=== PATIENT | male | born 1955 | race Caucasian/White ===

== ENCOUNTER 2016-09-08 08:10 | Day surgery (SDC) | payer OTHER ==
[2016-09-04 14:58] VITALS: BMI 25.8
[~2016-09-08 08:10] MED LIST: HYDROmorphone 1 MG/ML 1 ML SYRINGE IVP PRN; ONDANSETRON 4 MG/2 ML VIAL IVP ONE
[2016-09-08] MEDS: SODIUM CHLORIDE 0.9% 1,000 ML IV SCH ×2 (08:40→15:33)
[2016-09-08 08:46] LABS: Glucose,Whole Blood 101 mg/dL (75-99)
[2016-09-08 08:52] LABS: Basophils # (A) 0.1 k/uL (0-0.2); Basophils % (A) 1 %; CH 32.2; CHCM 34.5; Eosinophils # (A) 0.4 k/uL (0-0.7); Eosinophils % (A) 4 %; HCT 43.5 % (39.0-53.0); HDW 2.61; HGB 14.3 gm/dL (13.0-17.5); Luc # (Auto) 0.22; Luc % (Auto) 2; Lymphocytes # (A) 2.1 k/uL (1.0-4.8); Lymphocytes % (A) 22 %; MCH 30.9 pg (25.0-35.0); MCV 93.6 fL (80.0-100.0); Mean Platelet Volume 6.2; Monocytes # (A) 0.5 k/uL (0-1.0); Monocytes % (A) 6 %; Neutrophils # (A) 6.2 k/uL (1.3-7.7); Neutrophils % (A) 65 %; RBC 4.65 m/uL (4.30-5.90); RDW 13.2 % (11.5-15.5); WBC 9.5 k/uL (3.8-10.6); WBC (Perox) 9.57
[2016-09-08 09:03] LABS: Anion Gap 11 mmol/L; Blood Urea Nitrogen 23 mg/dL (9-20); Calcium 10.1 mg/dL (8.4-10.2); Carbon Dioxide 25 mmol/L (22-30); Chloride 105 mmol/L (98-107); Cholesterol 239 mg/dL (<200); Glucose 104 mg/dL (74-99); HDL Cholesterol 48 mg/dL (40-60); Non-African American GFR(MDRD) >60 (>60 ml/min/1.73 sqM); Potassium 4.3 mmol/L (3.5-5.1); Sodium 141 mmol/L (137-145); Triglycerides 164 mg/dL (<150)
[2016-09-08] MEDS ORDERED: PROPOFOL 10 MG/ML 20 ML VIAL IV ONE (12:05)
[2016-09-08] MEDS ORDERED: MIDAZOLAM 2 MG/2 ML VIAL ONE (12:05)
[2016-09-08] MEDS ORDERED: HYDROmorphone (PF) 1 MG/ML ONE (12:05)
[2016-09-08] MEDS ORDERED: ISOPROTERENOL 250 MCG/1.25 ML SYR IV ONE (12:05)
[2016-09-08] MEDS ORDERED: fentaNYL (PF) 50 MCG/ML 2 ML AMP ONE (12:05)
[2016-09-08] MEDS ORDERED: LIDOCAINE 2% INJ 20 MG/ML SQ ONE (12:45)
[2016-09-08] MEDS ORDERED: ACETAMINOPHEN TAB 325 MG TAB PO PRN (14:47)
[2016-09-08] MEDS ORDERED: ACETAMINOPHEN IV (For NPO) 1,000 MG in EMPTY BAG 1 BAG IVPB ONE (14:47)
[2016-09-08] MEDS ORDERED: HYDROcodone/APAP 5-325MG 1 EACH TAB PO PRN (14:47)
[2016-09-08] MEDS ORDERED: ALBUTEROL NEBULIZED 2.5 MG/3 ML INHALATION PRN (14:49)
--- NOTE | 2016-09-08 14:54 | P.PN ---
Progress Note - Text Patient was admitted for management of SVT. EP study revealed AV mai reentry. Successful ablation was performed of the tachycardia was rendered noninducible He has a history of diabetes, hypertension, current smoker TSH is normal at 1.25 Lipid panel is as follows Triglycerides 164 total cholesterol 239, LDL 158, HDL 48 Plan Discontinue atenolol Increase lisinopril to 10 mg by mouth daily Start atorvastatin 20 mg by mouth daily LDL goal of less than 70 mg/dL since he is a diabetic Diabetes management per Dr. Vasquez
[2016-09-08 15:17] VITALS: RESP 16
--- NOTE | 2016-09-08 15:31 | CE ---
DATE OF SERVICE: This is a 60-year-old male patient of Dr. Charlette Harmon and Dr. Tom Vasquez who had recurrent palpitations and documented supraventricular tachycardia of 186 beats a minute. He was brought in for an EP study and possible ablation. Patient brought to the EP Lab in a fasting state. Written informed consent was obtained prior to the procedure. The left pectoral area was prepped and draped as per protocol; 1% lidocaine was used for local anesthesia. A 6 Austrian sheath was placed in the left axillary vein and via this, a decapolar catheter was positioned in the coronary sinus for coronary sinus pacing and recording. The right groin was prepped and draped as per protocol and 3 venous sheaths were placed in the right femoral vein. Via these, diagnostic catheters were positioned in the right side (renal catheter, HIS bundle catheter and RV catheter). Pacing was performed from the high right atrium, coronary sinus and right ventricle. The sinus node recovery times were 914, 659 and 600 ms. AV node Wenckebach block 370 ms, VA Wenckebach block 370 ms, AV node Wenckebach block from the coronary sinus 350 ms. No delta waves are noted. Slow pathway noted at a pacing cycle length of 319 ms, atrial extrastimulation was performed and an A-jump was noted at 600/260 ms with single, double and triple echo beats and nonsustained AV node re-entrant tachycardia. Echo beats and SVT was repeatedly induced. Isuprel was used. HIS bundle pacing was performed, mai response was noted. A long sheath was used and a 4 mm ablation catheter was used. The slow pathway was mapped; 3-D mapping was performed. The HIS cloud was tagged. The coronary sinus also was tagged. Tricuspid valve was tagged. Mapping of the slow pathway was performed. RF ablation was performed just outside the coronary sinus at the floor and also within the coronary sinus and in the coronary sinus ostial roof. While good contact and good power and temperature were noted, only one junctional beat was noted. However, following that, there is no slow pathway conduction with straight pacing. Off Isuprel, the AV node Wenckebach block was 390 ms without any slow pathway condition, whereas with Isuprel the anterior conduction improved to 290 ms and no evidence of slow pathway conduction. Atrial extrastimulation was performed up to triple extrastimuli from the high right atrium and from the coronary sinus, only single echo beats were noted and no SVT was noted. VA Wenckebach block 240 ms, no SVT was noted. Isuprel was then turned off and then atrial ventricular extrastimulation was performed. Only occasional echo beats are noted early on but off Isuprel, no echo beats are noted. AV node Wenckebach block was 360 ms. All catheters were then removed and patient was transferred back to telemetry. RESULT: Diagnostic EP study revealing AV node re-entry as the mechanism of the tachycardia and SVT was induction was eliminated with RF ablation. No junctional beats are noted during RF ablation, but there was no evidence for slow pathway conduction with straight pacing after ablation and only occasional echo beats were noted. PLAN: Discontinue atenolol, maximize KIERA inhibitors and start statins.
[2016-09-08] MEDS: LACTATED RINGERS 1,000 ML IV SCH (15:33)
[2016-09-08 17:23] LABS: Glucose,Whole Blood 177 mg/dL (75-99)
[2016-09-08] MEDS: metFORMIN 500 MG TAB PO SCH (19:18)
[2016-09-08 20:54] LABS: Glucose,Whole Blood 107 mg/dL (75-99)
[2016-09-08] MEDS ORDERED: traZODone HCL 100 MG TAB PO SCH (21:00)
[2016-09-08] MEDS ORDERED: CLOMIPRAMINE HCL PO SCH (21:00)
[2016-09-08] MEDS ORDERED: QUEtiapine 400 MG TAB PO SCH (21:00)
[2016-09-08] MEDS ORDERED: lamoTRIgine 100 MG TAB PO SCH (21:00)
[2016-09-08] MEDS ORDERED: ATORVASTATIN 20 MG TAB PO SCH (21:00)
[2016-09-09 06:43] LABS: Glucose,Whole Blood 114 mg/dL (75-99)
[2016-09-09 07:56] VITALS: BP 118/68; PULSE 88; TEMP 98.7
[2016-09-09] MEDS: LACTATED RINGERS 1,000 ML IV SCH (08:17)
[2016-09-09] MEDS: metFORMIN 500 MG TAB PO SCH (08:22)
[2016-09-09] MEDS ORDERED: LISINOPRIL 10 MG TAB PO SCH (09:00)
== END 2016-09-09 10:53 | disposition home or self-care (01) ==
LOC: CATHEP 08:10 → 3OBS 14:29 → CATHEP 09-09 10:53
PROVIDERS: ATTEND Internal Medicine Clinical Cardiac Electrophysiology
DX: I47.1 Supraventricular tachycardia (principal); E78.5 Hyperlipidemia, unspecified; E11.9 Type 2 diabetes mellitus without complications; Z79.84 Long term (current) use of oral hypoglycemic drugs; F17.210 Nicotine dependence, cigarettes, uncomplicated; Z79.82 Long term (current) use of aspirin; Z79.899 Other long term (current) drug therapy
CPT/HCPCS: 93623; 93613; 93653; 80061; 80048; 84443; 85025; C1894; C1769; C1730 ×3; C1893; C1732; J2001; J2250; J3010; J1170; J2704

== ENCOUNTER → 2017-02-03 | Outpatient (CLI) | payer OTHER ==
--- NOTE | 2017-02-03 10:16 | US ---
EXAMINATION TYPE: US abdomen complete DATE OF EXAM: 02/03/2017 COMPARISON: NONE CLINICAL HISTORY: R10.9 Unspecified abdominal pain. EXAM MEASUREMENTS: Liver Length: 14.4 cm Gallbladder Wall: 0.1 cm CBD: 0.3 cm Spleen: 9.9 cm Right Kidney: 9.7 x 5.0 x 5.0 cm Left Kidney: 9.9 x 5.9 x 5.9 cm Pancreas: visualized portions wnl Liver: difficult to penetrate, some sparing noted around The spleen is normal in size. gallbladder Gallbladder: No stones seen Evidence for sonographic Wagner's sign: No CBD: wnl Spleen: wnl Right Kidney: No hydronephrosis or masses seen Left Kidney: No hydronephrosis or masses seen Upper IVC: wnl Abd Aorta: wnl Limited views of the pancreas are unremarkable. The liver is normal in size without biliary dilatation. It is echogenic and may be fatty infiltrated. The gallbladder is unremarkable without cholelithiasis. The gallbladder wall measures 1.4 mm. The dis bailee common hepatic duct measures 3 mm. The spleen is normal in size. Both kidneys are unremarkable. Limited views of the aorta and IVC are normal. IMPRESSION: PROBABLE FATTY INFILTRATION OF THE LIVER.
== END ==
LOC: RADUSWWP 09:21
PROVIDERS: ATTEND Family Medicine
DX: R10.9 Unspecified abdominal pain (principal)
CPT/HCPCS: 76700

== ENCOUNTER → 2017-08-21 | Outpatient (CLI) | payer BC ==
--- NOTE | 2017-08-21 14:50 | XR ---
EXAMINATION TYPE: XR cervical spine comp DATE OF EXAM: 08/21/2017 CLINICAL HISTORY: pain COMPARISON: NONE TECHNIQUE: Frontal, lateral, oblique, swimmers, and open mouth view of the cervical spine are obtaine d. FINDINGS: The cervical spine is visualized in its entirety from C1 thru the top of T1 level. It is s atisfactory in alignment without evidence of acute fracture or dislocation. The pre-vertebral soft t issue appears within normal limits. Severe degenerative disc space narrowing and large anterior osteo phytes at C4-5 C5-6 and C6-7. Bilateral C5-6 and C6-7 foraminal encroachment. The C1-C2 articulation is unremarkable on the open mouth view. The oblique images are within normal limits. IMPRESSION: No acute fracture or dislocation is seen in the cervical spine.ICD 10 NO FRACTURE, INITI AL EVALUATION
== END | disposition home or self-care (01) ==
LOC: RADXRMAIN 14:06
PROVIDERS: ATTEND Family Medicine
DX: M54.2 Cervicalgia (principal)
CPT/HCPCS: 72050

== ENCOUNTER → 2017-12-17 | Outpatient (CLI) | payer BC ==
--- NOTE | 2017-12-17 16:29 | MR ---
EXAMINATION TYPE: MR cervical spine wo con DATE OF EXAM: 12/17/2017 COMPARISON: 08/21/2017 radiographs of the cervical spine HISTORY: Neck pain x 8 mos, no trauma/surgery TECHNIQUE: Multiplanar, multisequence images of the cervical spine were acquired. FINDINGS: The cervical spine vertebral bodies maintain normal vertebral body heights and alignment. M ultilevel disc desiccation is seen. No suspicious subdural or epidural fluid collection is seen. Dege nerative pannus is seen around the C1-C2 articulation with mild narrowing at the foramen magnum witho ut significant stenosis. Multilevel disc desiccation is seen. Bone marrow signal is overall within no rmal limits. Visualized portions of the posterior fossa are grossly unremarkable on this unenhanced e xamination. C2-C3: There is mild right uncovertebral hypertrophy resulting in minimal right neural foraminal narr owing. No spinal canal stenosis or left-sided neural foraminal narrowing. C3-C4: There is a small right paracentral disc herniation, uncovertebral hypertrophy and facet arthro bethany creating mild right neural foraminal narrowing and moderate left neural foraminal narrowing as well as mild spinal canal stenosis. C4-C5: There is a central disc herniation impressing upon the ventral subarachnoid space and ventral cervical cord. Mild uncovertebral hypertrophy and facet arthropathy creates mild bilateral neural for aminal narrowing. Spinal stenosis is also mild. C5-C6: There is a broad-based disc bulge with facet arthropathy and uncovertebral hypertrophy severel y narrowing the left neural foramen and mildly narrowing the right neural foramen as well as mildly n arrowing the spinal canal. C6-C7: There is a small central disc herniation superimposed upon a broad-based disc bulge with facet arthropathy and uncovertebral hypertrophy severely narrowing the left neural foramen and moderately narrowing the right neural foramen. This results in mild spinal canal stenosis. Extension caudally is right paracentral of the disc herniation with 3 mm associated disc extrusion in a subligamentous loc ation. C7-T1: Right eccentric broad-based disc bulge is seen in combination with facet arthropathy and uncov ertebral hypertrophy moderately narrowing the right neuroforamen. Left neuroforamen is patent. No sig nificant spinal canal stenosis. IMPRESSION: 1. Small right paracentral disc herniation at C3-C4 in combination with degenerative changes creating mild right neural foraminal narrowing, moderate left neural foraminal narrowing and mild spinal tona l stenosis. 2. Central disc herniation at C4-C5 creating mild spinal canal stenosis. 3. Degenerative disc disease at C5-C6 creating severe left neural foraminal narrowing. 4. Small central disc herniation at C6-C7 with caudal disc extrusion 3 mm resulting in mild spinal ca nal stenosis and in correlation with degenerative changes severely narrowing the left neural foramen and moderately narrowing the right neural foramen. 5. No evidence of vertebral body height loss or malalignment.
== END | disposition home or self-care (01) ==
LOC: RADMRIMAIN 14:02
PROVIDERS: ATTEND Family Medicine
DX: M50.21 Other cervical disc displacement, high cervical region (principal); M99.71 Connective tissue and disc stenosis of intervertebral foramina of cervical region; M50.322 Other cervical disc degeneration at C5-C6 level; M48.02 Spinal stenosis, cervical region
CPT/HCPCS: 72141

== ENCOUNTER → 2018-01-13 | Outpatient (CLI) | payer BC ==
[2018-01-12 11:18] VITALS: BMI 26.6
[2018-01-13 12:50] VITALS: BP 149/81; PULSE 86; RESP 18; TEMP 98.3
--- NOTE | 2018-01-13 13:29 | P.PAINCN ---
History of Present Illness - Reason for Consult Consult date: 01/13/18 - History of Present Illness This 62 years old male with a chronic history of severe neck pain, with radiation to the shoulder blade area bilaterally, more intense towards the left side, pain started 6 months ago, he denies any initiating event, no history of trauma or heavy lifting or accident, the Pain is constant, increased with any neck movement, intensity of the pain is 6/10 increased to 10 over 10 and occasionally, he denies any motor or sensory deficits, he denies any changes in bowel movement or urination, no fever or night sweats, he tried physical therapy without any benefit Past Medical History Past Medical History: Diabetes Mellitus, Hypertension, Osteoarthritis (OA), Sleep Apnea/CPAP/BIPAP Additional Past Medical History / Comment(s): neck pain numbness left shoulder, rapid heart rate,see Dr Reis [facility] & [facility],no cpap History of Any Multi-Drug Resistant Organisms: None Reported Past Surgical History: Cardiac Ablation Additional Past Surgical History / Comment(s): colonoscopy Past Anesthesia/Blood Transfusion Reactions: No Reported Reaction Past Psychological History: Bipolar Smoking Status: Current every day smoker Past Alcohol Use History: Occasional Additional Past Alcohol Use History / Comment(s): 1ppd for 45 yrs. Past Drug Use History: None Reported - Past Family History Mother Family Medical History: No Reported History Medications and Allergies Home Medications Medication Instructions Recorded Confirmed Type traZODone HCL [Desyrel] 200 mg PO HS 14 Days tab 12/04/14 01/13/18 Rx Albuterol Inhaler [Ventolin Hfa 2 puff INHALATION RT-Q6H PRN 12/03/15 01/13/18 History Inhaler] QUEtiapine [SEROquel] 400 mg PO HS 12/03/15 01/13/18 History clomiPRAMINE HCL 225 mg PO HS 12/03/15 01/13/18 History lamoTRIgine [LaMICtal] 100 mg PO HS 09/08/16 01/13/18 History Ibuprofen [Motrin] 800 mg PO DIRECTED PRN 01/13/18 01/13/18 History Pantoprazole Sodium [Protonix] 40 mg pe PO DAILY 01/13/18 01/13/18 History Allergies Allergy/AdvReac Type Severity Reaction Status Date / Time No Known Allergies Allergy Verified 01/13/18 12:38 Physical Exam Vitals: Vital Signs Temp Pulse Resp BP 01/13/18 12:42 98.3 F 86 18 149/81 Social history : smoker , occasional ETOH , use marijuana. Review of Systems : 1- Constitutional : no chills , no fever , no night sweats , 2- Ears : no ear discharge , no change in hearing 3-Nose, Mouth ,Throat ; no bleeding gums, no sore throat , no epistaxis , 4-Cardiovascular : Denies chest pain, , no orthopnea , no palpitation 5-Respiratory : Denies cough , no dyspnea , no hemoptysis 6-Gastrointestinal :, no change in bowel habits , no coffee- ground emesis . 7-Genitourinary : No hematuria , no discharge , no incontinence, 8-Musculoskeletal : No gait dysfunction , report low back pain , 9- Neurological : no ataxia , no tremor , no sezure , 10-Psychatric , no suicidal ideation no hallucination 11- Endocrine : no cold intolerence , no polyuria , no polydypsia , 12-Hematologic : no easy bleeding , no easy brusing , 13-Allergic / immunology : no angioedema , no wheezing ,no allergic rhinitis 14-Integumentary : no brttle nails , no change hair / nails , no foot/leg ulcers . Physical Examinations : 1-Constitutional : Cooperative , not in acute distress . 2-HEENT : nech ; supple , no Lymphadenopathy , no Thyromegaly , :eyes , no icterus, no photophobia . ENT : , normal oropharynx , no Thrush 3- Respiratory : Chest clear to auscultations Bilaterally , no wheezing . 4- Cardiovascular : regular rate and rhythem , S1 , S2 , no S3 , no S4. 5- Gastrointestinal: abdomen soft no tenderness , no organomegally . 6- Genitourinary : Defferred . 7-Integumentary : No cellulitis , no ulcers , normal skin turgor , no cyanotic . 8- neurologic : Cranial nerve II to XII intact , no focal neurological deffecit 9-psychatric : alert , oriented X 3 , appropriate affect , intact judgment and insight . 10-Lymphatic : no Lymphadenopathy. 11- musculoskeltal: normal gait Cervical Spine motor stregnth in the deltoid and biceps, normal right side , normal Left side motor stregnth biceps and the wrist extensors normal right side ,normal left side . motor stregnth in the triceps muscle . normal Right side , normal Left side deep tendon reflexes normal at the biceps , normal at Brachioradialis , normal at triceps. positive cervical facet loading test . Lumber spine moter stegnth lower extremities ,thigh and legs 5/5 Right side , 5/5 Left side Results Comments: MRI of the cervical spine C3 4 disc herniation and C4 5 , C5 6 and C6 7 and C7- T1 facet joint hypertrophy , severe left C5 6 foraminal narrowing Assessment and Plan Plan: Assessment and plan= chronic severe neck pain secondary to combined component of cervical herniated disc disease and cervical facet arthropathy he is good candidate to have cervical epidural steroid injections under fluoroscopy guidance at C7-T1, and if he continued to have pain after 2 epidural steroid injection then we will schedule patient to have diagnostic medial branch block cervical area, and possible radiofrequency Time with Patient: Greater than 30 PQRS Measure Charge Sheet Measure #130: Documentation of Current Meds in Medical Chart: Patient's medications documented in chart Measure #226: Tobacco Use: Screen & Cessation Intervention: Pt screened for tobacco use AND intervention given Measure #111: Pneumonia Vaccination: Pneumococcal vaccine NOT administered or previously given Measure #47: Advance Care Plan: Advance care planning discussed & documented, pt chose/unable to give Measure #412: Opioid Treatment Agreement: No documentation of signed opioid treatment agreement Measure #408: Opioid Therapy Follow-up Evaluation: Patient had NO f/u eval minimum every 3 months during opioid therapy Measure #317: Preventitive Care & Scrn High Bld Press & F/U: Pre-hypertensive or hypertensive BP documented, pt will f/u with PCP Measure #128: Body Mass Index (BMI) Screening & Follow-up: BMI documented ABOVE normal parameters - f/u documented Measure #131: Pain Assessment & Follow-up: Pain positive & plan documented, Follow-up scheduled Measure #431: Unhealthy Alcohol Use Preventative Care & Scrn: Patient not identified as an unhealthy alcohol user PQRS Narrative: Smoking Status Current every day smoker Do You Want the Pneumonia Vaccine Up to Date Vaccine AT THIS TIME? Blood Pressure 149/81 Pain Intensity [Left Neck] 7 Hx Alcohol Use (MH) Yes: social Home Medications: Ambulatory Orders traZODone HCL [Desyrel] 200 mg PO HS 14 Days tab 12/04/14 Albuterol Inhaler [Ventolin Hfa Inhaler] 2 puff INHALATION RT-Q6H PRN 12/03/15 QUEtiapine [SEROquel] 400 mg PO HS 12/03/15 clomiPRAMINE HCL 225 mg PO HS 12/03/15 lamoTRIgine [LaMICtal] 100 mg PO HS 09/08/16 Ibuprofen [Motrin] 800 mg PO DIRECTED PRN 01/13/18 Pantoprazole Sodium [Protonix] 40 mg pe PO DAILY 01/13/18
== END | disposition home or self-care (01) ==
LOC: PNWHC3 12:04
PROVIDERS: ATTEND Specialist
DX: G89.29 Other chronic pain (principal); M50.21 Other cervical disc displacement, high cervical region; M46.92 Unspecified inflammatory spondylopathy, cervical region; F17.200 Nicotine dependence, unspecified, uncomplicated; Z79.899 Other long term (current) drug therapy; Z79.1 Long term (current) use of non-steroidal anti-inflammatories (NSAID)
CPT/HCPCS: 99211

== ENCOUNTER 2018-01-18 07:15 | Day surgery (SDC) | payer BC ==
[2018-01-14 11:22] VITALS: BMI 26.6
[2018-01-18] MEDS ORDERED: LACTATED RINGERS 1,000 ML IV SCH (07:45)
[2018-01-18 08:08] VITALS: TEMP 98.1
[2018-01-18] MEDS ORDERED: LIDOCAINE 1% 20 ML VIAL (10MG/ML) FOR IV START INTRADERMA ONE (08:13)
[2018-01-18] MEDS ORDERED: IV FLUID CONTINUATION 1,000 ML IV ONE ×2 (09:05)
--- NOTE | 2018-01-18 09:10 | P.PCN ---
Date of Procedure: 01/18/18 Description of Procedure: . PROCEDURE 1. Cervical epidural steroid injection under fluoroscopic guidance, C7-T1 2. Cervical epidurogram. PREOPERATIVE DIAGNOSIS: 1- Cervical Degenerative Disc Diseases 2- Cervical radiculopathy., 3-cervical spondylosis with cervical Facet arthropathy without myelopathy POSTOPERATIVE DIAGNOSIS: : 1- Cervical Degenerative Disc Diseases , 2- Cervical radiculopathy. 3-,cervical spondylosis with cervical Facet arthropathy without myelopathy ANESTHESIA: Local anesthesia with 1% lidocaine and IV conscious sedation with Versed 2 mg EBL 0 PROCEDURE INDICATION: The patient with neck pain and radiculitis unresponsive to conservative treatment consents for procedure. PROCEDURE DESCRIPTION / TECHNIQUE: The patient was seen and identified in the preoperative area. Risks, benefits, complications, including but not limited to infections ,bleeding , allergic reactions to the medications ,and not complete pain releife, and alternatives were discussed with the patient, the patient agreed to proceed with the procedure and signed the consent. Patient was taken to the OR and time out was completed. The patient was placed in the prone position on the procedure table. A pillow was placed under the patients chest to increase the cervical interlaminar space. The cervical area was prepped and draped in the usual sterile fashion. Vital signs were closely monitored during the procedure. Conscious sedation was used during the procedure to decrease patients anxiety. Using anterior-posterior fluoroscopy, the C7-T1 interlaminar space was identified and the skin over this site was marked and then infiltrated with 1% lidocaine subcutaneously. Subsequently, a 20-gauge 3-1/2-inch Tuohy epidural needle was inserted and advanced toward the epidural space by means of the `` [id number] technique and guided by AP and contralateral oblique fluoroscopy. The correct needle position in the epidural space was verified with the injection of 2 mL of the water soluble contrast dye [id number]-180 and observing an excellent epidurogram with the epidural spread of the dye, after negative aspiration for blood and CSF and in the absence of paresthesias. Again after negative aspiration, mixture containing 20 mg Dexamethasone and 2 ml of preservative-free normal saline injected and a washout of epidurogram was seen. Needle was withdrawn intact, skin was cleansed, and bandages were applied. Complications: none. Disposition: patient was placed in supine position and transferred to the recovery room area in stable condition and there was no evidence of upper or lower extremity motor or sensory deficit after the procedure patient was discharged from recovery room after discharge criteria met and home discharge instructions was given by the staff and patient will follow with the pain clinic in 2-4 weeks
--- NOTE | 2018-01-18 09:12 | FL ---
EXAMINATION TYPE: FL guided pain mgmt statistic DATE OF EXAM: 01/18/2018 COMPARISON: NONE HISTORY: Neck pain TECHNIQUE: Fluoroscopy. FINDINGS/IMPRESSION: Fluoroscopic guidance was provided during procedure performed by Dr. Ch. A total of 23 seconds of fluoroscopic time was utilized during the procedure and 2 spot images was acq uired demonstrating localization over the cervical thoracic spine.
[2018-01-18 09:30] VITALS: BP 131/77; PULSE 88; RESP 16
== END 2018-01-18 09:34 | disposition home or self-care (01) ==
LOC: ORPAIN 07:15
PROVIDERS: ATTEND Anesthesiology
DX: G89.29 Other chronic pain (principal); M50.10 Cervical disc disorder with radiculopathy, unspecified cervical region; M47.22 Other spondylosis with radiculopathy, cervical region; M48.02 Spinal stenosis, cervical region; M50.11 Cervical disc disorder with radiculopathy, high cervical region; I10 Essential (primary) hypertension; M19.90 Unspecified osteoarthritis, unspecified site; E11.9 Type 2 diabetes mellitus without complications; G47.30 Sleep apnea, unspecified; F17.210 Nicotine dependence, cigarettes, uncomplicated; Z79.899 Other long term (current) drug therapy
CPT/HCPCS: 62321; J2250; J1100; Q9966

== ENCOUNTER → 2018-03-02 | Day surgery (SDC) | payer BC ==
[2018-02-24 14:34] VITALS: BMI 25.4
[~2018-03-02] MED LIST changes: -HYDROmorphone 1 MG/ML 1 ML SYRINGE IVP PRN; +IV FLUID CONTINUATION 1,000 ML IV ONE; +LACTATED RINGERS 1,000 ML IV SCH; +LIDOCAINE 1% 20 ML VIAL (10MG/ML) FOR IV START INTRADERMA ONE; -ONDANSETRON 4 MG/2 ML VIAL IVP ONE
[2018-03-02 07:56] VITALS: TEMP 97.6
[2018-03-02 08:10] LABS: Glucose,Whole Blood 159 mg/dL (75-99)
--- NOTE | 2018-03-02 08:59 | P.PCN ---
Date of Procedure: 03/02/18 Procedure(s) Performed: . PROCEDURE 1. Cervical epidural steroid injection under fluoroscopic guidance, C7-T1 2. Cervical epidurogram. PREOPERATIVE DIAGNOSIS: 1- Cervical Degenerative Disc Diseases 2- Cervical radiculopathy., 3-cervical spondylosis with cervical Facet arthropathy without myelopathy POSTOPERATIVE DIAGNOSIS: : 1- Cervical Degenerative Disc Diseases , 2- Cervical radiculopathy. 3-,cervical spondylosis with cervical Facet arthropathy without myelopathy ANESTHESIA: Local anesthesia with 1% lidocaine and IV sedation with Versed 2 mg and Fentanyl 50 mcg. EBL 0 PROCEDURE INDICATION: The patient with neck pain and radiculitis unresponsive to conservative treatment consents for procedure. PROCEDURE DESCRIPTION / TECHNIQUE: The patient was seen and identified in the preoperative area. Risks, benefits, complications, including but not limited to infections ,bleeding , allergic reactions to the medications ,and not complete pain releife, and alternatives were discussed with the patient, the patient agreed to proceed with the procedure and signed the consent. Patient was taken to the OR and time out was completed. The patient was placed in the prone position on the procedure table. A pillow was placed under the patients chest to increase the cervical interlaminar space. The cervical area was prepped and draped in the usual sterile fashion. Vital signs were closely monitored during the procedure. Conscious sedation was used during the procedure to decrease patients anxiety. Using anterior-posterior fluoroscopy, the C7-T1 interlaminar space was identified and the skin over this site was marked and then infiltrated with 1% lidocaine subcutaneously. Subsequently, a 20-gauge 3-1/2-inch Tuohy epidural needle was inserted and advanced toward the epidural space by means of the `` hanging-drop technique and guided by AP and lateral fluoroscopy. The correct needle position in the epidural space was verified with the injection of 2 mL of the water soluble contrast dye Isovue-200 and observing an excellent epidurogram with the epidural spread of the dye, after negative aspiration for blood and CSF and in the absence of paresthesias. Again after negative aspiration, mixture containing 20 mg Dexamethasone and 2 ml of preservative- free normal saline injected and a washout of epidurogram was seen. Needle was withdrawn intact, skin was cleansed, and bandages were applied. Complications= none. Disposition= patient was placed in supine position and transferred to the recovery room area in stable condition and there was no evidence of upper or lower extremity motor or sensory deficit after the procedure patient was discharged from recovery room after discharge criteria met and home discharge instructions was given by the staff and patient will follow with the pain clinic in 2-4 weeks
[2018-03-02 09:04] VITALS: RESP 20
[2018-03-02 09:20] VITALS: BP 123/76; PULSE 85
--- NOTE | 2018-03-02 14:33 | FL ---
Fluoroscopy HISTORY: Pain 3 seconds fluoroscopy time supplied to the referring clinician. 1 intraoperative C-arm images docume nt the procedure. See dictated report from anesthesia.
== END | disposition home or self-care (01) ==
LOC: ORPAIN 07:17
PROVIDERS: ATTEND Specialist
DX: M50.10 Cervical disc disorder with radiculopathy, unspecified cervical region (principal); M47.22 Other spondylosis with radiculopathy, cervical region
CPT/HCPCS: 62321; J2250; J1100; J3010; Q9966

== ENCOUNTER → 2018-03-15 | Outpatient (CLI) | payer BC ==
[2018-03-15 12:00] VITALS: BP 119/76; PULSE 94; RESP 16
--- NOTE | 2018-03-15 12:04 | P.PN ---
Subjective Progress Note Date: 03/15/18 This is a 62-year-old gentleman with history of neck pain with radiation to the left shoulder. The patient had 2 cervical epidural steroid injection previously which gave him only 1 day of pain relief as she states. His pain gets worse by turning to the right. He denies any numbness or tingling in the arms or any weakness in the upper or lower extremities. Today, pt denies new-onset weakness, bowel/bladder incontinence, or any other signs or symptoms of cauda equina syndrome. There are no signs of acute intoxication, and no indications of medication diversion or overuse. In addition to above, 13-point review of systems is also negative for chest pain , shortness of breath, changes in vision, changes in hearing, new onset weakness , abdominal pain, diarrhea, extreme fatigue, malaise, fever, skin changes, homicidal or suicidal ideation, or bowel or bladder incontinence. Vital Signs: Reviewed in EMR Gen: AAOx3, NAD HEENT: PERRLA,hearing grossly normal Pulm: resp unlabored,CTA Heart:S1,S2, No Mur Neck: supple, trachea midline Neuro exam of the upper extremities within normal limits Neuro: CN II-XII grossly intact, Imaging: Reviewed in EMR/chart Assessment: Cervical spondylosis without myelopathy Plan: 1. Explanation: Opioid and psychological risk scores were reviewed. Diagnoses , prognoses, and multiple treatment options including but not limited to physical therapy, interventional therapies, adjuvant medical therapies, narcotic medication therapies, and surgery were discussed with the patient and all questions were answered to the patient's satisfaction. 2. Opioid agreement: We do not prescribe opioids 3. Counseling: The patient was counseled extensively on SMOKING CESSATION, BODY MASS INDEX, EXERCISE. Specifically, the patient was instructed regarding the importance of smoking cessation, obesity, and exercise in the context of both chronic pain and overall health. 4. Procedures: Schedule for a diagnostic cervical medial branch block on the left side for levels C3,4, 5, and 6. 5. Consultations: None 6. Investigations: None 7. Medications: None at this point 8. Disposition: Return to the above-mentioned procedure 9. Maps were reviewed and were appropriate. Objective - Vital Signs Vital signs: Vital Signs Temp Pulse 94 03/15/18 11:54 Resp 16 03/15/18 11:54 BP 119/76 10/08/18 11:54 Pulse Ox 98 03/15/18 11:54 Intake & Output 03/14/18 03/15/18 03/15/18 18:59 06:59 18:59 Weight 72.575 kg
== END | disposition home or self-care (01) ==
LOC: PNWHC3 11:44
PROVIDERS: ATTEND Anesthesiology
DX: M47.812 Spondylosis without myelopathy or radiculopathy, cervical region (principal)
CPT/HCPCS: 99211

== ENCOUNTER → 2018-05-04 | Day surgery (SDC) | payer BC ==
[2018-04-26 11:41] VITALS: BMI 27.4
[~2018-05-04] MED LIST changes: -IV FLUID CONTINUATION 1,000 ML IV ONE; -LACTATED RINGERS 1,000 ML IV SCH; -LIDOCAINE 1% 20 ML VIAL (10MG/ML) FOR IV START INTRADERMA ONE; +SODIUM CHLORIDE 0.9% 500 ML 500 ML IV ONE
[2018-05-04 09:02] VITALS: TEMP 98.1
--- NOTE | 2018-05-04 10:21 | P.PCN ---
Date of Procedure: 05/04/18 Procedure(s) Performed: PREOPERATIVE DIAGNOSIS: Cervical Spondylosis with Facet Arthropathy.without myelopathy POSTOPERATIVE DIAGNOSIS: Cervical Spondylosis Facet Arthropathy. Without myelopathy PROCEDURES: Diagnostic , left C3-4, C4-5 , C5-6, medial branch blocks, with fluoroscopic guidance ( 3 Leveles Left side ) ANESTHESIA: Local with 1% lidocaine; moderate sedation with Versed. 2 mg , and fentanyl 50 micrograms EBL: Minimal PROCEDURE INDICATION: The patient with neck pain secondary to cervical arthropathy unresponsive to more conservative treatments. PROCEDURE DESCRIPTION / TECHNIQUE: The patient was seen and identified in the preoperative area. Risks, benefits, complications, and alternatives were discussed with the patient, the patient agreed to proceed with the procedure and signed the consent. IV was started. Vital signs remained stable throughout the procedure. Patient was taken to the OR and time out was completed. The patient was placed in the prone position on the procedure table. A pillow was placed under the patients chest to increase the cervical interlaminar space. The cervical area was prepped and draped in the usual sterile fashion. Critical pause was taken. Vital signs were closely monitored during the procedure. Conscious sedation was used during the procedure to decrease patients anxiety. Using cross-table lateral fluoroscopy, the centroid of the trapezoid of left C3 , C4 , C5 was identified, marked, and localized with 1% lidocaine 1 ml at each level for skin and Sub Q infiltrations . Subsequently, a 25 G 3 spinal needle was advanced guided by fluoroscopy to the centroid of the trapezoid of Left C3, C4 , C5, Crivitz tip position was confirmed at the centroid of the trapezoids of left C3 , C4 , C5 with anteroposterior fluoroscopy. Subsequently, 1.5 ml of preservative-free Ropivacaine 0.5% mixed with Depo- Medrol 40 mg and half ml of the mixture was injected after negative aspiration for blood and CSF. Crivitz was then removed intact . COMPLICATIONS: No acute complications. DISPOSITION / PLANS: The patient was placed in a supine position and transferred to the recovery area in a stable condition for observation and was discharged from the recovery room after meeting discharge criteria. Home discharge instructions given to the patient by the staff. The patient was reexamined prior to discharge. The patient will schedule a follow up in the clinic in 2-4 weeks.
[2018-05-04 10:51] VITALS: BP 147/78; PULSE 90; RESP 18
--- NOTE | 2018-05-04 16:34 | FL ---
Fluoroscopy INDICATION: Pain FINDINGS: Fluoroscopy time: 21 seconds. Images obtained: 2. IMPRESSIONS: 1. Documentation of fluoroscopy.
== END | disposition home or self-care (01) ==
LOC: ORPAIN 08:47
PROVIDERS: ATTEND Specialist
DX: M47.812 Spondylosis without myelopathy or radiculopathy, cervical region (principal); M46.92 Unspecified inflammatory spondylopathy, cervical region
CPT/HCPCS: 64490; 64491; 64492; J2250; J1030; J3010; 99152

== ENCOUNTER → 2018-06-10 | Outpatient (CLI) | payer BC ==
[2018-06-10 12:05] VITALS: BP 118/68; PULSE 99; RESP 18
--- NOTE | 2018-06-10 12:18 | P.PAINPG ---
Subjective Progress Note Date: 06/10/18 This is follow-up visit for this patient with a history of severe and chronic neck pain secondary to cervical degenerative disc diseases , cervical spondylosis with facet arthropathy, We have done interventional pain procedures cervical epidural steroid injections 2, patient had no benefit from it, and recently we have done diagnostic medial branch block cervical area Left side C3/C4/C5 , patient had significant decrease in his pain level after each diagnostic medial branch block, his VAS before the first diagnostic block was 7/10 dropped to 0/10 after the block and the pain relief lasted for few day , and the same results happened after the second diagnostic medial branch block cervical area Patient denies any motor or sensory deficit , patient denies any fever or night sweats, denies any change in the bowel movements or urination Physical Examinations : 1-Constitutional : Cooperative , not in acute distress . 2-HEENT : nech ; supple , no Lymphadenopathy , no Thyromegaly , normal thyroid size . eyes : no ptosis , no icterus, no photophobia . ENT : normal of hearing , normal oropharynx , no Thrush . 3- Respiratory : Chest clear to auscultations Bilaterally , no wheezing , no Rhonchi . 4- Cardiovascular : regular rate and rhythem , S1 , S2 , no S3 , no S4. 5- Gastrointestinal : abdomen soft no tenderness , bowel sounds positive all four quadrents , no organomegally . 6- Genitourinary : Defferred . 7- neurologic: Cranial nerve II to XII intact , no focal neurological deffecit . 8- Psychatric: alert , oriented X 3 , appropriate affect , intact judgment and insight . 9- Lymphatic : no Lymphadenopathy . 10- Musculoskeltal : exams of the cervical spine = motor strength normal bilateral upper extremities facet loading test cervical area positive. exams of the Lumber spine =motor strength lower extremities ,thigh and legs .5/5 Assessment and plan = Chronic low back pain secondary to cervical degenerative disc disease , cervical spondylosis with facet arthropathy without myelopathy Patient had excellent pain relief after each diagnostic medial branch block, and he would be good candidate to have radiofrequency ablation of the medial branch cervical area He will be good candidate to have radiofrequency ablation of the left side C3/C4/C5 under fluoroscopy guidance. Procedure risk and benefits, and alternatives discussed with the patient , and he agreed with proceeding Objective - Vital Signs Vital signs: Vital Signs Temp Pulse 99 06/10/18 11:58 Resp 18 06/10/18 11:58 BP 118/68 06/10/18 11:58 Pulse Ox 95 06/10/18 11:58 Intake & Output 06/09/18 06/10/18 06/10/18 18:59 06:59 18:59 Weight 74.843 kg PQRS Measure Charge Sheet Measure #130: Documentation of Current Meds in Medical Chart: Patient's medications documented in chart Measure #226: Tobacco Use: Screen & Cessation Intervention: Pt screened for tobacco use AND intervention given Measure #111: Pneumonia Vaccination: Pneumococcal vaccine NOT administered or previously given Measure #47: Advance Care Plan: Advance care planning discussed & documented, pt chose/unable to give Measure #412: Opioid Treatment Agreement: No documentation of signed opioid treatment agreement Measure #408: Opioid Therapy Follow-up Evaluation: Patient had NO f/u eval minimum every 3 months during opioid therapy Measure #317: Preventitive Care & Scrn High Bld Press & F/U: Normal blood pressure, f/u not required Measure #128: Body Mass Index (BMI) Screening & Follow-up: BMI documented ABOVE normal parameters - f/u documented Measure #131: Pain Assessment & Follow-up: Pain positive & plan documented, Follow-up scheduled Measure #431: Unhealthy Alcohol Use Preventative Care & Scrn: Patient not identified as an unhealthy alcohol user PQRS Narrative: Smoking Status Current every day smoker Do You Want the Pneumonia No Vaccine AT THIS TIME? Blood Pressure 118/68 Pain Intensity [Left Neck] 7 Scale Used Numeric (1 - 10) Hx Alcohol Use (MH) Yes: social Home Medications: Ambulatory Orders traZODone HCL [Desyrel] 200 mg PO HS 14 Days tab 12/04/14 Albuterol Inhaler [Ventolin Hfa Inhaler] 2 puff INHALATION RT-Q6H PRN 12/03/15 QUEtiapine [SEROquel] 400 mg PO HS 12/03/15 clomiPRAMINE HCL 225 mg PO HS 12/03/15 lamoTRIgine [LaMICtal] 100 mg PO HS 09/08/16 Ibuprofen [Motrin] 800 mg PO Q8H PRN 01/13/18 Pantoprazole Sodium [Protonix] 40 mg PO DAILY 01/13/18 Controlled Substance Measures - Controlled Substance Measures Is patient prescribed a controlled substance at discharge?: No When asked, does pt state using other controlled substances?: No If prescribed controlled substance>3 days was MAPS reviewed?: No If Rx opioid, was Start Talking consent form obtained?: No If opioid is for acute pain is fill amount 7 days or less?: No Was information provided regarding opioid addiction?: No
== END ==
LOC: PNWHC3 11:34
PROVIDERS: ATTEND Specialist
DX: G89.29 Other chronic pain (principal); M50.30 Other cervical disc degeneration, unspecified cervical region; M47.812 Spondylosis without myelopathy or radiculopathy, cervical region; M46.92 Unspecified inflammatory spondylopathy, cervical region; Z79.899 Other long term (current) drug therapy; Z79.4 Long term (current) use of insulin
CPT/HCPCS: 99211

== ENCOUNTER 2018-06-24 06:33 | Day surgery (SDC) | payer BC ==
[2018-06-22 15:42] VITALS: BMI 26.6
[~2018-06-24 06:33] MED LIST changes: -SODIUM CHLORIDE 0.9% 500 ML 500 ML IV ONE; +SODIUM CHLORIDE 0.9% 500 ML 500 ML IV SCH
[2018-06-24 06:51] VITALS: TEMP 97.4
[2018-06-24 06:52] LABS: Glucose,Whole Blood 109 mg/dL (75-99)
[2018-06-24] MEDS ORDERED: LACTATED RINGERS 1,000 ML IV ONE (06:52)
--- NOTE | 2018-06-24 07:35 | P.PCN ---
Date of Procedure: 06/24/18 Procedure(s) Performed: PREOPERATIVE DIAGNOSIS: Cervical spondylosis with Facet Arthropathy without myelopathy. POSTOPERATIVE DIAGNOSIS: Cervical spondylosis with Facet Arthropathy without myelopathy. PROCEDURES: Radiofrequency thermocoagulation, Left C3, C4, C5, medial branch with Fluroscopy Guidence ( 3 leveles ) ANESTHESIA: Local with Ropivacaine 0.5 % , moderate sedation with fentanyl 100 micrograms and Versed. 2 mg EBL: Minimal PROCEDURE INDICATION: The patient with neck pain secondary to cervical arthropathy who had more than 50% relief of her pain with previous diagnostic cervical medial branch block. PROCEDURE DESCRIPTION / TECHNIQUE: The patient was seen and identified in the preoperative area. Risks, benefits, complications, and alternatives were discussed with the patient, the patient agreed to proceed with the procedure and signed the consent. IV was started. Vital signs remained stable throughout the procedure. Patient was taken to the OR and time out was completed. The patient was placed in the prone position on the procedure table. A pillow was placed under the patient s chest to increase the cervical interlaminar space. The cervical area was prepped and draped in the usual sterile fashion. Critical pause was taken. Vital signs were closely monitored during the procedure. Conscious sedation was used during the procedure to decrease patients anxiety. Using cross-table lateral fluoroscopy, the centroid of the trapezoid of left C3 , C4, C5, were identified, marked, and localized with 1% lidocaine. Subsequently, a 20 [id number] radiofrequency cannula with a 10-mm active tip was advanced guided by fluoroscopy to the centroid of the trapezoid of left C3 , C4, C5, . Needle tip position was confirmed at the centroid of the trapezoids of left C3, C4, C5, with anteroposterior fluoroscopy. Each site then underwent sensory testing at 50 Hz and 0 to 1 volt and motor testing at 2 Hz and 0 to 3 volt with local stimulation, but no radicular symptoms down the arm. Thereafter the left C3, C4,C5 sites underwent radiofrequency thermocoagulation at 80 degrees celsius for 90 seconds after injecting 0.5 ml of PF Ropivacaine 0.5 %. After thermocoagulation, 1 ml of the block solution containing Kenalog 40 mg and 5 mL of preservative-free normal saline was injected at the left C3, C4, C5 , levels after negative aspiration of CSF and blood and with no paresthesias. Cannulas were retracted while injecting lidocaine 1% until the needle is out. Skin was cleansed and bandages were applied. COMPLICATIONS: No acute complications. DISPOSITION / PLANS: The patient was placed in a supine position and transferred to the recovery area in a stable condition for observation and was discharged from the recovery room after meeting discharge criteria. Home discharge instructions given to the patient by the staff. The patient was reexamined prior to discharge. The patient will schedule a follow up in the clinic in 2-4 weeks.
[2018-06-24] MEDS ORDERED: IV FLUID CONTINUATION 1,000 ML IV ONE (07:43)
[2018-06-24 07:55] VITALS: BP 121/65; PULSE 82; RESP 18
--- NOTE | 2018-06-24 08:27 | FL ---
EXAMINATION TYPE: FL guided pain mgmt statistic DATE OF EXAM: 06/24/2018 CLINICAL HISTORY: Neck pain. TECHNIQUE: Fluoroscopy. COMPARISON: None. FINDINGS: Fluoroscopic guidance was provided during pain relief procedure performed by Dr. Hayes . A total of 23 seconds of fluoroscopic time was utilized during the procedure and two spot images a re acquired. Images acquired shows needle localization of the cervical spine at multiple levels. IMPRESSION: As Above.
== END 2018-06-24 08:18 | disposition home or self-care (01) ==
LOC: ORPAIN 06:33
PROVIDERS: ATTEND Specialist
DX: M47.812 Spondylosis without myelopathy or radiculopathy, cervical region (principal); G47.33 Obstructive sleep apnea (adult) (pediatric); E11.9 Type 2 diabetes mellitus without complications
CPT/HCPCS: 64633; 64634; J2250; J1030; J3010; 99152

== ENCOUNTER → 2018-07-15 | Outpatient (CLI) | payer BC ==
[2018-07-15 14:42] VITALS: BP 159/86; PULSE 75; RESP 16
--- NOTE | 2018-07-16 20:23 | P.PN ---
Subjective Progress Note Date: 07/15/18 This is follow-up visit for this patient with a history of severe and chronic neck pain secondary to cervical degenerative disc diseases , cervical spondylosis with facet arthropathy, We have done interventional pain procedures cervical epidural steroid injections 2, patient had no benefit from it, and recently we have done the frequency ablation of the left side medial branch block cervical area C3/C4/C5 , patient had significant decrease in his pain level , he reported that his pain for more than 80%, is very satisfied with the result of that treatment Patient denies any motor or sensory deficit , patient denies any fever or night sweats, denies any change in the bowel movements or urination Physical Examinations : 1-Constitutional : Cooperative , not in acute distress . 2-HEENT : nech ; supple , no Lymphadenopathy , no Thyromegaly , normal thyroid size . eyes : no ptosis , no icterus, no photophobia . 3- neurologic: Cranial nerve II to XII intact , no focal neurological deffecit . 4- Psychatric: alert , oriented X 3 , appropriate affect , intact judgment and insight . 5- Lymphatic : no Lymphadenopathy . 6- Musculoskeltal : exams of the cervical spine = motor strength normal bilateral upper extremities facet loading test cervical area positive. exams of the Lumber spine =motor strength lower extremities ,thigh and legs .5/5 Assessment and plan = Chronic low back pain secondary to cervical degenerative disc disease , cervical spondylosis with facet arthropathy without myelopathy Patient had excellent pain relief after the radiofrequency ablation of the left side C3/C4/C5 under fluoroscopy guidance. He will follow up with the pain clinic when necessary PQRS Measure Charge Sheet Measure #130: Documentation of Current Meds in Medical Chart: Patient's medications documented in chart Measure #226: Tobacco Use: Screen & Cessation Intervention: Pt screened for tobacco use AND intervention given Measure #111: Pneumonia Vaccination: Pneumococcal vaccine NOT administered or previously given Measure #47: Advance Care Plan: Advance care planning discussed & documented, pt chose/unable to give Measure #412: Opioid Treatment Agreement: No documentation of signed opioid treatment agreement Measure #408: Opioid Therapy Follow-up Evaluation: Patient had NO f/u eval minimum every 3 months during opioid therapy Measure #317: Preventitive Care & Scrn High Bld Press & F/U: Blood pressure elevated 159/86 and patient will follow up with her primary care Measure #128: Body Mass Index (BMI) Screening & Follow-up: BMI documented ABOVE normal parameters - f/u documented Measure #131: Pain Assessment & Follow-up: Pain positive & plan documented, Follow-up scheduled Measure #431: Unhealthy Alcohol Use Preventative Care & Scrn: Patient not identified as an unhealthy alcohol user PQRS Narrative: - Controlled Substance Measures Is patient prescribed a controlled substance at discharge?: No When asked, does pt state using other controlled substances?: No If prescribed controlled substance>3 days was MAPS reviewed?: No If Rx opioid, was Start Talking consent form obtained?: No If opioid is for acute pain is fill amount 7 days or less?: No Was information provided regarding opioid addiction?: No Objective - Vital Signs Vital signs: Vital Signs Temp Pulse 75 07/15/18 14:36 Resp 16 07/15/18 14:36 BP 159/86 07/15/18 14:36 Pulse Ox
== END ==
LOC: PNWHC3 14:02
PROVIDERS: ATTEND Specialist
DX: G89.29 Other chronic pain (principal); M50.30 Other cervical disc degeneration, unspecified cervical region; M47.812 Spondylosis without myelopathy or radiculopathy, cervical region; M46.96 Unspecified inflammatory spondylopathy, lumbar region; Z79.891 Long term (current) use of opiate analgesic
CPT/HCPCS: 99211

== ENCOUNTER → 2018-10-14 | Outpatient (CLI) | payer BC ==
--- NOTE | 2018-10-14 10:36 | XR ---
EXAMINATION TYPE: XR lumbar spine 2 or 3V DATE OF EXAM: 10/14/2018 CLINICAL HISTORY: Chronic low back pain. TECHNIQUE: Frontal and lateral images of the lumbar spine are obtained. COMPARISON: None FINDINGS: There are 5 lumbar type vertebral bodies identified. The lumbar spine shows satisfactory alignment without evidence of acute fracture or dislocation. Vertebral body heights are within normal limits. There is mild multilevel disc space narrowing with relative sparing of L4-L5 level. There is mild multilevel anterior and lateral spurring. Vascular calcification overlying abdominal aorta is n oted. IMPRESSION: As above.
== END | disposition home or self-care (01) ==
LOC: RADXRMAIN 09:52
PROVIDERS: ATTEND Physician Assistant
DX: M48.061 Spinal stenosis, lumbar region without neurogenic claudication (principal)
CPT/HCPCS: 72100

== ENCOUNTER → 2018-11-11 | Outpatient (CLI) | payer BC ==
--- NOTE | 2018-11-11 10:29 | XR ---
EXAMINATION TYPE: XR clavicle RT DATE OF EXAM: 11/11/2018 COMPARISON: None HISTORY: Pain right shoulder TECHNIQUE: 2 view right clavicle FINDINGS: Acromioclavicular joint hypertrophy is present with superior and inferior spurring. No acut e fractures are evident. IMPRESSION: 1. Intact left clavicle. 2. Degenerative acromioclavicular joint changes.
== END | disposition home or self-care (01) ==
LOC: RADXRMAIN 09:57
PROVIDERS: ATTEND Physician Assistant
DX: M19.011 Primary osteoarthritis, right shoulder (principal)

== ENCOUNTER → 2020-02-17 | Outpatient (CLI) | payer BC ==
--- NOTE | 2020-02-17 10:17 | XR ---
2 view abdomen HISTORY: Abnormal bowel sounds 2 views of the abdomen on 3 images There are probable vascular calcifications within the pelvis. No bowel obstruction or pneumoperitoneu m is evident. Lung bases are clear. Degenerative disc changes are present in the visualized spine. IMPRESSION: Nonobstructive bowel gas pattern.
== END | disposition home or self-care (01) ==
LOC: RADXRMAIN 09:28
PROVIDERS: ATTEND Family Medicine
DX: R19.15 Other abnormal bowel sounds (principal)
CPT/HCPCS: 74019

== ENCOUNTER → 2020-03-13 | Outpatient (CLI) | payer BC ==
[2020-03-13 21:17] LABS: African American GFR (CKD) 91.8 (60.0-200.0); Anion Gap 8.8 mmol/L (4.00-12.00); Calcium 9.6 mg/dL (8.7-10.3); Carbon Dioxide 24.2 mmol/L (21.6-31.8); Magnesium 1.9 mg/dL (1.5-2.4); Non-African American GFR(CKD) 79.2 (60.0-200.0)
== END | disposition home or self-care (01) ==
LOC: LABWHC1 10:27
PROVIDERS: ATTEND Nurse Practitioner
DX: I10 Essential (primary) hypertension (principal); R00.2 Palpitations
CPT/HCPCS: 36415; 80048; 83735; 84439; 84443

== ENCOUNTER 2021-08-19 07:40 | Inpatient (IN) | payer MEDICARE, BC ==
[2021-08-19] MEDS ORDERED: LORazepam 2 MG/ML INJ IM STA (08:00)
[2021-08-19] MEDS ORDERED: LORazepam 2 MG/ML INJ IV STA ×3 (08:04→11:52)
--- NOTE | 2021-08-19 08:13 | ED ---
General Adult HPI - General Chief complaint: Altered Mental Status Stated complaint: AMS Time Seen by Provider: 08/19/21 07:50 Source: patient, EMS Mode of arrival: EMS Limitations: altered mental status - History of Present Illness Initial comments: Dictation was produced using [employer] dictation software. please excuse any grammatical, word or spelling errors. Chief Complaint: 65-year-old male with alleged history of bipolar disease, diabetes and also arthritis presents to the ER for altered mental status. History of Present Illness: 65-year-old male is brought in by EMS. EMS was called by . Most of history of present illness was obtained from nurse was a report from EMS received report from . According to nurse patient was brought here to the emergency department for altered mental status. EMS notified at my nursing staff that patient has history of bipolar disease. Patient is agitated. He believes that he is here because we made him come here. Patient has any medical complaints. Cardiac EMS patient's been agitated en route to the emergency department. The ROS documented in this emergency department record has been reviewed and confirmed by me. Those systems with pertinent positive or negative responses have been documented in the HPI. All other systems are other negative and/or noncontributory. PHYSICAL EXAM: General Impression: Alert and oriented x3, agitated, moving all extremities, amb ulatory around the room, aggressive posturing HEENT: Normocephalic atraumatic, extra-ocular movements intact, pupils equal and reactive to light bilaterally, mucous membranes moist. Cardiovascular: Heart regular rate and rhythm Chest: Able to complete full sentences, no retractions, no tachypnea Abdomen: abdomen soft, non-tender, non-distended, no organomegaly Musculoskeletal: Pulses present and equal in all extremities, no peripheral edema Motor: no focal deficits noted Neurological: CN II-XII grossly intact, no focal motor or sensory deficits noted Skin: Intact with no visualized rashes Psych: Agitated ED course: 65-year-old male presents emergency department for altered mental status. We are told the patient has history of psychiatric disease. Patient has history of diabetes and osteoarthritis and sleep apnea according to electronic medical record. Chart review shows that patient has had multiple notes for pain issues. There is a discharge summary from 2014 showing the patient has history of bipolar depression. The time was escorted to the emergency room for suicidal ideation. He is brought here escorted by police. Laboratory evaluation obtained. Leukocytosis of 26.5. Coag panel is negative. Metabolic panel is within acceptable limits except for his magnesium is 1.1. Patient treated with parenteral magnesium. Troponin is 0.020. Computed tomography scan of brain is unremarkable. Patient had aggressive posturing. Is not having any focal neurologic deficits otherwise. He is ambulatory in threatening our staff and myself. Simply more of an acute psychotic reaction versus acute delirium as opposed to CVA. No exactly when his symptoms started. Patient given sedating medications. Admitted to Dr. Saucedo. Pending urine studies. Psychiatry and infectious disease consulted. Patient reevaluated at 1:15 PM resting comfortably. EKG interpretation: Ventricular rate 116, sinus tachycardia,. 149, care is 160, QTc 457. No AK prolongation, no QTC prolongation, no ST or T-wave changes noted. EKG compared to 09/09/2016 showing no changes. Overall, this EKG is unremarkable - Related Data Home Medications Medication Instructions Recorded Confirmed QUEtiapine [SEROquel] 400 mg PO HS 12/03/15 08/19/21 clomiPRAMINE HCL 225 mg PO DAILY 12/03/15 08/19/21 lamoTRIgine [LaMICtal] 100 mg PO DAILY 09/08/16 08/19/21 Ibuprofen [Motrin] 800 mg PO Q8H PRN 01/13/18 08/19/21 Budesonide/Formoterol Fumarate 2 puff INHALATION RT-BID 08/19/21 08/19/21 [Symbicort 160-4.5 Mcg Inhaler] Empagliflozin [Jardiance] 25 mg PO DAILY 08/19/21 08/19/21 Eszopiclone [Lunesta] 3 mg PO HS 08/19/21 08/19/21 metFORMIN HCL ER [Glucophage XR] 500 mg PO BID 08/19/21 08/19/21 Allergies Allergy/AdvReac Type Severity Reaction Status Date / Time No Known Allergies Allergy Verified 08/19/21 09:58 Review of Systems ROS Statement: Those systems with pertinent positive or pertinent negative responses have been documented in the HPI. ROS Other: All systems not noted in ROS Statement are negative. Past Medical History Past Medical History: Diabetes Mellitus, Osteoarthritis (OA), Sleep Apnea/CPAP/BIPAP Additional Past Medical History / Comment(s): neck pain numbness left shoulder, hx rapid heart rate,,no cpap,DIABETIC- DIET CONTROLLED History of Any Multi-Drug Resistant Organisms: None Reported Past Surgical History: Cardiac Ablation Additional Past Surgical History / Comment(s): colonoscopy, PAIN CLINIC INJECTION Past Anesthesia/Blood Transfusion Reactions: No Reported Reaction Past Psychological History: Bipolar Smoking Status: Current every day smoker Past Alcohol Use History: Occasional Past Drug Use History: Marijuana - Past Family History Mother Family Medical History: No Reported History General Exam Limitations: altered mental status Course Vital Signs 08/19/21 08/19/21 08/19/21 07:43 08:05 08:18 Temperature 97.9 F Pulse Rate 116 H 97 Respiratory 18 18 Rate Blood Pressure 142/111 143/79 149/95 O2 Sat by Pulse 99 96 Oximetry 08/19/21 08/19/21 08/19/21 08:48 10:16 11:01 Temperature Pulse Rate 106 H 103 H 0 L Respiratory 18 18 18 Rate Blood Pressure 158/102 183/90 163/64 O2 Sat by Pulse 98 96 98 Oximetry 08/19/21 08/19/21 11:19 12:06 Temperature Pulse Rate 75 118 H Respiratory 18 18 Rate Blood Pressure 96/47 139/85 O2 Sat by Pulse 97 98 Oximetry Medical Decision Making - Lab Data Result diagrams: 08/19/21 07:55 08/19/21 07:55 Lab Results 08/19/21 08/19/21 08/19/21 Range/Units 07:55 07:55 07:55 WBC 26.5 H (3.8-10.6) k/uL RBC 5.19 (4.30-5.90) m/uL Hgb 16.4 (13.0-17.5) gm/dL Hct 47.1 (39.0-53.0) % MCV 90.8 (80.0-100.0) fL MCH 31.6 (25.0-35.0) pg MCHC 34.8 (31.0-37.0) g/dL RDW 12.4 (11.5-15.5) % Plt Count 420 (150-450) k/uL MPV 7.1 Neutrophils % 86 % Lymphocytes % 7 % Monocytes % 5 % Eosinophils % 1 % Basophils % 1 % Neutrophils # 22.8 H (1.3-7.7) k/uL Lymphocytes # 1.8 (1.0-4.8) k/uL Monocytes # 1.4 H (0-1.0) k/uL Eosinophils # 0.2 (0-0.7) k/uL Basophils # 0.2 (0-0.2) k/uL PT 11.3 (9.0-12.0) sec INR 1.0 (<1.2) APTT 22.2 (22.0-30.0) sec Sodium 135 L (137-145) mmol/L Potassium 3.7 (3.5-5.1) mmol/L Chloride 92 L (98-107) mmol/L Carbon Dioxide 27 (22-30) mmol/L Anion Gap 16 mmol/L BUN 38 H (9-20) mg/dL Creatinine 1.08 (0.66-1.25) mg/dL Est GFR (CKD-EPI)AfAm 83 (>60 ml/min/1.73 sqM) Est GFR (CKD-EPI)NonAf 72 (>60 ml/min/1.73 sqM) Glucose 365 H (74-99) mg/dL Calcium 10.3 H (8.4-10.2) mg/dL Magnesium 1.1 L (1.6-2.3) mg/dL Total Bilirubin 0.9 (0.2-1.3) mg/dL AST 34 (17-59) U/L ALT 33 (4-49) U/L Alkaline Phosphatase 99 (38-126) U/L Ammonia (<30) umol/L Troponin I (0.000-0.034) ng/mL Total Protein 8.4 H (6.3-8.2) g/dL Albumin 4.9 (3.5-5.0) g/dL 08/19/21 08/19/21 Range/Units 07:55 07:55 WBC (3.8-10.6) k/uL RBC (4.30-5.90) m/uL Hgb (13.0-17.5) gm/dL Hct (39.0-53.0) % MCV (80.0-100.0) fL MCH (25.0-35.0) pg MCHC (31.0-37.0) g/dL RDW (11.5-15.5) % Plt Count (150-450) k/uL MPV Neutrophils % % Lymphocytes % % Monocytes % % Eosinophils % % Basophils % % Neutrophils # (1.3-7.7) k/uL Lymphocytes # (1.0-4.8) k/uL Monocytes # (0-1.0) k/uL Eosinophils # (0-0.7) k/uL Basophils # (0-0.2) k/uL PT (9.0-12.0) sec INR (<1.2) APTT (22.0-30.0) sec Sodium (137-145) mmol/L Potassium (3.5-5.1) mmol/L Chloride (98-107) mmol/L Carbon Dioxide (22-30) mmol/L Anion Gap mmol/L BUN (9-20) mg/dL Creatinine (0.66-1.25) mg/dL Est GFR (CKD-EPI)AfAm (>60 ml/min/1.73 sqM) Est GFR (CKD-EPI)NonAf (>60 ml/min/1.73 sqM) Glucose (74-99) mg/dL Calcium (8.4-10.2) mg/dL Magnesium (1.6-2.3) mg/dL Total Bilirubin (0.2-1.3) mg/dL AST (17-59) U/L ALT (4-49) U/L Alkaline Phosphatase (38-126) U/L Ammonia <9 (<30) umol/L Troponin I 0.020 (0.000-0.034) ng/mL Total Protein (6.3-8.2) g/dL Albumin (3.5-5.0) g/dL Disposition Clinical Impression: Acute delirium Disposition: ADMITTED IP TO THIS [facility] Condition: Serious Referrals: Tom Vasquez DO [Primary Care Provider] - 1-2 days
[2021-08-19 08:21] LABS: Basophils # (A) 0.2 k/uL (0-0.2); Basophils % (A) 1 %; Eosinophils # (A) 0.2 k/uL (0-0.7); Eosinophils % (A) 1 %; HCT 47.1 % (39.0-53.0); HGB 16.4 gm/dL (13.0-17.5); Lymphocytes # (A) 1.8 k/uL (1.0-4.8); Lymphocytes % (A) 7 %; MCH 31.6 pg (25.0-35.0); MCHC 34.8 g/dL (31.0-37.0); MCV 90.8 fL (80.0-100.0); Mean Platelet Volume 7.1; Monocytes # (A) 1.4 k/uL (0-1.0); Monocytes % (A) 5 %; Neutrophils # (A) 22.8 k/uL (1.3-7.7); Neutrophils % (A) 86 %; Platelet Count 420 k/uL (150-450); RBC 5.19 m/uL (4.30-5.90); RDW 12.4 % (11.5-15.5); WBC 26.5 k/uL (3.8-10.6)
[2021-08-19 08:36] LABS: Albumin 4.9 g/dL (3.5-5.0); Calcium 10.3 mg/dL (8.4-10.2); Magnesium 1.1 mg/dL (1.6-2.3); Potassium 3.7 mmol/L (3.5-5.1); Total Bilirubin 0.9 mg/dL (0.2-1.3); Total Protein 8.4 g/dL (6.3-8.2)
[2021-08-19] MEDS ORDERED: OLANZapine 10 MG VIAL IM STA (09:58)
[2021-08-19 10:29] LABS: Partial Thromboplastin Time 22.2 sec (22.0-30.0); Prothrombin Time 11.3 sec (9.0-12.0)
--- NOTE | 2021-08-19 12:58 | CT ---
EXAMINATION TYPE: CT brain wo con DATE OF EXAM: 08/19/2021 COMPARISON: None HISTORY: AMS since Thursday night CT DLP: 1129.[address] of the brain was performed. The ventricles, basal cisterns and sulci overlying the cerebral convexities demonstrate mild enlargem ent. Small area of remote insult posterior right parietal lobe. There is no evidence for intracranial hemorrhage or sulcal effacement. There is decreased attenuation about the periventricular white matter and deep white matter of both c erebral hemispheres, compatible with chronic small vessel ischemia. Differential diagnosis does inclu de demyelination. No mass effects are seen.No midline shift. Osseous calvarium is intact. If symptoms persist consider MRI. IMPRESSION: 1. Age related atrophic and chronic small vessel ischemic change without acute intracranial process s een at this time.
[2021-08-19] MEDS ORDERED: PIPERACILLIN-TAZOBACTAM 3.375 GM in SODIUM CHLORIDE 0.9% 100 ML IVPB STA (13:06)
[2021-08-19] MEDS ORDERED: VANCOMYCIN IV PER PHARMACY 1 EACH MISC MISCELLANE PRN (13:06)
[2021-08-19] MEDS ORDERED: ACETAMINOPHEN TAB 325 MG TAB PO PRN (13:08)
[2021-08-19] MEDS ORDERED: NALOXONE 0.4 MG/ML 1 ML VIAL IV PRN (13:08)
[2021-08-19] MEDS ORDERED: VANCOMYCIN 1,250 MG in SODIUM CHLORIDE 0.9% 250 ML IVPB STA (13:10)
[2021-08-19] MEDS: SODIUM CHLORIDE 0.9% 1,000 ML IV SCH ×2 (14:11→22:14)
[2021-08-19] MEDS: MAGNESIUM SULFATE-D5W PMX 1 GM in DEXTROSE/WATER 1 100ML.BAG IVPB SCH ×4 (14:54→23:52)
--- NOTE | 2021-08-19 15:10 | XR ---
EXAMINATION TYPE: XR chest 1V portable DATE OF EXAM: 08/19/2021 HISTORY: Shortness of breath. COMPARISON: 12/03/2015 TECHNIQUE: Single view of the chest is submitted. FINDINGS: Demonstrated are scattered senescent parenchymal change. There is peribronchial cuffing which could be on the basis of a bronchitis. Correlate clinically. No evidence for focal pneumonia at this time. The heart is stable. Hilar and mediastinal structures are within normal limits. Degenerative changes are seen of the dorsal spine. IMPRESSION: 1. There is peribronchial cuffing which could be on the basis of a bronchitis. Correlate clinically. No evidence for focal pneumonia at this time.
[2021-08-19 17:43] LABS: Appearance,Urine Clear (Clear); Bilirubin,Urine Negative (Negative); Blood,Urine Trace (Negative); Color,Urine Yellow; Glucose,Urine (UA) 4+ (Negative); Hyaline Casts,Urine 1 /lpf (0-2); Ketones,Urine 1+ (Negative); Leukocyte Esterase,Urine Negative (Negative); Mucus,Urine Rare /hpf; Nitrite,Urine Negative (Negative); PH, Urine 5.5 (5.0-8.0); Protein,Urine 1+ (Negative); RBC,Urine 1 /hpf (0-5); Specific Gravity,Urine 1.033 (1.001-1.035); Urobilinogen,Urine <2.0 mg/dL (<2.0); WBC,Urine 1 /hpf (0-5)
[2021-08-19 17:53] LABS: Barbiturate Screen,Urine Not Detected (NotDetected); Cocaine Screen,Urine Not Detected (NotDetected); Methadone Screen, Urine Not Detected (NotDetected); Opiate Screen,Urine Not Detected (NotDetected); Oxycodone Screen, Urine Not Detected (NotDetected); Phencyclidine Screen,Urine Not Detected (NotDetected); Tricyclic Antidepressant,Urine Not Detected (NotDetected); Urn Cannabinoid Scrn Detected (NotDetected)
[2021-08-19 17:54] LABS: Amphetamine Screen,Urine Not Detected (NotDetected); Benzodiazepines Screen,Urine Detected (NotDetected)
[2021-08-19 20:32] LABS: Glucose,Whole Blood 324 mg/dL (75-99)
[2021-08-19] MEDS ORDERED: QUEtiapine 400 MG TAB PO SCH (21:00)
[2021-08-19] MEDS ORDERED: TEMAZEPAM 30 MG CAP PO SCH (21:00)
--- NOTE | 2021-08-19 21:54 | P.HPIM ---
History of Present Illness H&P Date: 08/19/21 Chief Complaint: Altered mental status Patient is a 64-year-old male with a known history of diabetes type 2 [id number]-[id number], osteoarthritis, obstructive sleep apnea not on CPAP at home, COPD, chronic neck pain and shoulder pain, bipolar disorder and currently everyday smoker and occasional marijuana use was brought to the hospital by EMS due to altered mental status. Patient's called EMS. Apparently patient has not been confused and not talking since Thursday. He also did have episodes of nausea and vomiting. Patient usually awake alert oriented x3. He does have a history of bipolar disorder. Patient has not been tracking and mood since admission. Otherwise patient is agitated and walks in the hallway. Patient has been afebrile. No cough or sputum production. Chest x-ray showed there is very bronchial cuffing which could be on the basis of the bronchitis. Correlate clinically. No evidence for focal pneumonia at this time. Patient was given a dose of vancomycin and Zosyn in the ER. On admission blood pressure was 142/111, heart rate 116 and pulse ox 91% on room air. Laboratory showed WBC 26.5 hemoglobin 16.4 platelets 429 neutrophils 22.8 Sodium 135 potassium 3.7 chloride 92 bicarb is 27 BUN 38 and creatinine 1.08 and blood sugar was 365 calcium 10 point Urinalysis is negative for infection UDS is positive for benzodiazepines and marijuana CT head showed age-related atrophic and chronic small vessel ischemic change without acute intracranial process seen at this time. EKG showed sinus tachycardia. Review of Systems Review of systems could not be obtained from the patient. Past Medical History Past Medical History: Diabetes Mellitus, Osteoarthritis (OA), Sleep Apnea/CPAP/BIPAP Additional Past Medical History / Comment(s): neck pain numbness left shoulder, hx rapid heart rate,,no cpap,DIABETIC- DIET CONTROLLED History of Any Multi-Drug Resistant Organisms: None Reported Past Surgical History: Cardiac Ablation Additional Past Surgical History / Comment(s): colonoscopy, PAIN CLINIC INJECTION Past Anesthesia/Blood Transfusion Reactions: No Reported Reaction Past Psychological History: Bipolar Smoking Status: Current every day smoker Past Alcohol Use History: Occasional Past Drug Use History: Marijuana - Past Family History Mother Family Medical History: No Reported History Medications and Allergies Home Medications Medication Instructions Recorded Confirmed Type QUEtiapine [SEROquel] 400 mg PO HS 12/03/15 08/19/21 History clomiPRAMINE HCL 225 mg PO DAILY 12/03/15 08/19/21 History lamoTRIgine [LaMICtal] 100 mg PO DAILY 09/08/16 08/19/21 History Ibuprofen [Motrin] 800 mg PO Q8H PRN 01/13/18 08/19/21 History Budesonide/Formoterol Fumarate 2 puff INHALATION RT-BID 08/19/21 08/19/21 History [Symbicort 160-4.5 Mcg Inhaler] Empagliflozin [Jardiance] 25 mg PO DAILY 08/19/21 08/19/21 History Eszopiclone [Lunesta] 3 mg PO HS 08/19/21 08/19/21 History metFORMIN HCL ER [Glucophage XR] 500 mg PO BID 08/19/21 08/19/21 History Allergies Allergy/AdvReac Type Severity Reaction Status Date / Time No Known Allergies Allergy Verified 08/19/21 09:58 Physical Exam Vitals: Vital Signs Temp Pulse Pulse Resp BP BP Pulse Ox 08/19/21 19:42 97.4 F L 111 H 12 157/94 97 08/19/21 19:28 117 H 18 126/87 96 08/19/21 17:37 97.4 F L 113 H 18 174/98 99 08/19/21 16:15 71 18 141/91 98 08/19/21 13:57 123 H 18 140/100 97 08/19/21 12:06 118 H 18 139/85 98 08/19/21 11:19 75 18 96/47 97 08/19/21 11:01 0 L 18 163/64 98 08/19/21 10:16 103 H 18 183/90 96 08/19/21 08:48 106 H 18 158/102 98 08/19/21 08:18 97 18 149/95 96 08/19/21 08:05 143/79 08/19/21 07:43 97.9 F 116 H 18 142/111 99 Intake and Output 08/19/21 08/19/21 08/19/21 06:59 14:59 22:59 Other: Weight 72.575 kg PHYSICAL EXAMINATION: Patient is agitated and aggressive unable to follow verbal commands. HEENT: Normocephalic. Neck is supple. Pupils reactive. Nostrils clear. Oral cavity is moist. Neck no JVD, carotid bruits, or thyromegaly. CHEST EXAMINATION: Trachea is central. Symmetrical expansion. Lung ohara clear to auscultation and percussion. CARDIAC: Normal S1, S2 with no gallops. No murmurs ABDOMEN: Soft. Bowel sounds normal. No organomegaly. No abdominal bruits. Extremities: reveal no edema. No clubbing or cyanosis Neurologically awake, alert but unable to communicate. With well-coordinated movements. No gross focal deficits noted Skin: No rash or skin lesions. Psychiatric: Noncooperative. Could not be assessed at this time. Musculoskeletal: No joint swelling or deformity. Normal range of motion. Results CBC & Chem 7: 08/19/21 07:55 08/19/21 07:55 Labs: Abnormal Lab Results - Last 24 Hours (Table) 08/19/21 08/19/21 08/19/21 Range/Units 07:55 07:55 16:37 WBC 26.5 H (3.8-10.6) k/uL Neutrophils # 22.8 H (1.3-7.7) k/uL Monocytes # 1.4 H (0-1.0) k/uL Sodium 135 L (137-145) mmol/L Chloride 92 L (98-107) mmol/L BUN 38 H (9-20) mg/dL Glucose 365 H (74-99) mg/dL POC Glucose (mg/dL) (75-99) mg/dL Calcium 10.3 H (8.4-10.2) mg/dL Magnesium 1.1 L (1.6-2.3) mg/dL Total Protein 8.4 H (6.3-8.2) g/dL Urine Protein 1+ H (Negative) Urine Glucose (UA) 4+ H (Negative) Urine Ketones 1+ H (Negative) Urine Blood Trace H (Negative) Urine Mucus Rare H (None) /hpf U Benzodiazepines Scrn Detected H (NotDetected) U Marijuana (THC) Screen Detected H (NotDetected) 08/19/21 Range/Units 20:30 WBC (3.8-10.6) k/uL Neutrophils # (1.3-7.7) k/uL Monocytes # (0-1.0) k/uL Sodium (137-145) mmol/L Chloride (98-107) mmol/L BUN (9-20) mg/dL Glucose (74-99) mg/dL POC Glucose (mg/dL) 324 H (75-99) mg/dL Calcium (8.4-10.2) mg/dL Magnesium (1.6-2.3) mg/dL Total Protein (6.3-8.2) g/dL Urine Protein (Negative) Urine Glucose (UA) (Negative) Urine Ketones (Negative) Urine Blood (Negative) Urine Mucus (None) /hpf U Benzodiazepines Scrn (NotDetected) U Marijuana (THC) Screen (NotDetected) Thrombosis Risk Factor Assmnt - DVT/VTE Prophylaxis DVT/VTE Prophylaxis: Pharmacologic Prophylaxis ordered Assessment and Plan Assessment: Altered mental status rule out metabolic, toxic, infectious etiology. SIRS with significant leukocytosis and tachycardia. Chest x-ray showed peribronchial cuffing no evidence of pneumonia. UA negative for infection. Possible metabolic and toxic encephalopathy Hypovolemic hyponatremia Hyperglycemia with uncontrolled diabetes type 2 [id number] Severe hypomagnesemia Obstructive sleep apnea not on CPAP at home Bipolar disorder Currently everyday smoker COPD not in exacerbation UDS positive for benzodiazepines and marijuana DVT prophylaxis with heparin subcu Plan: Patient will be continued on IV hydration with normal saline and was given a dose of antibiotics in the form of vancomycin and Zosyn. Follow-up blood culture report and CBC. Patient does not have any neck stiffness or meningeal signs at this time. ID and psychiatry was consulted. Patient was given Ativan IV push due to agitation in the ER. Patient will be started insulin sliding scale for better blood sugar control. Continue with home medications per bipolar disorder. Continue to follow closely. Prognosis is guarded at this time. Time with Patient: Greater than 30
[2021-08-19] MEDS: lamoTRIgine 100 MG TAB PO SCH (22:13)
[2021-08-19] MEDS: metFORMIN 500 MG TAB PO SCH (22:13)
[2021-08-19] MEDS: INSULIN ASPART (NovoLOG) 100 UNIT/ML VIAL SQ SCH ×2 (22:13→22:18)
[2021-08-19] MEDS ORDERED: HALOPERIDOL LACTATE 5 MG/ML 1 ML VIAL IM PRN (23:21)
[2021-08-19] MEDS ORDERED: LORazepam 2 MG/ML INJ IV PRN (23:21)
[2021-08-20] MEDS: HEPARIN SODIUM,PORCINE/PF 5,000 UNIT/0.5 ML SYRINGE SQ SCH ×3 (01:15→15:49)
[2021-08-20] MEDS: MAGNESIUM SULFATE-D5W PMX 1 GM in DEXTROSE/WATER 1 100ML.BAG IVPB SCH ×2 (01:16→02:37)
[2021-08-20] MEDS: SODIUM CHLORIDE 0.9% 1,000 ML IV SCH ×3 (06:50→23:39)
[2021-08-20 07:08] LABS: Glucose,Whole Blood 244 mg/dL (75-99)
[2021-08-20] MEDS: INSULIN ASPART (NovoLOG) 100 UNIT/ML VIAL SQ SCH ×5 (07:14→21:55)
[2021-08-20] MEDS: VANCOMYCIN 1,250 MG in SODIUM CHLORIDE 0.9% 250 ML IVPB SCH (07:15)
[2021-08-20] MEDS: lamoTRIgine 100 MG TAB PO SCH (07:40)
[2021-08-20] MEDS: FAMOTIDINE 20 MG/2 ML VIAL IV SCH ×2 (07:40→21:55)
[2021-08-20] MEDS: metFORMIN 500 MG TAB PO SCH (07:40)
[2021-08-20] MEDS: NON FORMULARY DRUG (Empagliflozin [Jardiance] 25 MG Tablet) PO SCH (07:41)
[2021-08-20 09:00] LABS: HCT 46.1 % (39.6-50.0); HGB 15.4 g/dL (13.0-17.0); MCH 30.2 pg (27.0-32.0); MCHC 33.4 g/dL (32.0-37.0); MCV 90.4 fL (80.0-97.0); Mean Platelet Volume 9.3 fL (9.5-12.2); NRBC Per 100 WBC 0 /100 WBCS (0.0-0.0); Platelet Count 381 X 10*3/uL (140-440); RDW 12.8 % (11.5-14.5); WBC 22.75 X 10*3/uL (4.50-10.00)
[2021-08-20 09:11] LABS: African American GFR (CKD) 81.2 (60.0-200.0); Anion Gap 17.2 mmol/L (10.00-18.00); BUN/Creat Ratio 31.64 Ratio (12.00-20.00); Blood Urea Nitrogen 34.8 mg/dL (9.0-27.0); Calcium 9.6 mg/dL (8.7-10.3); Carbon Dioxide 22.8 mmol/L (20.0-27.5); Magnesium 3.6 mg/dL (1.5-2.4); Non-African American GFR(CKD) 70.1 (60.0-200.0); Potassium 3.7 mmol/L (3.5-5.5)
[2021-08-20] MEDS: SYMBICORT 160-4.5 MCG INHALER INHALATION SCH ×2 (09:25→20:26)
[2021-08-20 09:55] LABS: Basophils # (A) 0.06 X 10*3/uL (0.00-0.10); Basophils % (A) 0.3 %; Eosinophils # (A) 0.02 X 10*3/uL (0.04-0.35); Eosinophils % (A) 0.1 %; Immature Grans, Automated 0.4 %; Lymphocytes # (A) 3.76 X 10*3/uL (0.90-5.00); Lymphocytes % (A) 16.5 %; Monocytes # (A) 1.91 X 10*3/uL (0.20-1.00); Monocytes % (A) 8.4 %; Neutrophils % (A) 74.3 %
[2021-08-20] MEDS: TAMSULOSIN 0.4 MG CAP.ER.24H PO SCH (10:35)
[2021-08-20 11:25] LABS: Glucose,Whole Blood 236 mg/dL (75-99)
[2021-08-20] MEDS: IOPAMIDOL CONTRAST (ORAL USE) VIAL PO PRN ×2 (13:30→14:27)
--- NOTE | 2021-08-20 15:32 | CT ---
EXAMINATION TYPE: CT abdomen pelvis w con DATE OF EXAM: 08/20/2021 COMPARISON: None. HISTORY: Leukocytosis, vomiting. CT DLP: 1030.4 mGycm, Automated Exposure Control for Dose Reduction was Utilized. CONTRAST: CT scan of the abdomen and pelvis is performed with oral and with IV Contrast, patient injected with 100 mL of Isovue 370. FINDINGS: LUNG BASES: Tiny bilateral pleural effusions. Associated compressive atelectasis. LIVER/GB: Liver is diffusely low dense consistent with fatty infiltration. PANCREAS: Moderate generalized fat replaced atrophy. SPLEEN: No significant abnormality is seen. ADRENALS: No significant abnormality is seen. KIDNEYS: No significant abnormality is seen. BOWEL: Oral contrast reaches level of the proximal transverse colon. No suspicious small or large bow el dilatation. Normal contrast-filled appendix. Mildly dilated contrast filled distal esophagus raise s concern for dysmotility and/or reflux. Correlate clinically. PROSTATE/SEMINAL VESICLES: Normal-sized prostate. Occasional scattered left-sided pelvic phlebolith LYMPH NODES: Prominent 15 x 9 mm borderline enlarged peripancreatic lymph node axial image 23. No gre ater than 1cm abdominal or pelvic lymph nodes are appreciated. OSSEOUS STRUCTURES: Mild to moderate multilevel anterior and lateral spurring. Xzkt-tv-bojyumau joint space loss and spurring of both hips. Mild to moderate narrowing of both sacroiliac joints. OTHER: Moderate peripheral calcified plaque extends into branch vessels. Small fat-containing left in guinal hernia. IMPRESSION: No significant acute finding is seen to account for patient's clinical symptoms of leuko cytosis and vomiting. No bowel obstruction is present.
--- NOTE | 2021-08-20 16:29 | P.CN ---
Psychiatric Consult - . Consult date: 08/20/21 Consult:: 08/20/21 16:10 He was referred to psychiatric CL for his bipolar disorder. He was admitted to medical unit with multiple medical complaints diabetes type 2 [id number]-ifxksfvmu, 2osteoarthritis, 3obstructive sleep apnea not on CPAP at home, 4 COPD, 5. chronic neck pain and shoulder pain, 6. bipolar disorder and 7. nicotine dependence currently everyday smoker 8 cannabis use d occasional marijuana use I did not the opporunity of talking to his to corroborate his history. He was investigated for his complaint of nausa and volmiting. His altered mental status according to note consisted of "not confused" " not talking". He was not catatonic upon arrival but elective mutism may be prodromal phase of relapse o fhis bipolar disroder. I reviewed the updated medical notes. he was investigated for leuckocytosis and tachycardia. He was seen in person resting quietly in bed. I have an update from unit RN who noted that he had diffculty in onset of his sleep. He was uanble to articulate his distress . He greeted me appropriately and was fully alert and oriented. He helped himself from the inclined position to have me interviewed him briefly. He appeared to be lethargic but fully cohreent and lucid. He talked about misiing his psychotropic Rx for a few days : in face of hockey games with his friends. He was not able to name his Rx : medication profile as follows 1. clomipramine at high dosage of 225 mg (nausa is common side effect , tachycardia side effect can be common) 2. seroquel 400 mg qhs . (tachycardia can also occur when combined with clomiprimine) 3. lamotrigine 100 mg po bid He appeared to have longstanding history of bipolar disorder. I questioned whether clomipramine in the absence of ocd , would be contributing towards his altered mental status in terms of drug related delirium at the combination. Full mental status exam. not conducted. in terms of the patient's recent medical condition and on monitoring device. His affect was somewhat blunted, but cooperative and engaging with the interview. constricted range of affect. No psychotic symptoms of delusions no hallucinations . No flight of ideas or pressures of speech. He did not have any suicidal or homicidal ideation. Cog; oriented. aware of the surrondings, insight judgement deferred to be assessed. diagnosis: I agree that full medical investigation would be warrated but no brain imaging was found. No evidence of CVA. High dosage of clomipramine, seroquel may have created the clinical picture of depressive episode. I prefer to decrease the dosage of clomiprimine to 200 mg and seroquel to 300 mg po qhs while maintaining the dosage of lamogine. I will follow the patient with medical team. 08/20/21 16:22
[2021-08-20 16:48] LABS: Glucose,Whole Blood 183 mg/dL (75-99)
[2021-08-20 20:49] LABS: Glucose,Whole Blood 189 mg/dL (75-99)
[2021-08-20] MEDS: TEMAZEPAM 15 MG CAP PO SCH (21:54)
--- NOTE | 2021-08-21 00:05 | P.PN ---
Subjective Progress Note Date: 08/20/21 Patient is a 64-year-old male with a known history of diabetes type 2 [id number], osteoarthritis, obstructive sleep apnea not on CPAP at home, COPD, chronic neck pain and shoulder pain, bipolar disorder and currently everyday smoker and occasional marijuana use was brought to the hospital by EMS due to altered mental status. Patient's called EMS. Apparently patient has not been confused and not talking since Thursday. He also did have episodes of nausea and vomiting. Patient usually awake alert oriented x3. He does have a history of bipolar disorder. Patient has not been tracking and mood since admission. Otherwise patient is agitated and walks in the hallway. Patient has been afebrile. No cough or sputum production. Chest x-ray showed there is very bronchial cuffing which could be on the basis of the bronchitis. Correlate clinically. No evidence for focal pneumonia at this time. Patient was given a dose of vancomycin and Zosyn in the ER. On admission blood pressure was 142/111, heart rate 116 and pulse ox 91% on room air. Laboratory showed WBC 26.5 hemoglobin 16.4 platelets 429 neutrophils 22.8 Sodium 135 potassium 3.7 chloride 92 bicarb is 27 BUN 38 and creatinine 1.08 and blood sugar was 365 calcium 10 point Urinalysis is negative for infection UDS is positive for benzodiazepines and marijuana CT head showed age-related atrophic and chronic small vessel ischemic change without acute intracranial process seen at this time. EKG showed sinus tachycardia. 08/20/2021 Patient is seen in follow up today and lethargic but arousable. Per nursing staff, patient has not urinated since last night and retaining. Patient refusing lockwood catheter at this time. Ordered intermittent straight catheter as needed. Patient refusing. bar staff later reported to patient voiding and flomax was started. Patient continues with an elevated WBC and ID following. Patient is continued on IV antibiotics. Psychiatry consulted and pending. Patient denies chest pain or shortness of breath. Patient denies nausea or vomiting and states he is tolerating diet. CT abdomen pelvis ordered and pending. Review of systems: Patient is lethargic. All medications have been reviewed Active Medications Acetaminophen (Acetaminophen Tab 325 Mg Tab) 650 mg PO Q6HR PRN PRN Reason: Mild Pain or Fever > 100.5 Budesonide/Formoterol Fumarate (Symbicort 160-4.5 Mcg Inhaler) 2 puff INHALATION RT-BID [facility] Last Admin: 08/20/21 09:25 Dose: Not Given Documented by: Clomipramine HCl (Clomipramine 50 Mg Cap) 200 mg PO DAILY [facility] Last Admin: 08/20/21 07:40 Dose: 200 mg Documented by: Famotidine (Famotidine 20 Mg/2 Ml Vial) 20 mg IV Q12HR [facility] Last Admin: 08/20/21 07:40 Dose: 20 mg Documented by: Haloperidol Lactate (Haloperidol Lactate 5 Mg/Ml 1 Ml Vial) 5 mg IM Q6HR PRN PRN Reason: Agitation or Acute Psychosis Heparin Sodium (Porcine) (Heparin Sodium,Porcine/Pf 5,000 Unit/0.5 Ml Syringe) 5,000 unit SQ Q8HR [facility] Last Admin: 08/20/21 15:49 Dose: 5,000 unit Documented by: Sodium Chloride (Saline 0.9%) 1,000 mls @ 100 mls/hr IV .Q10H [facility] Last Admin: 08/20/21 07:45 Dose: 100 mls/hr Documented by: Vancomycin HCl 1,250 mg/ (Sodium Chloride) 250 mls @ 125 mls/hr IVPB Q16H [facility] Last Admin: 08/20/21 07:15 Dose: 125 mls/hr Documented by: Ibuprofen (Ibuprofen 800 Mg Tab) 800 mg PO Q8H PRN PRN Reason: Pain Insulin Aspart (Insulin Aspart (Novolog) 100 Unit/Ml Vial) 0 unit SQ ACHS [facility]; Protocol Last Admin: 08/20/21 11:42 Dose: Not Given Documented by: Lamotrigine (Lamotrigine 100 Mg Tab) 100 mg PO DAILY [facility] Last Admin: 08/20/21 07:40 Dose: 100 mg Documented by: Lorazepam (Lorazepam 2 Mg/Ml Inj) 1 mg IV Q2HR PRN PRN Reason: Anxiety Last Admin: 08/19/21 23:43 Dose: 1 mg Documented by: Naloxone HCl (Naloxone 0.4 Mg/Ml 1 Ml Vial) 0.2 mg IV Q2M PRN PRN Reason: Opioid Reversal Non-Formulary Medication (Empagliflozin [Jardiance]) 25 mg PO DAILY [facility] Last Admin: 08/20/21 07:41 Dose: Not Given Documented by: Quetiapine Fumarate (Quetiapine 400 Mg Tab) 400 mg PO HS [facility] Last Admin: 08/19/21 22:12 Dose: 400 mg Documented by: Tamsulosin HCl (Tamsulosin 0.4 Mg Cap.Er.24h) 0.4 mg PO PC-BRKFST [facility] Last Admin: 08/20/21 10:35 Dose: 0.4 mg Documented by: Temazepam (Temazepam 15 Mg Cap) 30 mg PO [facility] Physical exam: Patient is asleep but arousable. confused. follows commands, more cooperative. HEENT: Normocephalic. Neck is supple. Pupils reactive. Nostrils clear. Oral cavity is moist. Neck: no JVD, carotid bruits, or thyromegaly. CHEST EXAMINATION: Trachea is central. Symmetrical expansion. Lung ohara clear to auscultation and percussion. CARDIAC: Normal S1, S2 with no gallops. No murmurs ABDOMEN: Soft. Bowel sounds normal. No organomegaly. No abdominal bruits. Extremities: reveal no edema. No clubbing or cyanosis Neurologically awake, alert but confused at times. With well-coordinated movements. No gross focal deficits noted Skin: No rash or skin lesions. Psychiatric: cooperative. Could not be fully assessed at this time. Musculoskeletal: No joint swelling or deformity. Normal range of motion. Assessment: Altered mental status rule out metabolic, toxic, infectious etiology. SIRS with significant leukocytosis and tachycardia. Chest x-ray showed peribronchial cuffing no evidence of pneumonia. UA negative for infection. Possible metabolic and toxic encephalopathy Hypovolemic hyponatremia Hyperglycemia with uncontrolled diabetes type 2 [id number] Severe hypomagnesemia, now hypermagnesemia Obstructive sleep apnea not on CPAP at home Bipolar disorder Currently everyday smoker COPD not in exacerbation UDS positive for benzodiazepines and marijuana DVT prophylaxis with heparin subcu Plan: Patient will be continued on IV hydration with normal saline and maintained on IV antibiotics in the form of vancomycin and Zosyn. Cultures thus far are pending. ID following and ordered CT abdomen and pelvis. WBC continues to be elevated and will repeat am labs. . psychiatry was consulted. Continue Haldol as needed and appreciate psychiatry input and recommendations Continue sliding scale and accuchecks achs for better blood sugar control. Continue with home medications per bipolar disorder. Continue to follow closely. Prognosis is guarded at this time. The impression and plan of care has been dictated by nurse angela Avalos as directed. MD Makenna I have performed a history and examination and MDM of this patient, discussed the same with the dictator, and agree with the dictator's assessment and plan as written ,documented as a scribe. Based on total visit time, I have performed more than 50% of the visit. Objective - Vital Signs Vital signs: Vital Signs Temp 98.3 F 08/20/21 07:55 Pulse 119 H 08/20/21 07:55 Resp 12 08/19/21 19:42 BP 111/72 08/20/21 07:55 Pulse Ox 95 08/20/21 07:55 Intake & Output 08/19/21 08/20/21 08/20/21 18:59 06:59 18:59 Weight 72.575 kg 72.575 kg Other: Voiding Method Toilet - Labs CBC & Chem 7: 08/20/21 03:06 08/20/21 03:06 Labs: Abnormal Lab Results - Last 24 Hours (Table) 08/19/21 08/19/21 08/20/21 Range/Units 16:37 20:30 03:06 WBC (4.50-10.00) X 10*3/uL MPV (9.5-12.2) fL Chloride (96-109) mmol/L BUN (9.0-27.0) mg/dL BUN/Creatinine Ratio (12.00-20.00) Ratio Glucose (70-110) mg/dL POC Glucose (mg/dL) 324 H (75-99) mg/dL Hemoglobin A1c 7.6 H (0.0-6.0) % Magnesium (1.5-2.4) mg/dL Urine Protein 1+ H (Negative) Urine Glucose (UA) 4+ H (Negative) Urine Ketones 1+ H (Negative) Urine Blood Trace H (Negative) Urine Mucus Rare H (None) /hpf U Benzodiazepines Scrn Detected H (NotDetected) U Marijuana (THC) Screen Detected H (NotDetected) 08/20/21 08/20/21 08/20/21 Range/Units 03:06 03:06 07:06 WBC 22.75 H (4.50-10.00) X 10*3/uL MPV 9.3 L (9.5-12.2) fL Chloride 95 L (96-109) mmol/L BUN 34.8 H (9.0-27.0) mg/dL BUN/Creatinine Ratio 31.64 H (12.00-20.00) Ratio Glucose 289 H (70-110) mg/dL POC Glucose (mg/dL) 244 H (75-99) mg/dL Hemoglobin A1c (0.0-6.0) % Magnesium 3.6 H (1.5-2.4) mg/dL Urine Protein (Negative) Urine Glucose (UA) (Negative) Urine Ketones (Negative) Urine Blood (Negative) Urine Mucus (None) /hpf U Benzodiazepines Scrn (NotDetected) U Marijuana (THC) Screen (NotDetected)
--- NOTE | 2021-08-21 00:24 | P.CONS ---
History of Present Illness - Reason for Consult Consult date: 08/20/21 sirs Requesting physician: Arnulfo Mccartney - Chief Complaint mental status changes x 1 day - History of Present Illness History of present illness : Patient is 65-year-old male presenting to the ER yesterday morning for evaluation of mental status changes in this patient who did have a history of bipolar disorder apparently the patient was agitated and rude to the emergency department on arrival to the ER the patient was afebrile and no fever had gone subsequently patient was noticed to have elevated white count of 26.5 patient has received vancomycin and Zosyn subsequently vancomycin was continued and infectious disease was consulted for further management of antibiotic therapy patient remains to be afebrile patient is a breathing comfortably on room air,Patient denies having any chest pain or shortness of breath or cough did mention an episode of vomiting but no abdominal pain no diarrhea or constipation patient did have a CT of the brain which did not show any bleed chest x-ray bronchial cuffing which would be an result of bronchitis, and the patient did have a negative UA, patient currently denies any headache and he was admitted to [facility] Review of system: CONSTITUTIONAL: Positive for weakness denies fever. EYES: No complaint. ENT: No complaint. RESPIRATORY: Mild cough. CARDIOVASCULAR: No complaint. GENITOURINARY: No complaint. GASTROINTESTINAL: As per history of present illness. MUSCULOSKELETAL: No complaint. INTEGUMENTARY: No complaint. PSYCHOLOGIC: No complaint. ENDOCRINE: No complaint. NEUROLOGIC: As per history of present illness. Past medical history : Reviewed, documented below Past surgical history : Reviewed, documented below Social history: Reviewed, documented below Medications: Reviewed, as documented below EXAMINATION: Vital sigans= Reviewed and documented below GENERAL DESCRIPTION: Elderly male lying in bed, no distress. No tachypnea or accessory muscle of respiration use. HEENT: Shows Pallor , no scleral icterus. Oral mucous membrane is dry. NECK: Trachea central, no thyromegaly. LUNGS: Unlabored breathing. Decreased breath sound at bases. No wheeze or crackle. HEART: S1, S2, regular rate and rhythm. ABDOMEN: Soft, no tenderness , guarding or rigidity EXTREMITIES: No edema of feet. SKIN: No rash, no masses palpable. NEUROLOGICAL: The patient is awake, alert, oriented x3, mood and affect normal. 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, we will obtain a CT of abdomen pelvis to make sure no evidence of any intra-abdominal pathology Plan: 1-check a CT abdominal pelvis 2-discontinue vancomycin 3-start the patient on Unasyn 3 g every 6 hours while waiting for the work-up to be completed We will follow on clinical condition and cultures to further adjust medication if needed Thank you for this consultation we will follow the patient along with you Past Medical History Past Medical History: Diabetes Mellitus, Osteoarthritis (OA), Sleep Apnea/CPAP /BIPAP Additional Past Medical History / Comment(s): neck pain numbness left shoulder, hx rapid heart rate,,no cpap,DIABETIC- DIET CONTROLLED with metformin History of Any Multi-Drug Resistant Organisms: None Reported Past Surgical History: Cardiac Ablation Additional Past Surgical History / Comment(s): colonoscopy, PAIN CLINIC INJECTION Past Anesthesia/Blood Transfusion Reactions: No Reported Reaction Past Psychological History: Bipolar Smoking Status: Current every day smoker Past Alcohol Use History: Occasional Additional Past Alcohol Use History / Comment(s): .STARTED SMOKING AT AGE 14 SMOKES, 1PPD Past Drug Use History: Marijuana Additional Drug Use History / Comment(s): OCCASIONAL USE - Past Family History Mother Family Medical History: No Reported History Medications and Allergies Home Medications Medication Instructions Recorded Confirmed Type QUEtiapine [SEROquel] 400 mg PO HS 12/03/15 08/19/21 History clomiPRAMINE HCL 225 mg PO DAILY 12/03/15 08/19/21 History lamoTRIgine [LaMICtal] 100 mg PO DAILY 09/08/16 08/19/21 History Ibuprofen [Motrin] 800 mg PO Q8H PRN 01/13/18 08/19/21 History Budesonide/Formoterol Fumarate 2 puff INHALATION RT-BID 08/19/21 08/19/21 History [Symbicort 160-4.5 Mcg Inhaler] Empagliflozin [Jardiance] 25 mg PO DAILY 08/19/21 08/19/21 History Eszopiclone [Lunesta] 3 mg PO HS 08/19/21 08/19/21 History metFORMIN HCL ER [Glucophage XR] 500 mg PO BID 08/19/21 08/19/21 History Allergies Allergy/AdvReac Type Severity Reaction Status Date / Time No Known Allergies Allergy Verified 08/19/21 09:58 Physical Exam Vitals: Vital Signs Temp Pulse Pulse Resp BP BP Pulse Ox 08/20/21 07:55 98.3 F 119 H 111/72 95 08/20/21 07:51 119 H 08/19/21 19:42 97.4 F L 111 H 12 157/94 97 08/19/21 19:28 117 H 18 126/87 96 08/19/21 17:37 97.4 F L 113 H 18 174/98 99 08/19/21 16:15 71 18 141/91 98 08/19/21 13:57 123 H 18 140/100 97 08/19/21 12:06 118 H 18 139/85 98 Intake and Output 08/19/21 08/20/21 08/20/21 22:59 06:59 14:59 Output Total 400 Balance -400 Output: Urine 400 Other: Voiding Method Toilet Weight 72.575 kg Results CBC & Chem 7: 08/20/21 03:06 08/20/21 03:06 Labs: Abnormal Lab Results - Last 24 Hours (Table) 08/19/21 08/19/21 08/20/21 Range/Units 16:37 20:30 03:06 WBC (4.50-10.00) X 10*3/uL MPV (9.5-12.2) fL Immature Gran # (0.00-0.04) X 10*3/uL Neutrophils # (1.80-7.70) X 10*3/uL Monocytes # (0.20-1.00) X 10*3/uL Eosinophils # (0.04-0.35) X 10*3/uL Chloride (96-109) mmol/L BUN (9.0-27.0) mg/dL BUN/Creatinine Ratio (12.00-20.00) Ratio Glucose (70-110) mg/dL POC Glucose (mg/dL) 324 H (75-99) mg/dL Hemoglobin A1c 7.6 H (0.0-6.0) % Magnesium (1.5-2.4) mg/dL Urine Protein 1+ H (Negative) Urine Glucose (UA) 4+ H (Negative) Urine Ketones 1+ H (Negative) Urine Blood Trace H (Negative) Urine Mucus Rare H (None) /hpf U Benzodiazepines Scrn Detected H (NotDetected) U Marijuana (THC) Screen Detected H (NotDetected) 08/20/21 08/20/21 08/20/21 Range/Units 03:06 03:06 07:06 WBC 22.75 H (4.50-10.00) X 10*3/uL MPV 9.3 L (9.5-12.2) fL Immature Gran # 0.10 H (0.00-0.04) X 10*3/uL Neutrophils # 16.90 H (1.80-7.70) X 10*3/uL Monocytes # 1.91 H (0.20-1.00) X 10*3/uL Eosinophils # 0.02 L (0.04-0.35) X 10*3/uL Chloride 95 L (96-109) mmol/L BUN 34.8 H (9.0-27.0) mg/dL BUN/Creatinine Ratio 31.64 H (12.00-20.00) Ratio Glucose 289 H (70-110) mg/dL POC Glucose (mg/dL) 244 H (75-99) mg/dL Hemoglobin A1c (0.0-6.0) % Magnesium 3.6 H (1.5-2.4) mg/dL Urine Protein (Negative) Urine Glucose (UA) (Negative) Urine Ketones (Negative) Urine Blood (Negative) Urine Mucus (None) /hpf U Benzodiazepines Scrn (NotDetected) U Marijuana (THC) Screen (NotDetected) 08/20/21 Range/Units 11:24 WBC (4.50-10.00) X 10*3/uL MPV (9.5-12.2) fL Immature Gran # (0.00-0.04) X 10*3/uL Neutrophils # (1.80-7.70) X 10*3/uL Monocytes # (0.20-1.00) X 10*3/uL Eosinophils # (0.04-0.35) X 10*3/uL Chloride (96-109) mmol/L BUN (9.0-27.0) mg/dL BUN/Creatinine Ratio (12.00-20.00) Ratio Glucose (70-110) mg/dL POC Glucose (mg/dL) 236 H (75-99) mg/dL Hemoglobin A1c (0.0-6.0) % Magnesium (1.5-2.4) mg/dL Urine Protein (Negative) Urine Glucose (UA) (Negative) Urine Ketones (Negative) Urine Blood (Negative) Urine Mucus (None) /hpf U Benzodiazepines Scrn (NotDetected) U Marijuana (THC) Screen (NotDetected)
[2021-08-21] MEDS: HEPARIN SODIUM,PORCINE/PF 5,000 UNIT/0.5 ML SYRINGE SQ SCH ×3 (01:13→17:45)
[2021-08-21] MEDS: AMPICILLIN-SULBACTAM 3 GM in SODIUM CHLORIDE 0.9% 100 ML IVPB SCH ×4 (01:13→21:05)
[2021-08-21] MEDS: VANCOMYCIN 1,250 MG in SODIUM CHLORIDE 0.9% 250 ML IVPB SCH (01:50)
[2021-08-21 06:52] LABS: Glucose,Whole Blood 271 mg/dL (75-99)
[2021-08-21 06:55] LABS: African American GFR (CKD) >90 (>60 ml/min/1.73 sqM); Anion Gap 10 mmol/L; Blood Urea Nitrogen 16 mg/dL (9-20); Calcium 8.9 mg/dL (8.4-10.2); Carbon Dioxide 24 mmol/L (22-30); Chloride 100 mmol/L (98-107); Glucose 224 mg/dL (74-99); Non-African American GFR(CKD) >90 (>60 ml/min/1.73 sqM); Potassium 3.6 mmol/L (3.5-5.1); Sodium 134 mmol/L (137-145)
[2021-08-21] MEDS: IBUPROFEN 800 MG TAB PO PRN ×2 (07:17→21:18)
[2021-08-21 07:47] LABS: ALT 27 U/L (4-49); AST 30 U/L (17-59); Albumin 4.2 g/dL (3.5-5.0); Albumin/Globulin Ratio 1.4; Alkaline Phosphatase 108 U/L (38-126); Globulin 3.1 g/dL; Total Bilirubin 0.8 mg/dL (0.2-1.3); Total Protein 7.3 g/dL (6.3-8.2)
[2021-08-21 08:03] LABS: T4, Free (Free Thyroxine) 2.06 ng/dL (0.78-2.19)
[2021-08-21] MEDS: lamoTRIgine 100 MG TAB PO SCH (08:55)
[2021-08-21] MEDS: TAMSULOSIN 0.4 MG CAP.ER.24H PO SCH (08:55)
[2021-08-21] MEDS: INSULIN ASPART (NovoLOG) 100 UNIT/ML VIAL SQ SCH ×4 (08:57→21:21)
[2021-08-21] MEDS: FAMOTIDINE 20 MG/2 ML VIAL IV SCH (09:00)
[2021-08-21] MEDS: SYMBICORT 160-4.5 MCG INHALER INHALATION SCH ×2 (09:15→21:14)
[2021-08-21 09:40] LABS: C Reactive Protein 6.8 mg/dL (<1.0)
[2021-08-21] MEDS: NON FORMULARY DRUG (Empagliflozin [Jardiance] 25 MG Tablet) PO SCH (09:55)
[2021-08-21 10:32] LABS: Basophils # (A) 0.05 X 10*3/uL (0.00-0.10); Basophils % (A) 0.3 %; Eosinophils # (A) 0.02 X 10*3/uL (0.04-0.35); Eosinophils % (A) 0.1 %; HCT 44.8 % (39.6-50.0); HGB 15.3 g/dL (13.0-17.0); Immature Grans, Automated 0.4 %; Lymphocytes # (A) 2.08 X 10*3/uL (0.90-5.00); Lymphocytes % (A) 12.8 %; MCH 30.1 pg (27.0-32.0); MCHC 34.2 g/dL (32.0-37.0); Mean Platelet Volume 9.2 fL (9.5-12.2); Monocytes # (A) 1.32 X 10*3/uL (0.20-1.00); Monocytes % (A) 8.1 %; NRBC Per 100 WBC 0 /100 WBCS (0.0-0.0); Neutrophils # (A) 12.69 X 10*3/uL (1.80-7.70); Neutrophils % (A) 78.3 %; Platelet Count 338 X 10*3/uL (140-440); RBC 5.09 X 10*6/uL (4.40-5.60); RDW 11.9 % (11.5-14.5); WBC 16.23 X 10*3/uL (4.50-10.00)
[2021-08-21 11:33] LABS: Glucose,Whole Blood 200 mg/dL (75-99)
[2021-08-21 16:33] LABS: Glucose,Whole Blood 176 mg/dL (75-99)
[2021-08-21 20:27] LABS: Glucose,Whole Blood 239 mg/dL (75-99)
[2021-08-21] MEDS: TEMAZEPAM 15 MG CAP PO SCH (21:21)
[2021-08-21] MEDS: QUEtiapine 400 MG TAB PO SCH (21:21)
[2021-08-21] MEDS: FAMOTIDINE 20 MG TAB PO SCH (21:21)
--- NOTE | 2021-08-21 22:59 | P.PN ---
Subjective Progress Note Date: 08/21/21 Principal diagnosis: leukocytosis Patient is a 65-year-old male presented to the hospital with mental status changes some weakness and an episode of vomiting in this patient had noticed to have elevated white count On today's evaluation that is 08/21/2021, the patient had denies having any fever or any chills, the patient is breathing comfortably no chest pain shortness of breath or cough no abdominal pain no diarrhea Objective - Vital Signs Vital signs: Vital Signs Temp 98.5 F 08/21/21 07:27 Pulse 95 08/21/21 07:27 Resp 18 08/21/21 07:27 BP 187/91 08/21/21 07:27 Pulse Ox 96 08/21/21 02:00 Intake & Output 08/20/21 08/21/21 08/21/21 18:59 06:59 18:59 Output Total 400 Balance -400 Output: Urine 400 Other: Voiding Method Urinal Urinal Urinal # Voids 1 3 - Exam GENERAL DESCRIPTION: Elderly male lying in bed in no distress RESPIRATORY SYSTEM: Unlabored breathing , decreased breath sounds at bases HEART: S1 S2 regular rate and rhythm ,no loud murmurs ABDOMEN: Soft , no tenderness EXTREMITIES: No edema feet - Labs CBC & Chem 7: 08/21/21 06:26 08/21/21 06:26 Labs: Abnormal Lab Results - Last 24 Hours (Table) 08/20/21 08/20/21 08/21/21 Range/Units 16:47 20:49 06:26 WBC (4.50-10.00) X 10*3/uL MPV (9.5-12.2) fL Immature Gran # (0.00-0.04) X 10*3/uL Neutrophils # (1.80-7.70) X 10*3/uL Monocytes # (0.20-1.00) X 10*3/uL Eosinophils # (0.04-0.35) X 10*3/uL Sodium 134 L (137-145) mmol/L Glucose 224 H (74-99) mg/dL POC Glucose (mg/dL) 183 H 189 H (75-99) mg/dL C-Reactive Protein 6.8 H (<1.0) mg/dL TSH 0.107 L (0.465-4.680) mIU/L 08/21/21 08/21/21 08/21/21 Range/Units 06:26 06:50 11:31 WBC 16.23 H (4.50-10.00) X 10*3/uL MPV 9.2 L (9.5-12.2) fL Immature Gran # 0.07 H (0.00-0.04) X 10*3/uL Neutrophils # 12.69 H (1.80-7.70) X 10*3/uL Monocytes # 1.32 H (0.20-1.00) X 10*3/uL Eosinophils # 0.02 L (0.04-0.35) X 10*3/uL Sodium (137-145) mmol/L Glucose (74-99) mg/dL POC Glucose (mg/dL) 271 H 200 H (75-99) mg/dL C-Reactive Protein (<1.0) mg/dL TSH (0.465-4.680) mIU/L Microbiology - Last 24 Hours (Table) 08/19/21 13:50 Blood Culture - Preliminary Blood No Growth after 24 hours 08/19/21 13:35 Blood Culture - Preliminary Blood No Growth after 24 hours Assessment and Plan (1) SIRS (systemic inflammatory response syndrome) Current Visit: Yes Status: Acute Code(s): R65.10 - SIRS OF NON-INFECTIOUS ORIGIN W/O ACUTE ORGAN DYSFUNCTION SNOMED Code(s): 539156463 (2) Leukocytosis Current Visit: No Status: Acute Code(s): D72.829 - ELEVATED WHITE BLOOD CELL COUNT, UNSPECIFIED SNOMED Code(s): 841408439 Plan: 1patient presented to hospital with some mental status changes did have an episode of vomiting with elevated white count concern for possible abdominal source CT abdominal pelvis did not show any acute abnormality, patient to continue with the Unasyn while waiting for the culture to finalize white count i s trending down Time with Patient: Less than 30
[2021-08-21] MEDS: SODIUM CHLORIDE 0.9% 1,000 ML IV SCH (23:33)
--- NOTE | 2021-08-22 00:10 | P.PN ---
Subjective Progress Note Date: 08/22/21 Patient is a 64-year-old male with a known history of diabetes type 2 [id number]-vqzsguyix, osteoarthritis, obstructive sleep apnea not on CPAP at home, COPD, chronic neck pain and shoulder pain, bipolar disorder and currently everyday smoker and occasional marijuana use was brought to the hospital by EMS due to altered mental status. Patient's called EMS. Apparently patient has not been confused and not talking since Thursday. He also did have episodes of nausea and vomiting. Patient usually awake alert oriented x3. He does have a history of bipolar disorder. Patient has not been tracking and mood since admission. Otherwise patient is agitated and walks in the hallway. Patient has been afebrile. No cough or sputum production. Chest x-ray showed there is very bronchial cuffing which could be on the basis of the bronchitis. Correlate clinically. No evidence for focal pneumonia at this time. Patient was given a dose of vancomycin and Zosyn in the ER. On admission blood pressure was 142/111, heart rate 116 and pulse ox 91% on room air. Laboratory showed WBC 26.5 hemoglobin 16.4 platelets 429 neutrophils 22.8 Sodium 135 potassium 3.7 chloride 92 bicarb is 27 BUN 38 and creatinine 1.08 and blood sugar was 365 calcium 10 point Urinalysis is negative for infection UDS is positive for benzodiazepines and marijuana CT head showed age-related atrophic and chronic small vessel ischemic change without acute intracranial process seen at this time. EKG showed sinus tachycardia. 08/20/2021 Patient is seen in follow up today and lethargic but arousable. Per nursing staff, patient has not urinated since last night and retaining. Patient refusing lockwood catheter at this time. Ordered intermittent straight catheter as needed. Patient refusing. staff certified nurse midwife later reported to patient voiding and flomax was started. Patient continues with an elevated WBC and ID following. Patient is continued on IV antibiotics. Psychiatry consulted and pending. Patient denies chest pain or shortness of breath. Patient denies nausea or vomiting and states he is tolerating diet. CT abdomen pelvis ordered and pending. 08/21/2021 Patient is seen this morning with at the bedside. Patient mentation is much improved. Patient is now eating and tolerating diet with no further reports of nausea or vomiting. Patient does report to acid reflux issues that persists and states has been ongoing for quite some time. Will refer to GI outpatient. Patient was evaluated by psychiatry and home medications resumed. WBC trending down and continued on IV abx with ID following. CT abdomen was negative. Patient denies chest pain or shortness of breath. Patient is afebrile. Patient is voiding with no difficulties. All medications have been reviewed Active Medications Acetaminophen (Acetaminophen Tab 325 Mg Tab) 650 mg PO Q6HR PRN PRN Reason: Mild Pain or Fever > 100.5 Budesonide/Formoterol Fumarate (Symbicort 160-4.5 Mcg Inhaler) 2 puff INHALATION RT-BID [facility] Last Admin: 08/21/21 21:14 Dose: Not Given Documented by: Clomipramine HCl (Clomipramine 50 Mg Cap) 200 mg PO DAILY [facility] Last Admin: 08/21/21 09:01 Dose: 200 mg Documented by: Famotidine (Famotidine 20 Mg Tab) 20 mg PO Q12HR [facility] Last Admin: 08/21/21 21:21 Dose: 20 mg Documented by: Haloperidol Lactate (Haloperidol Lactate 5 Mg/Ml 1 Ml Vial) 5 mg IM Q6HR PRN PRN Reason: Agitation or Acute Psychosis Heparin Sodium (Porcine) (Heparin Sodium,Porcine/Pf 5,000 Unit/0.5 Ml Syringe) 5,000 unit SQ Q8HR [facility] Last Admin: 08/21/21 17:45 Dose: 5,000 unit Documented by: Sodium Chloride (Saline 0.9%) 1,000 mls @ 100 mls/hr IV .Q10H [facility] Last Admin: 08/21/21 23:33 Dose: Not Given Documented by: Ampicillin Sodium/Sulbactam (Sodium 3 gm/ Sodium Chloride) 100 mls @ 200 mls/hr IVPB Q6H [facility]; Protocol Last Admin: 08/21/21 21:05 Dose: 200 mls/hr Documented by: Ibuprofen (Ibuprofen 800 Mg Tab) 800 mg PO Q8H PRN PRN Reason: Pain Last Admin: 08/21/21 21:18 Dose: 800 mg Documented by: Insulin Aspart (Insulin Aspart (Novolog) 100 Unit/Ml Vial) 0 unit SQ ACHS [facility]; Protocol Last Admin: 08/21/21 21:21 Dose: 4 unit Documented by: Lamotrigine (Lamotrigine 100 Mg Tab) 100 mg PO DAILY [facility] Last Admin: 03/16/22 08:55 Dose: 100 mg Documented by: Lorazepam (Lorazepam 2 Mg/Ml Inj) 1 mg IV Q2HR PRN PRN Reason: Anxiety Last Admin: 08/19/21 23:43 Dose: 1 mg Documented by: Naloxone HCl (Naloxone 0.4 Mg/Ml 1 Ml Vial) 0.2 mg IV Q2M PRN PRN Reason: Opioid Reversal Non-Formulary Medication (Empagliflozin [Jardiance]) 25 mg PO DAILY [facility] Last Admin: 08/21/21 09:55 Dose: Not Given Documented by: Quetiapine Fumarate (Quetiapine 400 Mg Tab) 400 mg PO [facility] Last Admin: 08/21/21 21:21 Dose: 400 mg Documented by: Tamsulosin HCl (Tamsulosin 0.4 Mg Cap.Er.24h) 0.4 mg PO PC-BRKFST [facility] Last Admin: 08/21/21 08:55 Dose: 0.4 mg Documented by: Temazepam (Temazepam 15 Mg Cap) 30 mg PO [facility] Last Admin: 08/21/21 21:21 Dose: 30 mg Documented by: Physical exam: Patient is awake, alert and oriented x 3. thin built, appears older than stated age. HEENT: Normocephalic. Neck is supple. Pupils reactive. Nostrils clear. Oral cavity is moist. Neck: no JVD, carotid bruits, or thyromegaly. CHEST EXAMINATION: Trachea is central. Symmetrical expansion. Lung ohara clear to auscultation and percussion. CARDIAC: Normal S1, S2 with no gallops. No murmurs ABDOMEN: Soft. Bowel sounds normal. No organomegaly. No abdominal bruits. Extremities: reveal no edema. No clubbing or cyanosis Neurologically awake, alert x3. With well-coordinated movements. No gross focal deficits noted Skin: No rash or skin lesions. Psychiatric: cooperative. Musculoskeletal: No joint swelling or deformity. Normal range of motion. Assessment: Altered mental status rule out metabolic, toxic, infectious etiology. SIRS with significant leukocytosis and tachycardia. Chest x-ray showed peribronchial cuffing no evidence of pneumonia. UA negative for infection. Possible metabolic and toxic encephalopathy Hypovolemic hyponatremia secondary to vomiting Hyperglycemia with uncontrolled diabetes type 2 fci-sljpbxo-ggyxedked Severe hypomagnesemia, now hypermagnesemia Obstructive sleep apnea not on CPAP at home Bipolar disorder Currently everyday smoker COPD not in exacerbation UDS positive for benzodiazepines and marijuana DVT prophylaxis with heparin subcu Full code Plan: Patient will be continued on IV hydration with normal saline and maintained on IV antibiotics with ID following. cultures are negative. WBC trending down, repeat labs ordered. psychiatry following and resumed home medications. Mentation much improved Continue sliding scale and accuchecks achs for better blood sugar control. Continue to follow closely. Prognosis is guarded at this time. Possible discharge in 24 hours. The impression and plan of care has been dictated by Shonda Sumner, nurse practitioner as directed. MD Makenna I have performed a history and examination and MDM of this patient, discussed the same with the dictator, and agree with the dictator's assessment and plan as written ,documented as a scribe. Based on total visit time, I have performed more than 50% of the visit. Objective - Vital Signs Vital signs: Vital Signs Temp 98.5 F 08/21/21 07:27 Pulse 95 08/21/21 07:27 Resp 18 08/21/21 07:27 BP 187/91 08/21/21 07:27 Pulse Ox 96 08/21/21 02:00 Intake & Output 08/20/21 08/21/21 08/21/21 18:59 06:59 18:59 Output Total 400 Balance -400 Output: Urine 400 Other: Voiding Method Urinal Urinal # Voids 1 3 - Labs CBC & Chem 7: 08/21/21 06:26 08/21/21 06:26 Labs: Abnormal Lab Results - Last 24 Hours (Table) 08/20/21 08/20/21 08/20/21 Range/Units 03:06 11:24 16:47 Immature Gran # 0.10 H (0.00-0.04) X 10*3/uL Neutrophils # 16.90 H (1.80-7.70) X 10*3/uL Monocytes # 1.91 H (0.20-1.00) X 10*3/uL Eosinophils # 0.02 L (0.04-0.35) X 10*3/uL Sodium (137-145) mmol/L Glucose (74-99) mg/dL POC Glucose (mg/dL) 236 H 183 H (75-99) mg/dL TSH (0.465-4.680) mIU/L 08/20/21 08/21/21 08/21/21 Range/Units 20:49 06:26 06:50 Immature Gran # (0.00-0.04) X 10*3/uL Neutrophils # (1.80-7.70) X 10*3/uL Monocytes # (0.20-1.00) X 10*3/uL Eosinophils # (0.04-0.35) X 10*3/uL Sodium 134 L (137-145) mmol/L Glucose 224 H (74-99) mg/dL POC Glucose (mg/dL) 189 H 271 H (75-99) mg/dL TSH 0.107 L (0.465-4.680) mIU/L Microbiology - Last 24 Hours (Table) 08/19/21 13:50 Blood Culture - Preliminary Blood No Growth after 24 hours 08/19/21 13:35 Blood Culture - Preliminary Blood No Growth after 24 hours
[2021-08-22] MEDS: HEPARIN SODIUM,PORCINE/PF 5,000 UNIT/0.5 ML SYRINGE SQ SCH ×4 (01:20→20:40)
[2021-08-22] MEDS: AMPICILLIN-SULBACTAM 3 GM in SODIUM CHLORIDE 0.9% 100 ML IVPB SCH ×4 (01:20→18:08)
[2021-08-22 06:32] LABS: Basophils % (A) 0 %; Eosinophils # (A) 0.2 k/uL (0-0.7); Eosinophils % (A) 2 %; HCT 42.6 % (39.0-53.0); HGB 14.3 gm/dL (13.0-17.5); Lymphocytes # (A) 2.5 k/uL (1.0-4.8); Lymphocytes % (A) 24 %; MCH 30.6 pg (25.0-35.0); MCHC 33.6 g/dL (31.0-37.0); MCV 91.1 fL (80.0-100.0); Mean Platelet Volume 7.1; Monocytes # (A) 0.7 k/uL (0-1.0); Monocytes % (A) 7 %; Neutrophils # (A) 6.8 k/uL (1.3-7.7); Neutrophils % (A) 65 %; Platelet Count 327 k/uL (150-450); RBC 4.68 m/uL (4.30-5.90); RDW 11.9 % (11.5-15.5); WBC 10.4 k/uL (3.8-10.6)
[2021-08-22] MEDS: lamoTRIgine 100 MG TAB PO SCH (06:46)
[2021-08-22] MEDS: TAMSULOSIN 0.4 MG CAP.ER.24H PO SCH (06:46)
[2021-08-22] MEDS: FAMOTIDINE 20 MG TAB PO SCH ×2 (06:46→20:40)
[2021-08-22] MEDS: SODIUM CHLORIDE 0.9% 1,000 ML IV SCH ×2 (06:49→14:15)
[2021-08-22 06:50] LABS: African American GFR (CKD) >90 (>60 ml/min/1.73 sqM); Anion Gap 6 mmol/L; Blood Urea Nitrogen 13 mg/dL (9-20); Calcium 8.5 mg/dL (8.4-10.2); Carbon Dioxide 24 mmol/L (22-30); Chloride 105 mmol/L (98-107); Glucose 159 mg/dL (74-99); Non-African American GFR(CKD) >90 (>60 ml/min/1.73 sqM); Potassium 3.4 mmol/L (3.5-5.1); Sodium 135 mmol/L (137-145)
[2021-08-22] MEDS: NON FORMULARY DRUG (Empagliflozin [Jardiance] 25 MG Tablet) PO SCH (06:50)
[2021-08-22 06:58] LABS: Glucose,Whole Blood 157 mg/dL (75-99)
[2021-08-22] MEDS: INSULIN ASPART (NovoLOG) 100 UNIT/ML VIAL SQ SCH ×4 (06:58→20:41)
[2021-08-22] MEDS: SYMBICORT 160-4.5 MCG INHALER INHALATION SCH ×2 (08:46→19:03)
[2021-08-22] MEDS ORDERED: POTASSIUM CHLORIDE ER 20 MEQ TAB.ER PO STA (09:04)
--- NOTE | 2021-08-22 11:27 | CDI ---
Documentation Clarification Form Date: 08/22/2021 11:10:49 AM From: Park GarcíaVenturaLOVE torres, CCDS Admit Date: 08/19/2021 01:08:00 PM Patient Name: Rene Gonzalez Visit Number: [id number] Discharge Date: ATTENTION: The Clinical Documentation Specialists (CDI) and [facility] Coding Staff appreciate your assistance in clarifying documentation. Please respond to the clarification below the line at the bottom and electronically sign. The CDI & [facility] Coding staff will review the response and follow-up if needed. Please note: Queries are made part of the Legal Health Record. If you have any questions, please contact the author of this message via ITS. Dr. Therese Saucedo: The patient presented with the following clinical indicators: Altered mental status, Nausea & vomiting, agitation and leukocytosis. Per the 08/19 History & Physical, the 08/20 Infectious Disease Consult and subsequent Progress Notes: SIRS with significant leukocytosis & tachycardia is documented. Additional clarification regarding the etiology/cause of the clinical indicators is requested. History/Risk Factors per the 08/19 H/P: NIDDM II, Osteoarthritis, Obstructive Sleep Apnea, COPD, Chronic Neck pain & numbness, Chronic Shoulder pain, Rapid heart rate with previous cardiac ablation, Bipolar, Current Smoker. Clinical Indicators: Presented to the ED on 08/19 via EMS with altered mental status & agitation. No medical complaints. escorted to the ED for Suicidal ideation by the police, Leukocytosis 26.5. Admit with Acute delirium. 08/19 VS: T 97.9, P 116, R 18, BP 142/111, 183/90; PO 99 RA, BMI: 25.1 08/19 LAB: WBC 26.5, Neut 22.8, [place] 1.4; Na 135, Cl 92, BUN 38, Glucose 365, Calcium 10.3, Magnesium 1.1, total Protein 8.4 No Lactic Acid 08/19 UA: 1+ Protein, 4+ glucose, 1+ Ketones, Trace Blood. 08/19 Toxicology: Benzodiazepines, Marijuana 08/19 CT Brain: Age related atrophic & chronic small vessel ischemic change without intracranial process. 08/19 CXR: Peribronchial cuffing could be on the basis of a bronchitis. No evidence for focal pneumonia. 08/20 CT Abdomen/Pelvis: No acute finding to account for patient's clinical symptoms of leukocytosis & vomiting, no bowel obstruction. Treatment 08/19: Blood glucose monitoring, Insulin sliding scale, Menard Catheter, Blood culture, IV Ativan 2mg x2, IV Ativan 4 mg x1, IM Zyprexa, IV Zosyn/Tazobactam 200 mls/hr x1, IV Vancomycin 125 mls/hr x1, IV MagSulfate/Dextrose 100 mls/hr q1H, IV Na Cl 100 mls/hr q10H In your professional opinion, please clarify if these findings signify one of the following conditions: [ ] Sepsis POA [ ] Sepsis, Not POA [ ] SIRS, without underlying infectious process [ ] Other, please specify [ ] Unable to determine (Template Last Reviewed: July 2020) SIRS, without underlying infectious process MTDD
--- NOTE | 2021-08-22 11:33 | CDI ---
Documentation Clarification Form Date: 08/22/2021 11:29:00 AM From: Park VenturaLOVE torres, CCDS Admit Date: 08/19/2021 01:08:00 PM Patient Name: Rene Gonzalez Visit Number: [id number] Discharge Date: ATTENTION: The Clinical Documentation Specialists (CDI) and [facility] Coding Staff appreciate your assistance in clarifying documentation. Please respond to the clarification below the line at the bottom and electronically sign. The CDI & [facility] Coding staff will review the response and follow-up if needed. Please note: Queries are made part of the Legal Health Record. If you have any questions, please contact the author of this message via ITS. Dr. Therese Saucedo: Bronchitis is documented in the 08/19 History & Physical per the 08/19 CXR: Bronchial cuffing which could be on the basis of bronchitis. Bronchitis is also documented in subsequent Progress Notes and in the 08/20 Infectious Disease Consult per the CXR results. Additional clarification is requested. History/Risk Factors per the 08/19 H/P: NIDDM II, Osteoarthritis, Obstructive Sleep Apnea, COPD, Chronic Neck pain & numbness, Chronic Shoulder pain, Rapid heart rate with previous cardiac ablation, Bipolar, Current Smoker. Clinical Indicators: Presented to the ED on 08/19 via EMS with altered mental status & agitation. No medical complaints. escorted to the ED for Suicidal ideation by the police, Leukocytosis 26.5. Admit with Acute delirium. 08/19 VS: T 97.9, P 116, R 18, BP 142/111, 183/90; PO 99 RA, BMI: 25.1 08/19 LAB: WBC 26.5, Neut 22.8, [place] 1.4; Na 135, Cl 92, BUN 38, Glucose 365, Calcium 10.3, Magnesium 1.1, total Protein 8.4 No Lactic Acid 08/19 UA: 1+ Protein, 4+ glucose, 1+ Ketones, Trace Blood. 08/19 Toxicology: Benzodiazepines, Marijuana 08/19 CT Brain: Age related atrophic & chronic small vessel ischemic change without intracranial process. 08/19 CXR: Peribronchial cuffing could be on the basis of a bronchitis. No evidence for focal pneumonia. 08/20 CT Abdomen/Pelvis: No acute finding to account for patient's clinical symptoms of leukocytosis & vomiting, no bowel obstruction. Treatment 08/19: Blood glucose monitoring, Insulin sliding scale, Menard Catheter, Blood culture, IV Ativan 2mg x2, IV Ativan 4 mg x1, IM Zyprexa, IV Zosyn/Tazobactam 200 mls/hr x1, IV Vancomycin 125 mls/hr x1, IV MagSulfate/Dextrose 100 mls/hr q1H, IV Na Cl 100 mls/hr q10H Can you please clarify the following: [ ] Bronchitis, Present on Admission [ ] Bronchitis is Ruled Out [ ] Other, please specify: [ ] Unable to determine (Template Last Revised: August 2020) Bronchitis, Present on Admission MTDD
[2021-08-22 11:45] LABS: Glucose,Whole Blood 210 mg/dL (75-99)
--- NOTE | 2021-08-22 14:35 | P.GSCN ---
History of Present Illness Consult date: 08/22/21 History of present illness: CHIEF COMPLAINT: Epigastric pain and difficulty swallowing HISTORY OF PRESENT ILLNESS: This is a 65-year-old male who presented to Hospital with mental status changes after having severe vomiting for 1 day. Computed tomography scan of abdomen Showed no significant findings to account for patient's leukocytosis and vomiting. No bowel obstruction present. Patient reports that he started to feel better during his admission and was started on a diet. However when he eats he feels that the food sits in the epigastric area and causes pain. He even has difficulty with the liquids. He does report at times having heartburn and indigestion he has known history of acid reflux. He takes an antiacid at home. Patient reports that he ate mashed potatoes and Jell-O for lunch this afternoon and can feel them sitting in the epigastric area . He denies any coughing or choking while eating. Denies any sticking sensation of the food. He's had no further vomiting. Denies any history of EGD denies any history of peptic ulcer disease. He does take Motrin 800 mg about 4 times a week on a regular basis for his back pain and is a smoker. Patient is bipolar. PAST MEDICAL HISTORY: Diabetes Mellitus, Osteoarthritis (OA), Sleep Apnea/CPAP/BIPAP, bipolar PAST SURGICAL HISTORY: Cardiac ablation MEDICATIONS: See list. ALLERGIES: See list. SOCIAL HISTORY: No illicit drug use. Nicotine dependence and marijuana REVIEW OF SYSTEMS: CONSTITUTIONAL: Denies fever or chills. HEENT: Denies blurred vision, vision changes, or eye pain. Denies hemoptysis CARDIOVASCULAR: Denies chest pain or pressure. RESPIRATORY: No shortness of breath. GASTROINTESTINAL: See HPI for pertinent findings HEMATOLOGIC: Denies bleeding disorders. GENITOURINARY: Denies any blood in urine or increased urinary frequency. SKIN: Denies pruitis. Denies rash. PHYSICAL EXAM: VITAL SIGNS: Reviewed GENERAL: Well-developed in no acute distress. HEENT: No sclera icterus. Extraocular movements grossly intact. Moist buccal mucosa. Head is atraumatic, normocephalic. No nasal drainage. ABDOMEN: Soft. Nondistended. Nontender. No epigastric tenderness with palpation NEUROLOGIC: Alert and oriented. Cranial nerves II through XII grossly intact. LABORATORY DATA: WBC on admission 26.5 trending down to 10.4. Hemoglobin 14.3 platelets 327 Sodium 135 potassium 3.4 creatinine 0.69 LFTs normal IMAGING: Computed tomography scan as stated above. ASSESSMENT: 1. Epigastric pain after eating 2. GERD 3. Nicotine dependence 4. Bipolar PLAN: -Esophagram ordered for further evaluations of patient's swallowing and epigastric discomfort -Downgrade diet to clear liquids -Continue to monitor -Discussed smoking cessation -Potassium being replaced by medicine service -Continue Pepcid twice a day Thank you for this consultation Physician [employer] Worker note has been reviewed by physician. Signing provider agrees with the documented findings, assessment, and plan of care. Past Medical History Past Medical History: Diabetes Mellitus, Osteoarthritis (OA), Sleep Apnea/CPAP/BIPAP Additional Past Medical History / Comment(s): neck pain numbness left shoulder, hx rapid heart rate,,no cpap,DIABETIC- DIET CONTROLLED with metformin History of Any Multi-Drug Resistant Organisms: None Reported Past Surgical History: Cardiac Ablation Additional Past Surgical History / Comment(s): colonoscopy, PAIN CLINIC INJECTION Past Anesthesia/Blood Transfusion Reactions: No Reported Reaction Past Psychological History: Bipolar Smoking Status: Current every day smoker Past Alcohol Use History: Occasional Additional Past Alcohol Use History / Comment(s): .STARTED SMOKING AT AGE 14 SMOKES, 1PPD Past Drug Use History: Marijuana Additional Drug Use History / Comment(s): OCCASIONAL USE - Past Family History Mother Family Medical History: No Reported History Medications and Allergies Home Medications Medication Instructions Recorded Confirmed Type QUEtiapine [SEROquel] 400 mg PO HS 12/03/15 08/19/21 History clomiPRAMINE HCL 225 mg PO DAILY 12/03/15 08/19/21 History lamoTRIgine [LaMICtal] 100 mg PO DAILY 09/08/16 08/19/21 History Ibuprofen [Motrin] 800 mg PO Q8H PRN 01/13/18 08/19/21 History Budesonide/Formoterol Fumarate 2 puff INHALATION RT-BID 08/19/21 08/19/21 History [Symbicort 160-4.5 Mcg Inhaler] Empagliflozin [Jardiance] 25 mg PO DAILY 08/19/21 08/19/21 History Eszopiclone [Lunesta] 3 mg PO HS 08/19/21 08/19/21 History metFORMIN HCL ER [Glucophage XR] 500 mg PO BID 08/19/21 08/19/21 History Allergies Allergy/AdvReac Type Severity Reaction Status Date / Time No Known Allergies Allergy Verified 08/19/21 09:58 Surgical - Exam Vital Signs Temp Pulse Resp BP Pulse Ox 97.9 F 116 H 18 142/111 99 08/19/21 07:43 08/19/21 07:43 08/19/21 07:43 08/19/21 07:43 08/19/21 07:43 Results - Labs 08/22/21 05:37 08/22/21 05:37 Abnormal Lab Results - Last 24 Hours (Table) 08/21/21 08/21/21 08/22/21 Range/Units 16:32 20:25 05:37 Sodium 135 L (137-145) mmol/L Potassium 3.4 L (3.5-5.1) mmol/L Glucose 159 H (74-99) mg/dL POC Glucose (mg/dL) 176 H 239 H (75-99) mg/dL 08/22/21 08/22/21 Range/Units 06:56 11:44 Sodium (137-145) mmol/L Potassium (3.5-5.1) mmol/L Glucose (74-99) mg/dL POC Glucose (mg/dL) 157 H 210 H (75-99) mg/dL Microbiology - Last 24 Hours (Table) 08/19/21 13:35 Blood Culture - Preliminary Blood No Growth after 48 hours 08/19/21 13:50 Blood Culture - Preliminary Blood No Growth after 48 hours Diabetes panel 08/22/21 Range/Units 05:37 Sodium 135 L (137-145) mmol/L Potassium 3.4 L (3.5-5.1) mmol/L Chloride 105 (98-107) mmol/L Carbon Dioxide 24 (22-30) mmol/L BUN 13 (9-20) mg/dL Creatinine 0.69 (0.66-1.25) mg/dL Glucose 159 H (74-99) mg/dL Calcium 8.5 (8.4-10.2) mg/dL Calcium panel 08/22/21 Range/Units 05:37 Calcium 8.5 (8.4-10.2) mg/dL Pituitary panel 08/22/21 Range/Units 05:37 Sodium 135 L (137-145) mmol/L Potassium 3.4 L (3.5-5.1) mmol/L Chloride 105 (98-107) mmol/L Carbon Dioxide 24 (22-30) mmol/L BUN 13 (9-20) mg/dL Creatinine 0.69 (0.66-1.25) mg/dL Glucose 159 H (74-99) mg/dL Calcium 8.5 (8.4-10.2) mg/dL Adrenal panel 08/22/21 Range/Units 05:37 Sodium 135 L (137-145) mmol/L Potassium 3.4 L (3.5-5.1) mmol/L Chloride 105 (98-107) mmol/L Carbon Dioxide 24 (22-30) mmol/L BUN 13 (9-20) mg/dL Creatinine 0.69 (0.66-1.25) mg/dL Glucose 159 H (74-99) mg/dL Calcium 8.5 (8.4-10.2) mg/dL
[2021-08-22 16:48] LABS: Glucose,Whole Blood 250 mg/dL (75-99)
--- NOTE | 2021-08-22 17:17 | P.PN ---
Subjective Progress Note Date: 08/22/21 Principal diagnosis: leukocytosis Patient is a 65-year-old male presented to the hospital with mental status changes some weakness and an episode of vomiting in this patient had noticed to have elevated white count On today's evaluation that is 08/22/2021, the patient remains to be afebrile, the patient is breathing comfortably on room air, the patient denies chest pain shortness of breath or cough , the patient is coming of some epigastric abdominal pain but no vomiting or diarrhea Objective - Vital Signs Vital signs: Vital Signs Temp 98.2 F 08/22/21 07:40 Pulse 104 H 08/22/21 08:09 Resp 17 08/22/21 08:09 BP 152/81 08/22/21 07:40 Pulse Ox 97 08/22/21 07:40 Intake & Output 08/21/21 08/22/21 08/22/21 18:59 06:59 18:59 Intake Total 1200 Balance 1200 Intake: Intake, IV Titration 1200 Amount Ampicillin-Sulbactam 3 gm 200 In Sodium Chloride 0.9% 100 ml @ 200 mls/hr IVPB Q6H [facility] Rx#:[id number] Sodium Chloride 0.9% 1, 1000 000 ml @ 100 mls/hr IV . Q10H [facility] Rx#:[id number] Other: Voiding Method Urinal Urinal Toilet # Voids 1 - Exam GENERAL DESCRIPTION: Elderly male lying in bed in no distress RESPIRATORY SYSTEM: Unlabored breathing , decreased breath sounds at bases HEART: S1 S2 regular rate and rhythm ,no loud murmurs ABDOMEN: Soft , no tenderness EXTREMITIES: No edema feet - Labs CBC & Chem 7: 08/22/21 05:37 08/22/21 05:37 Labs: Abnormal Lab Results - Last 24 Hours (Table) 08/21/21 08/21/21 08/22/21 Range/Units 16:32 20:25 05:37 Sodium 135 L (137-145) mmol/L Potassium 3.4 L (3.5-5.1) mmol/L Glucose 159 H (74-99) mg/dL POC Glucose (mg/dL) 176 H 239 H (75-99) mg/dL 08/22/21 08/22/21 Range/Units 06:56 11:44 Sodium (137-145) mmol/L Potassium (3.5-5.1) mmol/L Glucose (74-99) mg/dL POC Glucose (mg/dL) 157 H 210 H (75-99) mg/dL Microbiology - Last 24 Hours (Table) 08/19/21 13:35 Blood Culture - Preliminary Blood No Growth after 48 hours 08/19/21 13:50 Blood Culture - Preliminary Blood No Growth after 48 hours Assessment and Plan (1) SIRS (systemic inflammatory response syndrome) Current Visit: Yes Status: Acute Code(s): R65.10 - SIRS OF NON-INFECTIOUS ORIGIN W/O ACUTE ORGAN DYSFUNCTION SNOMED Code(s): 435995547 (2) Leukocytosis Current Visit: No Status: Acute Code(s): D72.829 - ELEVATED WHITE BLOOD CELL COUNT, UNSPECIFIED SNOMED Code(s): 193890457 Plan: 1patient presented to hospital with some mental status changes did have an epi sode of vomiting with elevated white count concern for possible abdominal source CT abdominal pelvis did not show any acute abnormality, patient white count has normalized culture has been negative he is currently on Unasyn to continue and will finish therapy short course of oral Augmentin Time with Patient: Less than 30
[2021-08-22 20:10] LABS: Glucose,Whole Blood 217 mg/dL (75-99)
[2021-08-22] MEDS: TEMAZEPAM 15 MG CAP PO SCH (20:40)
[2021-08-22] MEDS: QUEtiapine 400 MG TAB PO SCH (20:41)
[2021-08-23] MEDS: SODIUM CHLORIDE 0.9% 1,000 ML IV SCH ×3 (00:54→21:43)
[2021-08-23] MEDS: AMPICILLIN-SULBACTAM 3 GM in SODIUM CHLORIDE 0.9% 100 ML IVPB SCH ×4 (00:57→18:10)
--- NOTE | 2021-08-23 06:10 | P.PN ---
Subjective Progress Note Date: 08/22/21 Patient is a 64-year-old male with a known history of diabetes type 2 [id number], osteoarthritis, obstructive sleep apnea not on CPAP at home, COPD, chronic neck pain and shoulder pain, bipolar disorder and currently everyday smoker and occasional marijuana use was brought to the hospital by EMS due to altered mental status. Patient's called EMS. Apparently patient has not been confused and not talking since Thursday. He also did have episodes of nausea and vomiting. Patient usually awake alert oriented x3. He does have a history of bipolar disorder. Patient has not been tracking and mood since admission. Otherwise patient is agitated and walks in the hallway. Patient has been afebrile. No cough or sputum production. Chest x-ray showed there is very bronchial cuffing which could be on the basis of the bronchitis. Correlate clinically. No evidence for focal pneumonia at this time. Patient was given a dose of vancomycin and Zosyn in the ER. On admission blood pressure was 142/111, heart rate 116 and pulse ox 91% on room air. Laboratory showed WBC 26.5 hemoglobin 16.4 platelets 429 neutrophils 22.8 Sodium 135 potassium 3.7 chloride 92 bicarb is 27 BUN 38 and creatinine 1.08 and blood sugar was 365 calcium 10 point Urinalysis is negative for infection UDS is positive for benzodiazepines and marijuana CT head showed age-related atrophic and chronic small vessel ischemic change without acute intracranial process seen at this time. EKG showed sinus tachycardia. 08/20/2021 Patient is seen in follow up today and lethargic but arousable. Per nursing staff, patient has not urinated since last night and retaining. Patient refusing lockwood catheter at this time. Ordered intermittent straight catheter as needed. Patient refusing. temporary staff accountant later reported to patient voiding and flomax was started. Patient continues with an elevated WBC and ID following. Patient is continued on IV antibiotics. Psychiatry consulted and pending. Patient denies chest pain or shortness of breath. Patient denies nausea or vomiting and states he is tolerating diet. CT abdomen pelvis ordered and pending. 08/21/2021 Patient is seen this morning with at the bedside. Patient mentation is much improved. Patient is now eating and tolerating diet with no further reports of nausea or vomiting. Patient does report to acid reflux issues that persists and states has been ongoing for quite some time. Will refer to GI outpatient. Patient was evaluated by psychiatry and home medications resumed. WBC trending down and continued on IV abx with ID following. CT abdomen was negative. Patient denies chest pain or shortness of breath. Patient is afebrile. Patient is voiding with no difficulties. 08/22/2021 Patient is seen and evaluated today in follow up and wbc trending down and is 10 today. Patient is afebrile. Patient is alert and oriented x3. Discussing possible discharge today and patient reports to having difficulty with feeling food is trapped in his esophagus and not passing. Patient reports to having this sensation with liquids now as well. Patient reports to having history of acid reflux and has been taking antacids. General surgery consulted. ID following as well and will discuss further about requiring discharge antibiotics. Patient denies chest pain or shortness of breath. All medications have been reviewed Active Medications Acetaminophen (Acetaminophen Tab 325 Mg Tab) 650 mg PO Q6HR PRN PRN Reason: Mild Pain or Fever > 100.5 Budesonide/Formoterol Fumarate (Symbicort 160-4.5 Mcg Inhaler) 2 puff INHALATION RT-BID [facility] Last Admin: 08/22/21 19:03 Dose: Not Given Documented by: Clomipramine HCl (Clomipramine 50 Mg Cap) 200 mg PO DAILY [facility] Last Admin: 08/22/21 06:47 Dose: 200 mg Documented by: Famotidine (Famotidine 20 Mg Tab) 20 mg PO Q12HR [facility] Last Admin: 08/22/21 20:40 Dose: 20 mg Documented by: Haloperidol Lactate (Haloperidol Lactate 5 Mg/Ml 1 Ml Vial) 5 mg IM Q6HR PRN PRN Reason: Agitation or Acute Psychosis Heparin Sodium (Porcine) (Heparin Sodium,Porcine/Pf 5,000 Unit/0.5 Ml Syringe) 5,000 unit SQ Q8HR [facility] Last Admin: 08/22/21 20:40 Dose: 5,000 unit Documented by: Sodium Chloride (Saline 0.9%) 1,000 mls @ 100 mls/hr IV .Q10H [facility] Last Admin: 08/23/21 00:54 Dose: Not Given Documented by: Ampicillin Sodium/Sulbactam (Sodium 3 gm/ Sodium Chloride) 100 mls @ 200 mls/hr IVPB Q6H [facility]; Protocol Last Admin: 08/23/21 05:51 Dose: 200 mls/hr Documented by: Insulin Aspart (Insulin Aspart (Novolog) 100 Unit/Ml Vial) 0 unit SQ ACHS [facility]; Protocol Last Admin: 08/22/21 20:41 Dose: 3 unit Documented by: Lamotrigine (Lamotrigine 100 Mg Tab) 100 mg PO DAILY [facility] Last Admin: 08/22/21 06:46 Dose: 100 mg Documented by: Lorazepam (Lorazepam 2 Mg/Ml Inj) 1 mg IV Q2HR PRN PRN Reason: Anxiety Last Admin: 08/19/21 23:43 Dose: 1 mg Documented by: Naloxone HCl (Naloxone 0.4 Mg/Ml 1 Ml Vial) 0.2 mg IV Q2M PRN PRN Reason: Opioid Reversal Non-Formulary Medication (Empagliflozin [Jardiance]) 25 mg PO DAILY [facility] Last Admin: 08/22/21 06:50 Dose: Not Given Documented by: Quetiapine Fumarate (Quetiapine 400 Mg Tab) 400 mg PO [facility] Last Admin: 08/22/21 20:41 Dose: 400 mg Documented by: Tamsulosin HCl (Tamsulosin 0.4 Mg Cap.Er.24h) 0.4 mg PO PC-BRKFST [facility] Last Admin: 08/22/21 06:46 Dose: 0.4 mg Documented by: Temazepam (Temazepam 15 Mg Cap) 30 mg PO [facility] Last Admin: 08/22/21 20:40 Dose: 30 mg Documented by: Physical exam: Patient is awake, alert and oriented x 3. thin built, appears older than stated age. HEENT: Normocephalic. Neck is supple. Pupils reactive. Nostrils clear. Oral cavity is moist. Neck: no JVD, carotid bruits, or thyromegaly. CHEST EXAMINATION: Trachea is central. Symmetrical expansion. Lung ohara clear to auscultation and percussion. CARDIAC: Normal S1, S2 with no gallops. No murmurs ABDOMEN: Soft. Bowel sounds normal. No organomegaly. No abdominal bruits. Extremities: reveal no edema. No clubbing or cyanosis Neurologically awake, alert x3. With well-coordinated movements. No gross focal deficits noted Skin: No rash or skin lesions. Psychiatric: cooperative. Musculoskeletal: No joint swelling or deformity. Normal range of motion. Assessment: Altered mental status rule out metabolic, toxic, infectious etiology. SIRS with significant leukocytosis and tachycardia. Chest x-ray showed peribron chial cuffing no evidence of pneumonia. UA negative for infection. Dysphagia Possible metabolic and toxic encephalopathy, improved Hypovolemic hyponatremia secondary to vomiting Hyperglycemia with uncontrolled diabetes type 2 [id number] Severe hypomagnesemia, now hypermagnesemia Obstructive sleep apnea not on CPAP at home Bipolar disorder Currently everyday smoker COPD not in exacerbation UDS positive for benzodiazepines and marijuana DVT prophylaxis with heparin subcu Full code Plan: Patient will be continued on IV hydration with normal saline and maintained on IV antibiotics with ID following. cultures are negative. WBC trending down psychiatry following and resumed home medications. Patient having some difficulty with food passage in the esophagus and some mid- epigastric discomfort and intolerance to food and the same sensation with liquids. General surgery consulted for possible EGD. Appreciate input and recommendations. Decrease diet to clear liquids for now and esophagram ordered. Mentation much improved Continue sliding scale and accuchecks achs for better blood sugar control. Continue to follow closely. Prognosis is guarded at this time. Possible discharge in 24 hours. The impression and plan of care has been dictated by Shonda Sumner, nurse practitioner as directed. MD Makenna I have performed a history and examination and MDM of this patient, discussed the same with the dictator, and agree with the dictator's assessment and plan as written ,documented as a scribe. Based on total visit time, I have performed more than 50% of the visit. Objective - Vital Signs Vital signs: Vital Signs Temp 98.2 F 08/22/21 07:40 Pulse 104 H 08/22/21 08:09 Resp 17 08/22/21 08:09 BP 152/81 08/22/21 07:40 Pulse Ox 97 08/22/21 07:40 Intake & Output 08/21/21 08/22/21 08/22/21 18:59 06:59 18:59 Intake Total 1200 Balance 1200 Intake: Intake, IV Titration 1200 Amount Ampicillin-Sulbactam 3 gm 200 In Sodium Chloride 0.9% 100 ml @ 200 mls/hr IVPB Q6H [facility] Rx#:[id number] Sodium Chloride 0.9% 1, 1000 000 ml @ 100 mls/hr IV . Q10H [facility] Rx#:[id number] Other: Voiding Method Urinal Urinal Toilet # Voids 1 - Labs CBC & Chem 7: 08/22/21 05:37 08/22/21 05:37 Labs: Abnormal Lab Results - Last 24 Hours (Table) 08/21/21 08/21/21 08/21/21 Range/Units 11:31 16:32 20:25 Sodium (137-145) mmol/L Potassium (3.5-5.1) mmol/L Glucose (74-99) mg/dL POC Glucose (mg/dL) 200 H 176 H 239 H (75-99) mg/dL 08/22/21 08/22/21 Range/Units 05:37 06:56 Sodium 135 L (137-145) mmol/L Potassium 3.4 L (3.5-5.1) mmol/L Glucose 159 H (74-99) mg/dL POC Glucose (mg/dL) 157 H (75-99) mg/dL Microbiology - Last 24 Hours (Table) 08/19/21 13:35 Blood Culture - Preliminary Blood No Growth after 48 hours 08/19/21 13:50 Blood Culture - Preliminary Blood No Growth after 48 hours
[2021-08-23 06:53] LABS: Glucose,Whole Blood 159 mg/dL (75-99)
[2021-08-23] MEDS: NON FORMULARY DRUG (Empagliflozin [Jardiance] 25 MG Tablet) PO SCH (08:27)
[2021-08-23] MEDS: SYMBICORT 160-4.5 MCG INHALER INHALATION SCH ×2 (09:32→19:29)
[2021-08-23] MEDS: INSULIN ASPART (NovoLOG) 100 UNIT/ML VIAL SQ SCH ×4 (09:34→21:42)
[2021-08-23] MEDS: HEPARIN SODIUM,PORCINE/PF 5,000 UNIT/0.5 ML SYRINGE SQ SCH ×3 (09:46→21:42)
[2021-08-23] MEDS: FAMOTIDINE 20 MG TAB PO SCH (09:46)
[2021-08-23] MEDS: lamoTRIgine 100 MG TAB PO SCH (09:46)
[2021-08-23] MEDS: TAMSULOSIN 0.4 MG CAP.ER.24H PO SCH (09:46)
--- NOTE | 2021-08-23 10:18 | FL ---
EXAMINATION TYPE: FL UGI w esophagus DATE OF EXAM: 08/23/2021 COMPARISON: CT abdomen and pelvis 3 days ago. HISTORY: Repeated vomiting. Severe epigastric pain after eating and drinking. TECHNIQUE: A double contrast UGI study is performed. A total of 65 seconds of fluoroscopic time was utilized during procedure and 69 images obtained. FINDINGS: Medical Interpreter image of the abdomen deferred due to recent CT. The esophagus shows satisfactory motility and emptying into the stomach. No diverticulum or stricture . Small sliding-type hiatal hernia. The stomach shows normal distensibility and peristalsis. Mild diffuse gastric fold prominence. No fo javan ulcer disease. Moderate gastroesophageal reflux was seen during real time performance of this sachi dy. The duodenal bulb, sweep, and proximal small bowel loops are unremarkable. Some residual contrast fro m recent CT seen filling the colon. IMPRESSION: Small sliding-type hiatal hernia. Mild borderline moderate diffuse gastritis. Moderate di stal gastroesophageal reflux.
[2021-08-23 11:09] LABS: Glucose,Whole Blood 182 mg/dL (75-99)
[2021-08-23] MEDS: PANTOPRAZOLE 40 MG/10 ML VIAL IVP SCH (13:21)
--- NOTE | 2021-08-23 13:44 | P.PN ---
Subjective Progress Note Date: 08/23/21 CHIEF COMPLAINT: Epigastric pain and difficulty swallowing HISTORY OF PRESENT ILLNESS: Patient complains of epigastric discomfort after eating. He reports that some of the liquids did cause epigastric discomfort. He denies any difficulty actually swallowing. Denies any nausea or vomiting. Upper GI shows a small sliding hiatal hernia. Mild borderline moderate diffuse gastritis. Moderate distal GERD. Afebrile. PHYSICAL EXAM: VITAL SIGNS: Reviewed. GENERAL: Well-developed in no acute distress. HEENT: No sclera icterus. Extraocular movements grossly intact. Moist buccal mucosa. Head is atraumatic, normocephalic. ABDOMEN: Soft. Nondistended. Nontender. NEUROLOGIC: Alert and oriented. Cranial nerves II through XII grossly intact. ASSESSMENT: 1. Epigastric pain 2. Small sliding hiatal hernia, mild borderline moderate diffuse gastritis and moderate distal GERD noted on upper GI PLAN: -Patient scheduled for EGD on 08/25/2021 -Switch patient from oral Pepcid IV Protonix -Continue clear liquids for now Physician Exchange Floor Manager note has been reviewed by physician. Signing provider agrees with the documented findings, assessment, and plan of care. Objective - Vital Signs Vital signs: Vital Signs Temp 98.2 F 08/23/21 07:25 Pulse 85 08/23/21 07:25 Resp 18 08/23/21 07:25 BP 147/89 08/23/21 07:25 Pulse Ox 98 08/23/21 07:25 Intake & Output 08/22/21 08/23/21 08/23/21 18:59 06:59 18:59 Intake Total 600 Balance 600 Intake: Intake, IV Titration 600 Amount Ampicillin-Sulbactam 3 gm 100 In Sodium Chloride 0.9% 100 ml @ 200 mls/hr IVPB Q6H [facility] Rx#:[id number] Sodium Chloride 0.9% 1, 500 000 ml @ 100 mls/hr IV . Q10H [facility] Rx#:[id number] Other: Voiding Method Toilet Toilet # Voids 2 - Labs CBC & Chem 7: 08/22/21 05:37 08/22/21 05:37 Labs: Abnormal Lab Results - Last 24 Hours (Table) 08/22/21 08/22/21 08/23/21 Range/Units 16:47 20:09 06:52 POC Glucose (mg/dL) 250 H 217 H 159 H (75-99) mg/dL 08/23/21 Range/Units 11:08 POC Glucose (mg/dL) 182 H (75-99) mg/dL Microbiology - Last 24 Hours (Table) 08/19/21 13:50 Blood Culture - Preliminary Blood No Growth after 72 hours 08/19/21 13:35 Blood Culture - Preliminary Blood No Growth after 72 hours
--- NOTE | 2021-08-23 16:02 | P.PN ---
Subjective Progress Note Date: 08/23/21 Principal diagnosis: leukocytosis Patient is a 65-year-old male presented to the hospital with mental status changes some weakness and an episode of vomiting in this patient had noticed to have elevated white count On today's evaluation that is 08/23/2021, the patient denies any fever or chills, the patient is breathing comfortably on room air, the patient denies chest pain shortness of breath or cough , the patient is complaining of epigastric pain but no vomiting or diarrhea Objective - Vital Signs Vital signs: Vital Signs Temp 98.2 F 08/23/21 07:25 Pulse 85 08/23/21 07:25 Resp 18 08/23/21 07:25 BP 147/89 08/23/21 07:25 Pulse Ox 98 08/23/21 07:25 Intake & Output 08/22/21 08/23/21 08/23/21 18:59 06:59 18:59 Intake Total 600 Balance 600 Intake: Intake, IV Titration 600 Amount Ampicillin-Sulbactam 3 gm 100 In Sodium Chloride 0.9% 100 ml @ 200 mls/hr IVPB Q6H [facility] Rx#:[id number] Sodium Chloride 0.9% 1, 500 000 ml @ 100 mls/hr IV . Q10H [facility] Rx#:[id number] Other: Voiding Method Toilet Toilet # Voids 2 - Exam GENERAL DESCRIPTION: Elderly male lying in bed in no distress RESPIRATORY SYSTEM: Unlabored breathing , decreased breath sounds at bases HEART: S1 S2 regular rate and rhythm ,no loud murmurs ABDOMEN: Soft , no tenderness EXTREMITIES: No edema feet - Labs CBC & Chem 7: 08/22/21 05:37 08/22/21 05:37 Labs: Abnormal Lab Results - Last 24 Hours (Table) 08/22/21 08/22/21 08/23/21 Range/Units 16:47 20:09 06:52 POC Glucose (mg/dL) 250 H 217 H 159 H (75-99) mg/dL 08/23/21 Range/Units 11:08 POC Glucose (mg/dL) 182 H (75-99) mg/dL Microbiology - Last 24 Hours (Table) 08/19/21 13:50 Blood Culture - Preliminary Blood No Growth after 72 hours 08/19/21 13:35 Blood Culture - Preliminary Blood No Growth after 72 hours Assessment and Plan (1) SIRS (systemic inflammatory response syndrome) Current Visit: Yes Status: Acute Code(s): R65.10 - SIRS OF NON-INFECTIOUS OR IGIN W/O ACUTE ORGAN DYSFUNCTION SNOMED Code(s): 278917555 (2) Leukocytosis Current Visit: No Status: Acute Code(s): D72.829 - ELEVATED WHITE BLOOD CELL COUNT, UNSPECIFIED SNOMED Code(s): 157482045 Plan: 1patient presented to hospital with some mental status changes did have an episode of vomiting with elevated white count concern for possible abdominal source CT abdominal pelvis did not show any acute abnormality, patient white count has normalized culture has been negative the patient to continue with Unasyn while waiting for the GI workup to finalize, family at the bedside questions were answered Time with Patient: Less than 30
[2021-08-23 16:36] LABS: Glucose,Whole Blood 172 mg/dL (75-99)
[2021-08-23 20:49] LABS: Glucose,Whole Blood 146 mg/dL (75-99)
[2021-08-23] MEDS: TEMAZEPAM 15 MG CAP PO SCH (21:43)
[2021-08-23] MEDS: QUEtiapine 400 MG TAB PO SCH (21:43)
[2021-08-24] MEDS: AMPICILLIN-SULBACTAM 3 GM in SODIUM CHLORIDE 0.9% 100 ML IVPB SCH ×5 (00:44→23:12)
--- NOTE | 2021-08-24 01:42 | P.PN ---
Subjective Progress Note Date: 08/23/21 Patient is a 64-year-old male with a known history of diabetes type 2 [id number], osteoarthritis, obstructive sleep apnea not on CPAP at home, COPD, chronic neck pain and shoulder pain, bipolar disorder and currently everyday smoker and occasional marijuana use was brought to the hospital by EMS due to altered mental status. Patient's called EMS. Apparently patient has not been confused and not talking since Thursday. He also did have episodes of nausea and vomiting. Patient usually awake alert oriented x3. He does have a history of bipolar disorder. Patient has not been tracking and mood since admission. Otherwise patient is agitated and walks in the hallway. Patient has been afebrile. No cough or sputum production. Chest x-ray showed there is very bronchial cuffing which could be on the basis of the bronchitis. Correlate clinically. No evidence for focal pneumonia at this time. Patient was given a dose of vancomycin and Zosyn in the ER. On admission blood pressure was 142/111, heart rate 116 and pulse ox 91% on room air. Laboratory showed WBC 26.5 hemoglobin 16.4 platelets 429 neutrophils 22.8 Sodium 135 potassium 3.7 chloride 92 bicarb is 27 BUN 38 and creatinine 1.08 and blood sugar was 365 calcium 10 point Urinalysis is negative for infection UDS is positive for benzodiazepines and marijuana CT head showed age-related atrophic and chronic small vessel ischemic change without acute intracranial process seen at this time. EKG showed sinus tachycardia. 08/20/2021 Patient is seen in follow up today and lethargic but arousable. Per nursing staff, patient has not urinated since last night and retaining. Patient refusing lockwood catheter at this time. Ordered intermittent straight catheter as needed. Patient refusing. director of midwifery/staff midwife later reported to patient voiding and flomax was started. Patient continues with an elevated WBC and ID following. Patient is continued on IV antibiotics. Psychiatry consulted and pending. Patient denies chest pain or shortness of breath. Patient denies nausea or vomiting and states he is tolerating diet. CT abdomen pelvis ordered and pending. 08/21/2021 Patient is seen this morning with at the bedside. Patient mentation is much improved. Patient is now eating and tolerating diet with no further reports of nausea or vomiting. Patient does report to acid reflux issues that persists and states has been ongoing for quite some time. Will refer to GI outpatient. Patient was evaluated by psychiatry and home medications resumed. WBC trending down and continued on IV abx with ID following. CT abdomen was negative. Patient denies chest pain or shortness of breath. Patient is afebrile. Patient is voiding with no difficulties. 08/22/2021 Patient is seen and evaluated today in follow up and wbc trending down and is 10 today. Patient is afebrile. Patient is alert and oriented x3. Discussing possible discharge today and patient reports to having difficulty with feeling food is trapped in his esophagus and not passing. Patient reports to having this sensation with liquids now as well. Patient reports to having history of acid reflux and has been taking antacids. General surgery consulted. ID following as well and will discuss further about requiring discharge antibiotics. Patient denies chest pain or shortness of breath. 08/23/2021 Patient is seen in follow up status post esophagram this morning which showed small sliding hiatal hernia, mild borderline moderate diffuse gastritis and moderate distal GERD. Patient was maintained on pepcid and will transition to IV protonix. General surgery and ID following. Patient continues on Zosyn. Patient tolerating clear liquids although reports continued epigastric pain. Patient denies chest pain or shortness of breath. Patient is afebrile. No reports of nausea or vomiting noted. All medications have been reviewed Active Medications Acetaminophen (Acetaminophen Tab 325 Mg Tab) 650 mg PO Q6HR PRN PRN Reason: Mild Pain or Fever > 100.5 Budesonide/Formoterol Fumarate (Symbicort 160-4.5 Mcg Inhaler) 2 puff INHALATION RT-BID [facility] Last Admin: 08/23/21 19:29 Dose: Not Given Documented by: Clomipramine HCl (Clomipramine 50 Mg Cap) 200 mg PO DAILY [facility] Last Admin: 08/23/21 09:46 Dose: 200 mg Documented by: Haloperidol Lactate (Haloperidol Lactate 5 Mg/Ml 1 Ml Vial) 5 mg IM Q6HR PRN PRN Reason: Agitation or Acute Psychosis Heparin Sodium (Porcine) (Heparin Sodium,Porcine/Pf 5,000 Unit/0.5 Ml Syringe) 5,000 unit SQ Q8HR [facility] Last Admin: 08/23/21 21:42 Dose: 5,000 unit Documented by: Sodium Chloride (Saline 0.9%) 1,000 mls @ 100 mls/hr IV .Q10H [facility] Last Admin: 08/23/21 21:43 Dose: Not Given Documented by: Ampicillin Sodium/Sulbactam (Sodium 3 gm/ Sodium Chloride) 100 mls @ 200 mls/hr IVPB Q6H [facility]; Protocol Last Admin: 08/24/21 00:44 Dose: 200 mls/hr Documented by: Insulin Aspart (Insulin Aspart (Novolog) 100 Unit/Ml Vial) 0 unit SQ ACHS [facility]; Protocol Last Admin: 08/23/21 21:42 Dose: 1 unit Documented by: Lamotrigine (Lamotrigine 100 Mg Tab) 100 mg PO DAILY [facility] Last Admin: 08/23/21 09:46 Dose: 100 mg Documented by: Lorazepam (Lorazepam 2 Mg/Ml Inj) 1 mg IV Q2HR PRN PRN Reason: Anxiety Last Admin: 08/19/21 23:43 Dose: 1 mg Documented by: Naloxone HCl (Naloxone 0.4 Mg/Ml 1 Ml Vial) 0.2 mg IV Q2M PRN PRN Reason: Opioid Reversal Non-Formulary Medication (Empagliflozin [Jardiance]) 25 mg PO DAILY [facility] Last Admin: 08/23/21 08:27 Dose: Not Given Documented by: Pantoprazole Sodium (Pantoprazole 40 Mg/10 Ml Vial) 40 mg IVP DAILY [facility] Last Admin: 08/23/21 13:21 Dose: 40 mg Documented by: Quetiapine Fumarate (Quetiapine 400 Mg Tab) 400 mg PO [facility] Last Admin: 08/23/21 21:43 Dose: 400 mg Documented by: Tamsulosin HCl (Tamsulosin 0.4 Mg Cap.Er.24h) 0.4 mg [facility] Last Admin: 08/23/21 09:46 Dose: 0.4 mg Documented by: Temazepam (Temazepam 15 Mg Cap) 30 mg PO [facility] Last Admin: 08/23/21 21:43 Dose: 30 mg Documented by: Physical exam: Patient is awake, alert and oriented x 3. thin built, appears older than stated age. HEENT: Normocephalic. Neck is supple. Pupils reactive. Nostrils clear. Oral cavity is moist. Neck: no JVD, carotid bruits, or thyromegaly. CHEST EXAMINATION: Trachea is central. Symmetrical expansion. Lung ohara clear to auscultation and percussion. CARDIAC: Normal S1, S2 with no gallops. No murmurs ABDOMEN: Soft. Bowel sounds normal. No organomegaly. No abdominal bruits. Extremities: reveal no edema. No clubbing or cyanosis Neurologically awake, alert x3. With well-coordinated movements. No gross focal deficits noted Skin: No rash or skin lesions. Psychiatric: cooperative. Musculoskeletal: No joint swelling or deformity. Normal range of motion. Assessment: Altered mental status rule out metabolic, toxic, infectious etiology. resolved SIRS with significant leukocytosis and tachycardia. Chest x-ray showed peribronchial cuffing no evidence of pneumonia. UA negative for infection. Epigastric pain Small sliding hiatal hernia, mild borderline moderate diffuse gastritis and moderate distal GERD noted on upper GI Possible metabolic and toxic encephalopathy, improved Hypovolemic hyponatremia secondary to vomiting Hyperglycemia with uncontrolled diabetes type 2 [id number]-[id number] Severe hypomagnesemia, now hypermagnesemia Obstructive sleep apnea not on CPAP at home Bipolar disorder Currently everyday smoker COPD not in exacerbation UDS positive for benzodiazepines and marijuana DVT prophylaxis with heparin subcu Full code Plan: Patient will be continued on IV hydration with normal saline and maintained on IV antibiotics with ID following. cultures are negative. WBC trending down psychiatry following and resumed home medications. Patient having some difficulty mid-epigastric discomfort and intolerance to food and the same sensation with liquids. General surgery following and patient underwent esophagram revealing small sliding hiatal hernia, mild borderline mo derate diffuse gastritis and moderate distal GERD. Continue clear liquids per surgery Transition pepcid to IV protonix EGD scheduled for 08/26/2021 Mentation much improved Continue sliding scale and accuchecks achs for better blood sugar control. Continue to follow closely. Prognosis is guarded at this time. The impression and plan of care has been dictated by Shonda Sumnre, nurse practitioner as directed. MD Makenna I have performed a history and examination and MDM of this patient, discussed the same with the dictator, and agree with the dictator's assessment and plan as written ,documented as a scribe. Based on total visit time, I have performed more than 50% of the visit. Objective - Vital Signs Vital signs: Vital Signs Temp 98.1 F 08/23/21 00:41 Pulse 104 H 08/23/21 00:41 Resp 15 08/23/21 00:41 BP 118/76 08/23/21 00:41 Pulse Ox 97 08/23/21 00:41 Intake & Output 08/22/21 08/23/21 08/23/21 18:59 06:59 18:59 Intake Total 600 Balance 600 Intake: Intake, IV Titration 600 Amount Ampicillin-Sulbactam 3 gm 100 In Sodium Chloride 0.9% 100 ml @ 200 mls/hr IVPB Q6H [facility] Rx#:[id number] Sodium Chloride 0.9% 1, 500 000 ml @ 100 mls/hr IV . Q10H [facility] Rx#:[id number] Other: Voiding Method Toilet Toilet # Voids 2 - Labs CBC & Chem 7: 08/22/21 05:37 08/22/21 05:37 Labs: Abnormal Lab Results - Last 24 Hours (Table) 08/22/21 08/22/21 08/22/21 Range/Units 11:44 16:47 20:09 POC Glucose (mg/dL) 210 H 250 H 217 H (75-99) mg/dL 08/23/21 Range/Units 06:52 POC Glucose (mg/dL) 159 H (75-99) mg/dL Microbiology - Last 24 Hours (Table) 08/19/21 13:50 Blood Culture - Preliminary Blood No Growth after 72 hours 08/19/21 13:35 Blood Culture - Preliminary Blood No Growth after 72 hours
[2021-08-24] MEDS: SODIUM CHLORIDE 0.9% 1,000 ML IV SCH ×2 (05:31→18:02)
[2021-08-24 06:53] LABS: Glucose,Whole Blood 158 mg/dL (75-99)
[2021-08-24 07:06] LABS: Basophils # (A) 0.1 k/uL (0-0.2); Basophils % (A) 1 %; Eosinophils # (A) 0.4 k/uL (0-0.7); Eosinophils % (A) 3 %; HCT 41.7 % (39.0-53.0); HGB 14.3 gm/dL (13.0-17.5); Lymphocytes # (A) 2.8 k/uL (1.0-4.8); Lymphocytes % (A) 24 %; MCH 31.2 pg (25.0-35.0); MCHC 34.4 g/dL (31.0-37.0); MCV 90.6 fL (80.0-100.0); Mean Platelet Volume 6.7; Monocytes # (A) 0.9 k/uL (0-1.0); Monocytes % (A) 8 %; Neutrophils # (A) 7.2 k/uL (1.3-7.7); Neutrophils % (A) 62 %; Platelet Count 334 k/uL (150-450); WBC 11.7 k/uL (3.8-10.6)
[2021-08-24] MEDS: SYMBICORT 160-4.5 MCG INHALER INHALATION SCH ×2 (08:56→20:18)
[2021-08-24] MEDS: NON FORMULARY DRUG (Empagliflozin [Jardiance] 25 MG Tablet) PO SCH (09:16)
[2021-08-24] MEDS: PANTOPRAZOLE 40 MG/10 ML VIAL IVP SCH (09:25)
[2021-08-24] MEDS: HEPARIN SODIUM,PORCINE/PF 5,000 UNIT/0.5 ML SYRINGE SQ SCH ×3 (09:26→23:12)
[2021-08-24] MEDS: TAMSULOSIN 0.4 MG CAP.ER.24H PO SCH (09:26)
[2021-08-24] MEDS: INSULIN ASPART (NovoLOG) 100 UNIT/ML VIAL SQ SCH ×4 (09:26→21:26)
[2021-08-24] MEDS: lamoTRIgine 100 MG TAB PO SCH (09:26)
--- NOTE | 2021-08-24 11:03 | P.PN ---
Progress Note - Text Progress Note Date: 08/24/21 Patient remained stable. He's had some mild GERD. On exam vital signs are stable. Abdomen soft. Patient scheduled for EGD on Thursday
[2021-08-24 11:13] LABS: Glucose,Whole Blood 170 mg/dL (75-99)
[2021-08-24] MEDS ORDERED: bisacodyL 10 MG SUPP RECTAL PRN (11:45)
[2021-08-24] MEDS ORDERED: bisacodyL 5 MG TABLET.DR PO PRN (11:45)
[2021-08-24 13:07] LABS: African American GFR (CKD) 102.7 (60.0-200.0); Anion Gap 12.5 mmol/L (10.00-18.00); BUN/Creat Ratio 14.13 Ratio (12.00-20.00); Blood Urea Nitrogen 12.8 mg/dL (9.0-27.0); Calcium 8.9 mg/dL (8.7-10.3); Carbon Dioxide 22.8 mmol/L (20.0-27.5); Non-African American GFR(CKD) 88.6 (60.0-200.0); Potassium 3.8 mmol/L (3.5-5.5)
[2021-08-24 16:30] LABS: Glucose,Whole Blood 199 mg/dL (75-99)
[2021-08-24 20:15] LABS: Glucose,Whole Blood 135 mg/dL (75-99)
[2021-08-24] MEDS: TEMAZEPAM 15 MG CAP PO SCH (21:26)
[2021-08-24] MEDS: QUEtiapine 400 MG TAB PO SCH (21:26)
--- NOTE | 2021-08-24 23:19 | P.PN ---
Subjective Progress Note Date: 08/24/21 Principal diagnosis: leukocytosis Patient is a 65-year-old male presented to the hospital with mental status changes some weakness and an episode of vomiting in this patient had noticed to have elevated white count On today's evaluation that is 08/24/2021, the patient remains to be afebrile, the patient is breathing comfortably on room air, the patient denies chest pain shortness of breath or cough , the patient epigastric pain seems to have slightly decreased in intensity no vomiting or diarrhea Objective - Vital Signs Vital signs: Vital Signs Temp 98.8 F 08/24/21 13:41 Pulse 94 08/24/21 13:41 Resp 18 08/24/21 13:41 BP 130/81 08/24/21 13:41 Pulse Ox 98 08/24/21 13:41 Intake & Output 08/23/21 08/24/21 08/24/21 18:59 06:59 18:59 Intake Total 180 360 Balance 180 360 Intake: Oral 180 360 Other: Voiding Method Toilet # Voids 5 3 - Exam GENERAL DESCRIPTION: Elderly male lying in bed in no distress RESPIRATORY SYSTEM: Unlabored breathing , decreased breath sounds at bases HEART: S1 S2 regular rate and rhythm ,no loud murmurs ABDOMEN: Soft , no tenderness EXTREMITIES: No edema feet - Labs CBC & Chem 7: 08/24/21 06:30 08/24/21 06:30 Labs: Abnormal Lab Results - Last 24 Hours (Table) 08/23/21 08/23/21 08/24/21 Range/Units 16:35 20:48 06:30 WBC (3.8-10.6) k/uL Glucose 146 H (70-110) mg/dL POC Glucose (mg/dL) 172 H 146 H (75-99) mg/dL 08/24/21 08/24/21 08/24/21 Range/Units 06:30 06:51 11:09 WBC 11.7 H (3.8-10.6) k/uL Glucose (70-110) mg/dL POC Glucose (mg/dL) 158 H 170 H (75-99) mg/dL Microbiology - Last 24 Hours (Table) 08/19/21 13:35 Blood Culture - Preliminary Blood No Growth after 96 hours 08/19/21 13:50 Blood Culture - Preliminary Blood No Growth after 96 hours Assessment and Plan (1) SIRS (systemic inflammatory response syndrome) Current Visit: Yes Status: Acute Code(s): R65.10 - SIRS OF NON-INFECTIOUS ORIGIN W/O ACUTE ORGAN DYSFUNCTION SNOMED Code(s): 341786513 (2) Leukocytosis Current Visit: No Status: Acute Code(s): D72.829 - ELEVATED WHITE BLOOD CELL COUNT, UNSPECIFIED SNOMED Code(s): 519181114 Plan: 1patient presented to hospital with some mental status changes did have an episode of vomiting with elevated white count concern for possible abdominal source CT abdominal pelvis did not show any acute abnormality, patient white count has normalized culture has been negative the patient is currently being treated with Unasyn possible EGD on Thursday and continue supportive care Time with Patient: Less than 30
[2021-08-25] MEDS: AMPICILLIN-SULBACTAM 3 GM in SODIUM CHLORIDE 0.9% 100 ML IVPB SCH ×4 (06:23→23:22)
[2021-08-25] MEDS: SODIUM CHLORIDE 0.9% 1,000 ML IV SCH ×3 (06:23→22:26)
[2021-08-25 07:03] LABS: Glucose,Whole Blood 164 mg/dL (75-99)
[2021-08-25] MEDS: TAMSULOSIN 0.4 MG CAP.ER.24H PO SCH (07:11)
[2021-08-25] MEDS: INSULIN ASPART (NovoLOG) 100 UNIT/ML VIAL SQ SCH ×4 (07:11→20:32)
[2021-08-25] MEDS: lamoTRIgine 100 MG TAB PO SCH (07:11)
[2021-08-25] MEDS: HEPARIN SODIUM,PORCINE/PF 5,000 UNIT/0.5 ML SYRINGE SQ SCH ×3 (07:11→23:22)
[2021-08-25] MEDS: NON FORMULARY DRUG (Empagliflozin [Jardiance] 25 MG Tablet) PO SCH (07:11)
[2021-08-25] MEDS: SYMBICORT 160-4.5 MCG INHALER INHALATION SCH ×2 (07:27→19:42)
[2021-08-25] MEDS: PANTOPRAZOLE 40 MG/10 ML VIAL IVP SCH (09:36)
--- NOTE | 2021-08-25 10:36 | P.PN ---
Progress Note - Text Progress Note Date: 08/25/21 Patient may still. There are no acute changes. On exam vital signs are stable. Abdomen soft. Patient scheduled for EGD in the a.m.
[2021-08-25 11:37] LABS: Glucose,Whole Blood 125 mg/dL (75-99)
[2021-08-25 16:32] LABS: Glucose,Whole Blood 118 mg/dL (75-99)
[2021-08-25 20:07] LABS: Glucose,Whole Blood 197 mg/dL (75-99)
[2021-08-25] MEDS: TEMAZEPAM 15 MG CAP PO SCH (20:32)
[2021-08-25] MEDS: QUEtiapine 400 MG TAB PO SCH (20:32)
--- NOTE | 2021-08-25 23:13 | P.PN ---
Subjective Progress Note Date: 08/25/21 Principal diagnosis: leukocytosis Patient is a 65-year-old male presented to the hospital with mental status changes some weakness and an episode of vomiting in this patient had noticed to have elevated white count On today's evaluation that is 08/25/2021, the patient denies any fever or chills, the patient is breathing comfortably on room air, the patient denies chest pain shortness of breath or cough , the patient epigastric pain has decreased in intensity no vomiting or diarrhea Objective - Vital Signs Vital signs: Vital Signs Temp 97.4 F L 08/25/21 08:00 Pulse 94 08/25/21 08:00 Resp 18 08/25/21 08:00 BP 159/87 08/25/21 08:00 Pulse Ox 94 L 08/25/21 08:00 Intake & Output 08/24/21 08/25/21 08/25/21 18:59 06:59 18:59 Intake Total 540 300 Balance 540 300 Intake: Oral 540 300 Other: Voiding Method Toilet Toilet # Voids 3 # Bowel Movements 1 2 - Exam GENERAL DESCRIPTION: Elderly male lying in bed in no distress RESPIRATORY SYSTEM: Unlabored breathing , decreased breath sounds at bases HEART: S1 S2 regular rate and rhythm ,no loud murmurs ABDOMEN: Soft , no tenderness EXTREMITIES: No edema feet - Labs CBC & Chem 7: 08/24/21 06:30 08/24/21 06:30 Labs: Abnormal Lab Results - Last 24 Hours (Table) 08/24/21 08/24/21 08/24/21 Range/Units 06:30 16:29 20:14 Glucose 146 H (70-110) mg/dL POC Glucose (mg/dL) 199 H 135 H (75-99) mg/dL 08/25/21 08/25/21 Range/Units 07:02 11:35 Glucose (70-110) mg/dL POC Glucose (mg/dL) 164 H 125 H (75-99) mg/dL Microbiology - Last 24 Hours (Table) 08/19/21 13:35 Blood Culture - Preliminary Blood No Growth after 120 hours 08/19/21 13:50 Blood Culture - Preliminary Blood No Growth after 120 hours Assessment and Plan (1) SIRS (systemic inflammatory response syndrome) Current Visit: Yes Status: Acute Code(s): R65.10 - SIRS OF NON-INFECTIOUS ORIGIN W/O ACUTE ORGAN DYSFUNCTION SNOMED Code(s): 047860582 (2) Leukocytosis Current Visit: No Status: Acute Code(s): D72.829 - ELEVATED WHITE BLOOD CELL COUNT, UNSPECIFIED SNOMED Code(s): 907746033 Plan: 1patient presented to hospital with some mental status changes did have an episode of vomiting with elevated white count concern for possible abdominal source CT abdominal pelvis did not show any acute abnormality, patient white count has normalized culture has been negative the patient to continue with Unasyn awaiting EGD in the AM and possible short course of oral Augmentin on discharge Time with Patient: Less than 30
--- NOTE | 2021-08-26 01:49 | P.PN ---
Subjective Progress Note Date: 08/24/21 Patient is a 64-year-old male with a known history of diabetes type 2 [id number]-pedkosg-tfiyvslvw, osteoarthritis, obstructive sleep apnea not on CPAP at home, COPD, chronic neck pain and shoulder pain, bipolar disorder and currently everyday smoker and occasional marijuana use was brought to the hospital by EMS due to altered mental status. Patient's called EMS. Apparently patient has not been confused and not talking since Thursday. He also did have episodes of nausea and vomiting. Patient usually awake alert oriented x3. He does have a history of bipolar disorder. Patient has not been tracking and mood since admission. Otherwise patient is agitated and walks in the hallway. Patient has been afebrile. No cough or sputum production. Chest x-ray showed there is very bronchial cuffing which could be on the basis of the bronchitis. Correlate clinically. No evidence for focal pneumonia at this time. Patient was given a dose of vancomycin and Zosyn in the ER. On admission blood pressure was 142/111, heart rate 116 and pulse ox 91% on room air. Laboratory showed WBC 26.5 hemoglobin 16.4 platelets 429 neutrophils 22.8 Sodium 135 potassium 3.7 chloride 92 bicarb is 27 BUN 38 and creatinine 1.08 and blood sugar was 365 calcium 10 point Urinalysis is negative for infection UDS is positive for benzodiazepines and marijuana CT head showed age-related atrophic and chronic small vessel ischemic change without acute intracranial process seen at this time. EKG showed sinus tachycardia. 08/20/2021 Patient is seen in follow up today and lethargic but arousable. Per nursing staff, patient has not urinated since last night and retaining. Patient refusing lockwood catheter at this time. Ordered intermittent straight catheter as needed. Patient refusing. production staff worker later reported to patient voiding and flomax was started. Patient continues with an elevated WBC and ID following. Patient is continued on IV antibiotics. Psychiatry consulted and pending. Patient denies chest pain or shortness of breath. Patient denies nausea or vomiting and states he is tolerating diet. CT abdomen pelvis ordered and pending. 08/21/2021 Patient is seen this morning with at the bedside. Patient mentation is much improved. Patient is now eating and tolerating diet with no further reports of nausea or vomiting. Patient does report to acid reflux issues that persists and states has been ongoing for quite some time. Will refer to GI outpatient. Patient was evaluated by psychiatry and home medications resumed. WBC trending down and continued on IV abx with ID following. CT abdomen was negative. Patient denies chest pain or shortness of breath. Patient is afebrile. Patient is voiding with no difficulties. 08/22/2021 Patient is seen and evaluated today in follow up and wbc trending down and is 10 today. Patient is afebrile. Patient is alert and oriented x3. Discussing possible discharge today and patient reports to having difficulty with feeling food is trapped in his esophagus and not passing. Patient reports to having this sensation with liquids now as well. Patient reports to having history of acid reflux and has been taking antacids. General surgery consulted. ID following as well and will discuss further about requiring discharge antibiotics. Patient denies chest pain or shortness of breath. 08/23/2021 Patient is seen in follow up status post esophagram this morning which showed small sliding hiatal hernia, mild borderline moderate diffuse gastritis and moderate distal GERD. Patient was maintained on pepcid and will transition to IV protonix. General surgery and ID following. Patient continues on Zosyn. Patient tolerating clear liquids although reports continued epigastric pain. Patient denies chest pain or shortness of breath. Patient is afebrile. No reports of nausea or vomiting noted. 08/24/2021 Patient is currently sitting in the chair comfortably. Awake alert oriented x3. No complaints of chest pain or shortness breath. Still having epigastric abdom inal discomfort but improving. No fever no chills. No cough or sputum production. No headache or dizziness or lightheadedness. No neck stiffness. No dysuria or hematuria. No other acute overnight issues. Laboratory data showed WBC 11.7 hemoglobin 14.3 and platelets 334 patient is being continued on antibiotics in the form of Unasyn. BUN 12.8 and creatinine 0.9 and calcium 8.9. Patient is scheduled for EGD on Thursday. All medications have been reviewed Objective - Vital Signs Vital signs: Vital Signs Temp 98.7 F 08/24/21 20:00 Pulse 85 08/24/21 20:00 Resp 16 08/24/21 20:00 BP 166/85 08/24/21 20:00 Pulse Ox 99 08/24/21 20:00 Intake & Output 08/24/21 08/24/21 08/25/21 06:59 18:59 06:59 Intake Total 540 Balance 540 Intake: Oral 540 Other: Voiding Method Toilet # Voids 3 3 # Bowel Movements 1 2 - Exam Physical exam: Patient is awake, alert and oriented x 3. thin built, appears older than stated age. HEENT: Normocephalic. Neck is supple. Pupils reactive. Nostrils clear. Oral cavity is moist. Neck: no JVD, carotid bruits, or thyromegaly. CHEST EXAMINATION: Trachea is central. Symmetrical expansion. Lung ohara clear to auscultation and percussion. CARDIAC: Normal S1, S2 with no gallops. No murmurs ABDOMEN: Soft. Bowel sounds normal. No organomegaly. No abdominal bruits. Extremities: reveal no edema. No clubbing or cyanosis Neurologically awake, alert x3. With well-coordinated movements. No gross focal deficits noted Skin: No rash or skin lesions. Psychiatric: cooperative. Musculoskeletal: No joint swelling or deformity. Normal range of motion. - Labs CBC & Chem 7: 08/24/21 06:30 08/24/21 06:30 Labs: Abnormal Lab Results - Last 24 Hours (Table) 08/24/21 08/24/21 08/24/21 Range/Units 06:30 06:30 06:51 WBC 11.7 H (3.8-10.6) k/uL Glucose 146 H (70-110) mg/dL POC Glucose (mg/dL) 158 H (75-99) mg/dL 08/24/21 08/24/21 08/24/21 Range/Units 11:09 16:29 20:14 WBC (3.8-10.6) k/uL Glucose (70-110) mg/dL POC Glucose (mg/dL) 170 H 199 H 135 H (75-99) mg/dL Microbiology - Last 24 Hours (Table) 08/19/21 13:35 Blood Culture - Preliminary Blood No Growth after 120 hours 08/19/21 13:50 Blood Culture - Preliminary Blood No Growth after 120 hours Assessment and Plan Assessment: Assessment: Altered mental status rule out metabolic, toxic, infectious etiology. resolved SIRS with significant leukocytosis and tachycardia. Chest x-ray showed peribronchial cuffing no evidence of pneumonia. UA negative for infection. ct abd no acute process Epigastric pain Small sliding hiatal hernia, mild borderline moderate diffuse gastritis and moderate distal GERD noted on upper GI Possible metabolic and toxic encephalopathy, improved Hypovolemic hyponatremia secondary to vomiting Hyperglycemia with uncontrolled diabetes type 2 [id number] Severe hypomagnesemia, now hypermagnesemia Obstructive sleep apnea not on CPAP at home Bipolar disorder Currently everyday smoker COPD not in exacerbation UDS positive for benzodiazepines and marijuana DVT prophylaxis with heparin subcu Full code Plan: Patient will be continued on IV hydration with normal saline and maintained on IV antibiotics with ID following. cultures are negative. WBC trending down psychiatry following and resumed home medications. Patient having some difficulty mid-epigastric discomfort and intolerance to food and the same sensation with liquids. General surgery following and patient underwent esophagram revealing small sliding hiatal hernia, mild borderline moderate diffuse gastritis and moderate distal GERD. Continue clear liquids per surgery Transition pepcid to IV protonix EGD scheduled for 08/26/2021 Mentation much improved Continue sliding scale and accuchecks achs for better blood sugar control. Continue to follow closely. Prognosis is guarded at this time.
--- NOTE | 2021-08-26 01:53 | P.PN ---
Subjective Progress Note Date: 08/25/21 Patient is a 64-year-old male with a known history of diabetes type 2 imi-wrrgmas-exjygxgre, osteoarthritis, obstructive sleep apnea not on CPAP at home, COPD, chronic neck pain and shoulder pain, bipolar disorder and currently everyday smoker and occasional marijuana use was brought to the hospital by EMS due to altered mental status. Patient's called EMS. Apparently patient has not been confused and not talking since Thursday. He also did have episodes of nausea and vomiting. Patient usually awake alert oriented x3. He does have a history of bipolar disorder. Patient has not been tracking and mood since admission. Otherwise patient is agitated and walks in the hallway. Patient has been afebrile. No cough or sputum production. Chest x-ray showed there is very bronchial cuffing which could be on the basis of the bronchitis. Correlate clinically. No evidence for focal pneumonia at this time. Patient was given a dose of vancomycin and Zosyn in the ER. On admission blood pressure was 142/111, heart rate 116 and pulse ox 91% on room air. Laboratory showed WBC 26.5 hemoglobin 16.4 platelets 429 neutrophils 22.8 Sodium 135 potassium 3.7 chloride 92 bicarb is 27 BUN 38 and creatinine 1.08 and blood sugar was 365 calcium 10 point Urinalysis is negative for infection UDS is positive for benzodiazepines and marijuana CT head showed age-related atrophic and chronic small vessel ischemic change without acute intracranial process seen at this time. EKG showed sinus tachycardia. 08/20/2021 Patient is seen in follow up today and lethargic but arousable. Per nursing staff, patient has not urinated since last night and retaining. Patient refusing lockwood catheter at this time. Ordered intermittent straight catheter as needed. Patient refusing. staff internist office based only later reported to patient voiding and flomax was started. Patient continues with an elevated WBC and ID following. Patient is continued on IV antibiotics. Psychiatry consulted and pending. Patient denies chest pain or shortness of breath. Patient denies nausea or vomiting and states he is tolerating diet. CT abdomen pelvis ordered and pending. 08/21/2021 Patient is seen this morning with at the bedside. Patient mentation is much improved. Patient is now eating and tolerating diet with no further reports of nausea or vomiting. Patient does report to acid reflux issues that persists and states has been ongoing for quite some time. Will refer to GI outpatient. Patient was evaluated by psychiatry and home medications resumed. WBC trending down and continued on IV abx with ID following. CT abdomen was negative. Patient denies chest pain or shortness of breath. Patient is afebrile. Patient is voiding with no difficulties. 08/22/2021 Patient is seen and evaluated today in follow up and wbc trending down and is 10 today. Patient is afebrile. Patient is alert and oriented x3. Discussing possible discharge today and patient reports to having difficulty with feeling food is trapped in his esophagus and not passing. Patient reports to having this sensation with liquids now as well. Patient reports to having history of acid reflux and has been taking antacids. General surgery consulted. ID following as well and will discuss further about requiring discharge antibiotics. Patient denies chest pain or shortness of breath. 08/23/2021 Patient is seen in follow up status post esophagram this morning which showed small sliding hiatal hernia, mild borderline moderate diffuse gastritis and moderate distal GERD. Patient was maintained on pepcid and will transition to IV protonix. General surgery and ID following. Patient continues on Zosyn. Patient tolerating clear liquids although reports continued epigastric pain. Patient denies chest pain or shortness of breath. Patient is afebrile. No reports of nausea or vomiting noted. 08/24/2021 Patient is currently sitting in the chair comfortably. Awake alert oriented x3. No complaints of chest pain or shortness breath. Still having epigastric abdom inal discomfort but improving. No fever no chills. No cough or sputum production. No headache or dizziness or lightheadedness. No neck stiffness. No dysuria or hematuria. No other acute overnight issues. Laboratory data showed WBC 11.7 hemoglobin 14.3 and platelets 334 patient is being continued on antibiotics in the form of Unasyn. BUN 12.8 and creatinine 0.9 and calcium 8.9. Patient is scheduled for EGD on Thursday. 08/25/2021 Patient is currently resting in the bed. Awake alert and oriented x3. No cough or sputum production. Denies any complaints of dysuria or hematuria. Mild abd ominal epigastric discomfort. No nausea or vomiting. Tolerating oral diet. Patient is scheduled for EGD tomorrow. Otherwise patient is on antibiotics in the form of Unasyn. Continue on psychiatric medications. Leukocytosis is improving. Follow-up CBC and BMP tomorrow. All medications have been reviewed Objective - Vital Signs Vital signs: Vital Signs Temp 98.3 F 08/25/21 14:00 Pulse 94 08/25/21 14:00 Resp 18 08/25/21 14:00 BP 157/78 08/25/21 14:00 Pulse Ox 100 08/25/21 14:00 Intake & Output 08/24/21 08/25/21 08/25/21 18:59 06:59 18:59 Intake Total 540 300 Balance 540 300 Intake: Oral 540 300 Other: Voiding Method Toilet Toilet # Voids 3 4 # Bowel Movements 1 2 - Exam Physical exam: Patient is awake, alert and oriented x 3. thin built, appears older than stated age. HEENT: Normocephalic. Neck is supple. Pupils reactive. Nostrils clear. Oral cavity is moist. Neck: no JVD, carotid bruits, or thyromegaly. CHEST EXAMINATION: Trachea is central. Symmetrical expansion. Lung ohara clear to auscultation and percussion. CARDIAC: Normal S1, S2 with no gallops. No murmurs ABDOMEN: Soft. Bowel sounds normal. No organomegaly. No abdominal bruits. Extremities: reveal no edema. No clubbing or cyanosis Neurologically awake, alert x3. With well-coordinated movements. No gross focal deficits noted Skin: No rash or skin lesions. Psychiatric: cooperative. Musculoskeletal: No joint swelling or deformity. Normal range of motion. - Labs CBC & Chem 7: 08/24/21 06:30 08/24/21 06:30 Labs: Abnormal Lab Results - Last 24 Hours (Table) 08/24/21 08/25/21 08/25/21 Range/Units 20:14 07:02 11:35 POC Glucose (mg/dL) 135 H 164 H 125 H (75-99) mg/dL 08/25/21 Range/Units 16:28 POC Glucose (mg/dL) 118 H (75-99) mg/dL Microbiology - Last 24 Hours (Table) 08/19/21 13:35 Blood Culture - Final Blood No Growth after 144 hours 08/19/21 13:50 Blood Culture - Final Blood No Growth after 144 hours Assessment and Plan Assessment: Assessment: Altered mental status rule out metabolic, toxic, infectious etiology. resolved SIRS with significant leukocytosis and tachycardia. Chest x-ray showed peribronchial cuffing no evidence of pneumonia. UA negative for infection. ct abd no acute process Epigastric pain Small sliding hiatal hernia, mild borderline moderate diffuse gastritis and moderate distal GERD noted on upper GI Possible metabolic and toxic encephalopathy, improved Hypovolemic hyponatremia secondary to vomiting Hyperglycemia with uncontrolled diabetes type 2 sul-rmodsyq-penbngspk Severe hypomagnesemia, now hypermagnesemia Obstructive sleep apnea not on CPAP at home Bipolar disorder Currently everyday smoker COPD not in exacerbation UDS positive for benzodiazepines and marijuana DVT prophylaxis with heparin subcu Full code Plan: Patient will be continued on IV hydration with normal saline and maintained on IV antibiotics with ID following. cultures are negative. WBC trending down psychiatry following and resumed home medications. Patient having some difficulty mid-epigastric discomfort and intolerance to food and the same sensation with liquids. General surgery following and patient underwent esophagram revealing small sliding hiatal hernia, mild borderline moderate diffuse gastritis and moderate distal GERD. Continue clear liquids per surgery Transition pepcid to IV protonix EGD scheduled for 08/26/2021 Mentation much improved Continue sliding scale and accuchecks achs for better blood sugar control. Continue to follow closely. Prognosis is guarded at this time.
[2021-08-26] MEDS: AMPICILLIN-SULBACTAM 3 GM in SODIUM CHLORIDE 0.9% 100 ML IVPB SCH ×2 (05:45→11:46)
[2021-08-26 07:03] LABS: Glucose,Whole Blood 133 mg/dL (75-99)
[2021-08-26] MEDS: SYMBICORT 160-4.5 MCG INHALER INHALATION SCH (07:12)
[2021-08-26] MEDS: NON FORMULARY DRUG (Empagliflozin [Jardiance] 25 MG Tablet) PO SCH (07:29)
[2021-08-26] MEDS: lamoTRIgine 100 MG TAB PO SCH (07:54)
[2021-08-26] MEDS: TAMSULOSIN 0.4 MG CAP.ER.24H PO SCH (07:54)
[2021-08-26] MEDS: HEPARIN SODIUM,PORCINE/PF 5,000 UNIT/0.5 ML SYRINGE SQ SCH (07:54)
[2021-08-26] MEDS: INSULIN ASPART (NovoLOG) 100 UNIT/ML VIAL SQ SCH ×2 (07:55→11:45)
[2021-08-26] MEDS: PANTOPRAZOLE 40 MG/10 ML VIAL IVP SCH (07:55)
[2021-08-26] MEDS: SODIUM CHLORIDE 0.9% 1,000 ML IV SCH (07:56)
[2021-08-26 09:05] LABS: Basophils # (A) 0.06 X 10*3/uL (0.00-0.10); Basophils % (A) 0.6 %; Eosinophils # (A) 0.41 X 10*3/uL (0.04-0.35); Eosinophils % (A) 4.2 %; HCT 37.5 % (39.6-50.0); HGB 12.6 g/dL (13.0-17.0); Immature Grans, Automated 0.2 %; Lymphocytes # (A) 3.08 X 10*3/uL (0.90-5.00); Lymphocytes % (A) 31.5 %; MCH 30.4 pg (27.0-32.0); MCHC 33.6 g/dL (32.0-37.0); MCV 90.4 fL (80.0-97.0); Mean Platelet Volume 9.3 fL (9.5-12.2); Monocytes % (A) 12.3 %; NRBC Per 100 WBC 0 /100 WBCS (0.0-0.0); Neutrophils # (A) 5.01 X 10*3/uL (1.80-7.70); Neutrophils % (A) 51.2 %; Platelet Count 334 X 10*3/uL (140-440); RBC 4.15 X 10*6/uL (4.40-5.60); RDW 12.1 % (11.5-14.5); WBC 9.78 X 10*3/uL (4.50-10.00)
[2021-08-26 09:22] LABS: African American GFR (CKD) 108.6 (60.0-200.0); Anion Gap 10.4 mmol/L (10.00-18.00); BUN/Creat Ratio 7.75 Ratio (12.00-20.00); Blood Urea Nitrogen 6.2 mg/dL (9.0-27.0); Calcium 8.8 mg/dL (8.7-10.3); Carbon Dioxide 24.6 mmol/L (20.0-27.5); Non-African American GFR(CKD) 93.7 (60.0-200.0)
[2021-08-26 11:34] LABS: Glucose,Whole Blood 115 mg/dL (75-99)
[2021-08-26 13:30] VITALS: BMI 25.0
[2021-08-26 14:55] VITALS: BP 128/78; PULSE 88; RESP 20; TEMP 98.7
[2021-08-27] MEDS ORDERED: PANTOPRAZOLE 40 MG TABLET PO SCH (07:30)
--- NOTE | 2021-08-27 15:11 | P.DS ---
Providers Date of admission: 08/19/21 13:08 Expected date of discharge: 08/26/21 Attending physician: Therese Saucedo Consults: 08/19/21 13:07 Consult Physician Routine Consulting Provider: Francisco Benson Consult Reason/Comments: history of bipolar depression Do you want consulting provider notified?: Already Contacted Consult Physician Routine Consulting Provider: Dino Dennis Consult Reason/Comments: SIRS Do you want consulting provider notified?: Yes 08/22/21 11:13 Consult Physician Urgent Consulting Provider: Deven Alvarado Consult Reason/Comments: epigastric pain, difficulty swallowing Do you want consulting provider notified?: Yes Primary care physician: Tom Vasquez Hospital Course: Final diagnosis Altered mental status rule out metabolic, toxic, infectious etiology. resolved SIRS with significant leukocytosis and tachycardia. Chest x-ray showed peribronchial cuffing no evidence of pneumonia. UA negative for infection. ct abd no acute process Epigastric pain Small sliding hiatal hernia, mild borderline moderate diffuse gastritis and moderate distal GERD noted on upper GI Possible metabolic and toxic encephalopathy, improved Hypovolemic hyponatremia secondary to vomiting Hyperglycemia with uncontrolled diabetes type 2 [id number] Severe hypomagnesemia, now hypermagnesemia Obstructive sleep apnea not on CPAP at home Bipolar disorder Currently everyday smoker COPD not in exacerbation UDS positive for benzodiazepines and marijuana DVT prophylaxis with heparin subcu Full code Discharge disposition Patient is being discharged in a stable condition with guarded prognosis to home. Patient will follow-up with Dr. Vasquez in the outpatient setting upon discharge. Patient is to follow-up with surgery for possible outpatient EGD and/or GI and resources provided. Patient will continue on oral Augmentin for the next 5 days to complete the course and patient will also continue on omeprazole. Total time taken is greater than 35 minutes. Hospital course This is a 65-year-old male who was recently admitted with abdominal pain, nausea and vomiting and altered mental status and was being closely monitored. Most likely metabolic encephalopathy and dehydration status post multiple episodes of vomiting. Patient was evaluated by psychiatry and mentation significantly improved and will continue to follow with his psychiatrist in the outpatient setting. Patient also having some epigastric discomfort and pain with meals including fluids and was evaluated by surgery recommending esophagram which showed some mild narrowing and also suggested EGD that was tentatively scheduled for today. Due to emergent surgeries the procedure was pushed back to later in the afternoon and patient would like to follow-up outpatient with his primary care provider and would not prefer to follow-up with surgery. Resources provided and patient encouraged to follow-up with Dr. Delgado in the outpatient setting. Patient will continue a short course of oral Augmentin per infectious disease recommendations for the next 5 days to complete the course. Currently no reports of chest pain, shortness of breath, or palpitations. Patient is afebrile. No reports of nausea or vomiting and patient is tolerating diet. Patient will be discharged home today. Physical exam: Patient is awake, alert and oriented x 3. thin built, appears older than stated age. HEENT: Normocephalic. Neck is supple. Pupils reactive. Nostrils clear. Oral cavity is moist. Neck: no JVD, carotid bruits, or thyromegaly. CHEST EXAMINATION: Trachea is central. Symmetrical expansion. Lung ohara clear to auscultation and percussion. CARDIAC: Normal S1, S2 with no gallops. No murmurs ABDOMEN: Soft. Bowel sounds normal. No organomegaly. No abdominal bruits. Extremities: reveal no edema. No clubbing or cyanosis Neurologically awake, alert x3. With well-coordinated movements. No gross focal deficits noted Skin: No rash or skin lesions. Psychiatric: cooperative. Musculoskeletal: No joint swelling or deformity. Normal range of motion. Please refer to medication reconciliation sheet for a list of medications. The impression and plan of care has been dictated by Shonda Sumner, Nurse Practitioner as directed. Dr. Ashish MD I have performed a history and examination and MDM of this patient, discussed the same with the dictator, and agree with the dictator's assessment and plan as written ,documented as a scribe. Based on total visit time, I have performed more than 50% of the visit. Patient Condition at Discharge: Stable Plan - Discharge Summary New Discharge Prescriptions: New Tamsulosin [Flomax] 0.4 mg PO PC-BRKFST 30 Days #30 tab Omeprazole 40 mg PO DAILY 30 Days #30 cap Acetaminophen Tab [Tylenol] 650 mg PO Q6HR PRN tab PRN Reason: Mild Pain Or Fever > 100.5 Amoxic-Pot Clav 875-125Mg [Augmentin 875-125] 1 tab PO Q12HR 5 Days #10 tab Continue clomiPRAMINE HCL 225 mg PO DAILY lamoTRIgine [LaMICtal] 100 mg PO DAILY Ibuprofen [Motrin] 800 mg PO Q8H PRN PRN Reason: Pain QUEtiapine [SEROquel] 400 mg PO HS 30 Days #30 tab metFORMIN HCL ER [Glucophage XR] 500 mg PO BID Budesonide/Formoterol Fumarate [Symbicort 160-4.5 Mcg Inhaler] 2 puff INHALATION RT-BID Eszopiclone [Lunesta] 3 mg PO HS Empagliflozin [Jardiance] 25 mg PO DAILY Discharge Medication List clomiPRAMINE HCL 225 mg PO DAILY 12/03/15 [History] lamoTRIgine [LaMICtal] 100 mg PO DAILY 09/08/16 [History] Ibuprofen [Motrin] 800 mg PO Q8H PRN 01/13/18 [History] Budesonide/Formoterol Fumarate [Symbicort 160-4.5 Mcg Inhaler] 2 puff INHALATION RT-BID 08/19/21 [History] Empagliflozin [Jardiance] 25 mg PO DAILY 08/19/21 [History] Eszopiclone [Lunesta] 3 mg PO HS 08/19/21 [History] metFORMIN HCL ER [Glucophage XR] 500 mg PO BID 08/19/21 [History] Acetaminophen Tab [Tylenol] 650 mg PO Q6HR PRN tab 08/26/21 [Rx] Amoxic-Pot Clav 875-125Mg [Augmentin 875-125] 1 tab PO Q12HR 5 Days #10 tab 08/26/21 [Rx] Omeprazole 40 mg PO DAILY 30 Days #30 cap 08/26/21 [Rx] QUEtiapine [SEROquel] 400 mg PO HS 30 Days #30 tab 08/26/21 [Rx] Tamsulosin [Flomax] 0.4 mg PO PC-BRKFST 30 Days #30 tab 08/26/21 [Rx] Follow up Appointment(s)/Referral(s): Tom Vasquez DO [Primary Care Provider] - 1-2 days Deven Alvarado MD [STAFF PHYSICIAN] - 08/29/21 Activity/Diet/Wound Care/Special Instructions: Activity Limited until follow-up Follow-up with primary care provider on discharge Follow-up with general surgery for outpatient EGD Continue taking medications as prescribed Complete antibiotic course continue on full liquid diet until follow-up with surgery Discharge Disposition: HOME SELF-CARE
--- NOTE | 2021-09-02 22:49 | P.PN ---
Subjective Progress Note Date: 08/26/21 Principal diagnosis: leukocytosis Patient is a 65-year-old male presented to the hospital with mental status changes some weakness and an episode of vomiting in this patient had noticed to have elevated white count On today's evaluation that is 08/26/2021, the patient remains to be afebrile, the patient is breathing comfortably on room air, the patient denies chest pain shortness of breath or cough , the patient epigastric pain has decreased in intensity and the patient denies vomiting or diarrhea Objective - Vital Signs Vital signs: Vital Signs Temp 98.0 F 08/26/21 07:48 Pulse 86 08/26/21 07:48 Resp 16 08/26/21 07:48 BP 149/85 08/26/21 07:48 Pulse Ox 96 08/26/21 07:48 Intake & Output 08/25/21 08/26/21 08/26/21 18:59 06:59 18:59 Weight 72.575 kg Other: Voiding Method Toilet # Voids 4 3 # Bowel Movements 2 - Exam GENERAL DESCRIPTION: Elderly male lying in bed in no distress RESPIRATORY SYSTEM: Unlabored breathing , decreased breath sounds at bases HEART: S1 S2 regular rate and rhythm ,no loud murmurs ABDOMEN: Soft , no tenderness EXTREMITIES: No edema feet - Labs CBC & Chem 7: 08/26/21 04:26 08/26/21 04:26 Labs: Abnormal Lab Results - Last 24 Hours (Table) 08/25/21 08/25/21 08/26/21 Range/Units 16:28 20:06 04:26 RBC 4.15 L (4.40-5.60) X 10*6/uL Hgb 12.6 L (13.0-17.0) g/dL Hct 37.5 L (39.6-50.0) % MPV 9.3 L (9.5-12.2) fL Monocytes # 1.20 H (0.20-1.00) X 10*3/uL Eosinophils # 0.41 H (0.04-0.35) X 10*3/uL BUN (9.0-27.0) mg/dL BUN/Creatinine Ratio (12.00-20.00) Ratio POC Glucose (mg/dL) 118 H 197 H (75-99) mg/dL 03/08/26/21 08/26/21 Range/Units 04:26 07:01 11:33 RBC (4.40-5.60) X 10*6/uL Hgb (13.0-17.0) g/dL Hct (39.6-50.0) % MPV (9.5-12.2) fL Monocytes # (0.20-1.00) X 10*3/uL Eosinophils # (0.04-0.35) X 10*3/uL BUN 6.2 L (9.0-27.0) mg/dL BUN/Creatinine Ratio 7.75 L (12.00-20.00) Ratio POC Glucose (mg/dL) 133 H 115 H (75-99) mg/dL Microbiology - Last 24 Hours (Table) 08/19/21 13:35 Blood Culture - Final Blood No Growth after 144 hours 08/19/21 13:50 Blood Culture - Final Blood No Growth after 144 hours Assessment and Plan (1) SIRS (systemic inflammatory response syndrome) Status: Acute Code(s): R65.10 - SIRS OF NON-INFECTIOUS ORIGIN W/O ACUTE ORGAN DYSFUNCTION SNOMED Code(s): 850228168 (2) Leukocytosis Status: Acute Code(s): D72.829 - ELEVATED WHITE BLOOD CELL COUNT, UNSPECIFIED SNOMED Code(s): 855750253 Plan: 1patient presented to hospital with some mental status changes did have an episode of vomiting with elevated white count concern for possible abdominal source CT abdominal pelvis did not show any acute abnormality, patient white count has normalized culture has been negative the patient seem to have shown clinical improvement and will finish therapy with short course of oral Augmentin on discharge Time with Patient: Less than 30
== END 2021-08-26 15:19 | disposition home or self-care (01) | DRG 92 ==
LOC: EC 07:40 → 4SSUR 13:08
PROVIDERS: ADMIT Internal Medicine; ATTEND Internal Medicine
DX: G92.8 Other toxic encephalopathy (principal); R65.10 Systemic inflammatory response syndrome (SIRS) of non-infectious origin without acute organ dysfunction; E87.1 Hypo-osmolality and hyponatremia; E83.41 Hypermagnesemia; E11.65 Type 2 diabetes mellitus with hyperglycemia; D72.829 Elevated white blood cell count, unspecified; J44.9 Chronic obstructive pulmonary disease, unspecified; F31.9 Bipolar disorder, unspecified; J40 Bronchitis, not specified as acute or chronic; E83.42 Hypomagnesemia; E86.1 Hypovolemia; E86.0 Dehydration; G47.33 Obstructive sleep apnea (adult) (pediatric); K29.70 Gastritis, unspecified, without bleeding; K44.9 Diaphragmatic hernia without obstruction or gangrene; R13.10 Dysphagia, unspecified; K21.9 Gastro-esophageal reflux disease without esophagitis; F41.9 Anxiety disorder, unspecified; M54.2 Cervicalgia; M54.9 Dorsalgia, unspecified; M25.519 Pain in unspecified shoulder; M19.90 Unspecified osteoarthritis, unspecified site; F17.210 Nicotine dependence, cigarettes, uncomplicated; Z71.6 Tobacco abuse counseling; Z79.51 Long term (current) use of inhaled steroids; Z79.84 Long term (current) use of oral hypoglycemic drugs; Z79.899 Other long term (current) drug therapy; Z86.79 Personal history of other diseases of the circulatory system; Z98.890 Other specified postprocedural states; Z71.3 Dietary counseling and surveillance
CPT/HCPCS: 36415; 70450; 71045; 74177; 74240; 80048; 80053; 80306; 81001; 82140; 83036; 83735; 84145; 84439; 84443; 84484; 85025; 85610; 85730; 86140; 87040; 93005; 94640; 96365; 96366; 96367; 96372; 96375; 96376; 99285

== ENCOUNTER 2021-09-30 12:12 | Inpatient (IN) | payer MEDICARE, BC ==
--- NOTE | 2021-09-30 12:43 | ED ---
General Adult HPI - General Chief complaint: Neuro Symptoms/Deficit Stated complaint: neuro deficit Time Seen by Provider: 09/30/21 12:42 Source: patient, family, RN notes reviewed Mode of arrival: wheelchair Limitations: no limitations - History of Present Illness Initial comments: Patient is a pleasant [age]-year-old male presenting to the emergency department with concern for left-sided weakness. Onset of symptoms was 3 days ago. Symptoms have been steady but mild since that time. did notice some slurred speech. was out of town and returned and noticed mild left facial droop. Patient states he has been a little bit lightheaded. Patient has noticed some mild coordination problems with his left arm. Patient has also noticed some difficulty with dragging his left leg. No history of similar symptoms previously. No headache. No confusion. - Related Data Home Medications Medication Instructions Recorded Confirmed clomiPRAMINE HCL 225 mg PO DAILY 12/03/15 09/30/21 lamoTRIgine [LaMICtal] 100 mg PO DAILY 09/08/16 09/30/21 Ibuprofen [Motrin] 800 mg PO Q8H PRN 01/13/18 09/30/21 Budesonide/Formoterol Fumarate 2 puff INHALATION RT-BID 08/19/21 09/30/21 [Symbicort 160-4.5 Mcg Inhaler] Empagliflozin [Jardiance] 25 mg PO DAILY 08/19/21 09/30/21 Eszopiclone [Lunesta] 3 mg PO HS 08/19/21 09/30/21 metFORMIN HCL ER [Glucophage XR] 1,000 mg PO BID 08/19/21 09/30/21 Previous Rx's Medication Instructions Recorded Acetaminophen Tab [Tylenol] 650 mg PO Q6HR PRN tab 08/26/21 Omeprazole 40 mg PO DAILY 30 Days #30 cap 08/26/21 QUEtiapine [SEROquel] 400 mg PO HS 30 Days #30 tab 08/26/21 Allergies Allergy/AdvReac Type Severity Reaction Status Date / Time No Known Allergies Allergy Verified 09/30/21 12:15 Review of Systems ROS Statement: Those systems with pertinent positive or pertinent negative responses have been documented in the HPI. ROS Other: All systems not noted in ROS Statement are negative. Constitutional: Denies: fever Eyes: Denies: eye pain ENT: Denies: ear pain Respiratory: Denies: cough Cardiovascular: Denies: chest pain Endocrine: Denies: fatigue Gastrointestinal: Denies: abdominal pain Genitourinary: Denies: dysuria Musculoskeletal: Denies: back pain Skin: Denies: rash Neurological: Reports: as per HPI, weakness. Denies: headache, numbness, paresthesias, confusion Past Medical History Past Medical History: Diabetes Mellitus, Osteoarthritis (OA), Sleep Apnea/CPAP/BIPAP Additional Past Medical History / Comment(s): neck pain numbness left shoulder, hx rapid heart rate,,no cpap,DIABETIC- DIET CONTROLLED with metformin History of Any Multi-Drug Resistant Organisms: None Reported Past Surgical History: Cardiac Ablation Additional Past Surgical History / Comment(s): colonoscopy, PAIN CLINIC INJECTION Past Anesthesia/Blood Transfusion Reactions: No Reported Reaction Past Psychological History: Bipolar Smoking Status: Current every day smoker Past Alcohol Use History: Occasional Past Drug Use History: Marijuana - Past Family History Mother Family Medical History: No Reported History General Exam Limitations: no limitations General appearance: alert, in no apparent distress Head exam: Present: normocephalic Eye exam: Present: normal appearance, PERRL, EOMI ENT exam: Present: normal oropharynx Neck exam: Present: normal inspection Respiratory exam: Present: normal lung sounds bilaterally Cardiovascular Exam: Present: regular rate, normal rhythm GI/Abdominal exam: Present: soft, normal bowel sounds. Absent: tenderness Extremities exam: Present: normal inspection Neurological exam: Present: alert, CN II-XII intact (Except for mild left facial droop.) Expanded Neurological exam: Present: protecting the airway Patient oriented to: Present: person, place, time Speech: Present: fluid speech Cranial nerves: EOM's Intact: Normal, Facial Palsy with Forehead Movement: Abnormal Left (Mild left facial droop sparing the forehead) Sensory exam: Upper Extremity Light Touch: Normal, Lower Extremity Light Touch: Normal Motor strength exam: RUE: 5, LUE: 4, RLE: 5, LLE: 4 Eye Response: (4) open spontaneously Motor Response: (6) obeys commands Verbal Response: (5) oriented Psychiatric exam: Present: normal affect, normal mood Skin exam: Present: normal color Course Vital Signs 09/30/21 09/30/21 12:15 14:00 Temperature 97.9 F Pulse Rate 103 H 86 Respiratory 18 18 Rate Blood Pressure 127/76 142/84 O2 Sat by Pulse 97 98 Oximetry EKG Findings - EKG Comments: EKG Findings:: Sinus rhythm rate 92. AK 135. QRS 118. QT 360. QTC 490 left axis. LVH criteria. No acute ST change. Medical Decision Making - Medical Decision Making Patient reevaluated. Patient and family updated. Dr. Ferrer paged for admission covering for Dr. Vasquez. - Radiology Data Radiology results: report reviewed (CT brain shows atrophy. No acute process.), image reviewed (Chest x-ray shows no acute process) Disposition Clinical Impression: Cerebrovascular accident (CVA) Disposition: ADMITTED IP TO THIS HOSP Is patient prescribed a controlled substance at d/c from ED?: No Referrals: Tom Vasquez DO [Primary Care Provider] - 1-2 days Time of Disposition: 14:11
--- NOTE | 2021-09-30 13:24 | CT ---
EXAMINATION TYPE: CT brain wo con for TPA DATE OF EXAM: 09/30/2021 COMPARISON: 08/19/2021 HISTORY: slurred speech CT DLP: 1129.[address] of the brain was performed. The ventricles, basal cisterns and sulci overlying the cerebral convexities demonstrate mild enlargem ent. Small area of remote insult high right frontal parietal region. There is no evidence for intracranial hemorrhage or sulcal effacement. There is decreased attenuation about the periventricular white matter and deep white matter of both c erebral hemispheres, compatible with chronic small vessel ischemia. Differential diagnosis does inclu de demyelination. No mass effects are seen.No midline shift. Osseous calvarium is intact. If symptoms persist consider MRI. IMPRESSION: 1. Age related atrophic and chronic small vessel ischemic change without acute intracranial process s een at this time.
--- NOTE | 2021-09-30 13:45 | XR ---
EXAMINATION TYPE: XR chest 2V DATE OF EXAM: 09/30/2021 COMPARISON: 08/19/2021 INDICATION: Altered mental status TECHNIQUE: Frontal and lateral views of the chest are obtained. FINDINGS: The heart size is normal. The pulmonary vasculature is normal. The lungs are clear. Spondylosis thoracic spine IMPRESSION: 1. No acute pulmonary process.
[2021-09-30] MEDS ORDERED: ASPIRIN 325 MG TAB PO STA (14:11)
[2021-09-30 14:31] LABS: INR 0.9 (<1.2); Prothrombin Time 9.8 sec (9.0-12.0)
[2021-09-30 14:33] LABS: ALT 26 U/L (4-49); AST 22 U/L (17-59); African American GFR (CKD) >90 (>60 ml/min/1.73 sqM); Albumin 4.4 g/dL (3.5-5.0); Alkaline Phosphatase 93 U/L (38-126); Anion Gap 11 mmol/L; Blood Urea Nitrogen 21 mg/dL (9-20); Calcium 9.5 mg/dL (8.4-10.2); Carbon Dioxide 23 mmol/L (22-30); Chloride 105 mmol/L (98-107); Glucose 116 mg/dL (74-99); Non-African American GFR(CKD) >90 (>60 ml/min/1.73 sqM); Potassium 4.4 mmol/L (3.5-5.1); Sodium 139 mmol/L (137-145); Total Bilirubin 0.6 mg/dL (0.2-1.3); Total Protein 7.6 g/dL (6.3-8.2)
[2021-09-30 14:45] LABS: Basophils % (A) 1 %; Eosinophils % (A) 5 %; HCT 45.2 % (39.0-53.0); HGB 15.7 gm/dL (13.0-17.5); Lymphocytes # (A) 2.6 k/uL (1.0-4.8); Lymphocytes % (A) 23 %; MCH 31.7 pg (25.0-35.0); MCHC 34.6 g/dL (31.0-37.0); MCV 91.6 fL (80.0-100.0); Mean Platelet Volume 6.9; Monocytes % (A) 5 %; Neutrophils # (A) 7.2 k/uL (1.3-7.7); Neutrophils % (A) 64 %; Platelet Count 426 k/uL (150-450); RBC 4.94 m/uL (4.30-5.90); RDW 13.7 % (11.5-15.5); WBC 11.3 k/uL (3.8-10.6)
[2021-09-30 14:46] LABS: Basophils # (A) 0.1 k/uL (0-0.2); Eosinophils # (A) 0.5 k/uL (0-0.7); Monocytes # (A) 0.6 k/uL (0-1.0)
[2021-09-30] MEDS: SODIUM CHLORIDE 0.9% 1,000 ML IV SCH (15:21)
--- NOTE | 2021-09-30 17:09 | P.CNNES ---
History of Present Illness Consult date: 09/30/21 Requesting physician: Kamar Hinkle Reason for Consult: cva History of Present Illness: This is a 65-year-old gentleman with medical history of diabetes mellitus, sleep apnea who presented emergency department on 09/30/2021 for left-sided weakness. Patient onset of symptoms began 3 days ago. Patient noticed left sided we akness. He felt he is dragging his left leg and had coordination issues with left hand. His was out of town but when she got back home she noticed her was slurring his speech. He denies of any numbness on left side, visual disturbance, headache. Denies of stroke or TIA in past. He denies being on any antiplatelets or anticoagulation. He does smoke 1/2PDD. Denies illciit drug us e. Socially drinks alcohol. I Some other workup in the hospital consisted of: CT of the head is reported as age-related atrophy and chronic small vessel ischemic change without acute intracranial process seen at this time. I personally could not review the CT of the head since there is no image for review. Initial white blood cell is 11.3 thousand otherwise rest of CBC with differential is unremarkable Chemistry panel and as well as PT and, PTT and INR is within normal limits No IV tpa since outside window and risk outweigh benefit. Review of Systems Review of system: The 12 point system was reviewed and apparent positive and negative per HPI. Past Medical History Past Medical History: Diabetes Mellitus, Osteoarthritis (OA), Sleep Apnea/CPAP/BIPAP Additional Past Medical History / Comment(s): neck pain numbness left shoulder, hx rapid heart rate,,no cpap,DIABETIC- DIET CONTROLLED with metformin History of Any Multi-Drug Resistant Organisms: None Reported Past Surgical History: Cardiac Ablation Additional Past Surgical History / Comment(s): colonoscopy, PAIN CLINIC INJECTION Past Anesthesia/Blood Transfusion Reactions: No Reported Reaction Past Psychological History: Bipolar Smoking Status: Current every day smoker Past Alcohol Use History: Occasional Past Drug Use History: Marijuana - Past Family History Mother Family Medical History: No Reported History Medications and Allergies Home Medications Medication Instructions Recorded Confirmed Type clomiPRAMINE HCL 225 mg PO DAILY 12/03/15 09/30/21 History lamoTRIgine [LaMICtal] 100 mg PO DAILY 09/08/16 09/30/21 History Ibuprofen [Motrin] 800 mg PO Q8H PRN 01/13/18 09/30/21 History Budesonide/Formoterol Fumarate 2 puff INHALATION RT-BID 08/19/21 09/30/21 History [Symbicort 160-4.5 Mcg Inhaler] Empagliflozin [Jardiance] 25 mg PO DAILY 08/19/21 09/30/21 History Eszopiclone [Lunesta] 3 mg PO HS 08/19/21 09/30/21 History metFORMIN HCL ER [Glucophage XR] 1,000 mg PO BID 08/19/21 09/30/21 History Acetaminophen Tab [Tylenol] 650 mg PO Q6HR PRN tab 08/26/21 09/30/21 Rx Omeprazole 40 mg PO DAILY 30 Days #30 cap 08/26/21 09/30/21 Rx QUEtiapine [SEROquel] 400 mg PO HS 30 Days #30 tab 08/26/21 09/30/21 Rx Allergies Allergy/AdvReac Type Severity Reaction Status Date / Time No Known Allergies Allergy Verified 09/30/21 12:15 Physical Examination - Vital Signs Vital Signs: Vital Signs Temp Pulse Resp BP Pulse Ox 09/30/21 15:21 90 18 149/87 99 09/30/21 15:18 90 18 149/87 98 09/30/21 14:00 86 18 142/84 98 09/30/21 12:15 97.9 F 103 H 18 127/76 97 Intake and Output 09/30/21 09/30/21 09/30/21 06:59 14:59 22:59 Other: Weight 77.111 kg GENERAL: The patient is lying in bed and is not in acute distress. CHEST: The heart rate is regular rate rhythm. No murmurs to auscultation. LUNG: Clear to auscultation bilaterally no wheezing noted throughout. Not labored breathing. ABDOMEN/GI: Bowel sounds present in all 4 quadrants. No tenderness to palpation throughout. NEUROLOGICAL: Higher mental function: The patient is awake, alert, oriented to self, place and time. Patient is following commands. No aphasia and no neglect. Cranial nerves: The pupils are round, equal and reactive to light and accommodation. Visual ohara are full to confrontation throughout. Extraocular movement is intact no nystagmus is noted. Facial sensation is normal to touch throughout. The facial strength is normal throughout. Hearing is normal bilaterally to hand rub. Tongue is midline and moved [id number] without any difficulty. No dysarthria is noted. Shoulder shrug is normal bilaterally. Motor: Gait seem normal. The strength is left upper extremity proximally is 3-4 and had pronator drift. Left hand waiter/waitress head is 4+. Left lower is 5-. Otherwise 5 over 5 throughout. Normal tone and bulk. Cerebellum: Normal finger to nose bilaterally. Sensation: Sensation is normal to touch throughout. Reflexes (right/left): 2+ throughout. Plantars are downgoing bilaterally. NIH stroke scale: 1 (left upper extremity weakness) Results - Laboratory Findings CBC and BMP: 09/30/21 13:52 09/30/21 13:52 Abnormal Lab Findings: Abnormal Labs 09/30/21 09/30/21 13:52 13:52 WBC 11.3 H BUN 21 H Glucose 116 H Assessment and Plan Assessment: Acute left-sided weakness (and noticed dysarthria) likely due to acute to subacute ischemic stroke. Patient onset of symptoms was is about 3 days ago. No IV TPA since the patient is outside the window and the risk outweighed the benefits Diabetes mellitus Sleep apnea Tobacco use (1/2PPD) Plan: The patient was given aspirin 325mg once then was started on aspirin 325 mg daily. In addition I also started the patient on Plavix 75 mg daily. I also started the patient on Lipitor 80 mg daily at bedtime for secondary stroke prophylaxis Ordered MRI of the brain 2-D echo, carotid duplex and lipid panels ordered by the ED team is pending PT, OT and PAPER NOVELTY MAKER are consulted Continue objects On cardiac monitoring We'll defer the rest of the medical management to the primary team For DVT prophylaxis I start the patient on subcu heparin 5000 every 12 hours. The plan is discussed with the patient. Thank you for the consultation. Dawson Flowers M.D. Neuro-Hospitalist. Time with Patient: Greater than 30
--- NOTE | 2021-09-30 17:48 | US ---
EXAMINATION TYPE: US carotid duplex BILAT DATE OF EXAM: 09/30/2021 COMPARISON: NONE CLINICAL HISTORY: Stenosis. Stroke symptoms EXAM MEASUREMENTS: RIGHT: Peak Systolic Velocity (PSV) cm/sec ----- Right CCA: 66.9 ----- Right ICA: 76.6 ----- Right ECA: 93.8 ICA/CCA ratio: 1.1 RIGHT: End Diastole cm/sec ----- Right CCA: 18.6 ----- Right ICA: 23.7 ----- Right ECA: 19.7 LEFT: Peak Systolic Velocity (PSV) cm/sec ----- Left CCA: 81.5 ----- Left ICA: 96.0 ----- Left ECA: 92.0 ICA/CCA ratio: 1.2 LEFT: End Diastole cm/sec ----- Left CCA: 20.6 ----- Left ICA: 36.5 ----- Left ECA: 10.1 VERTEBRALS (direction of flow): Right Vertebral: Antegrade Left Vertebral: Antegrade Rhythm: Normal Mild to moderate plaque formation seen bilateral carotid artery bulbs. No significant stenosis seen. IMPRESSION: There is antegrade flow in the vertebral arteries. The images and measurements suggest less than 50% stenosis in both internal carotid arteries. Criteria for Assigning % of Stenosis / Diameter reduction (Estimation based on the indirect measurements of the internal carotid artery velocities (ICA PSV). 1. Normal (no stenosis)=ICA PSV < 125 cm/s: ratio < 2.0: ICA EDV<40 cm/s. 2. Less than 50% stenosis=ICA PSV < 125 cm/s: ratio < 2.0: ICA EDV<40 cm/s. 3. 50 to 69% stenosis=ICA PSV of 125 to 230 cm/s: ration 2.0 ? 4.0: ICA EDV 40-100 cm/s. 4. Greater than 70% stenosis to near occlusion= ICA PSV > 230 cm/s: ratio > 4.0: ICA EDV > 100 cm/s. 5. Near occlusion= ICA PSV velocities may be low or undetectable: variable ratio and ICA EDV. 6. Total occlusion=unable to detect flow.
[2021-09-30] MEDS: ATORVASTATIN 80 MG TAB PO SCH (21:49)
[2021-09-30] MEDS: HEPARIN SODIUM,PORCINE/PF 5,000 UNIT/0.5 ML SYRINGE SQ SCH (21:49)
[2021-09-30 23:02] LABS: Glucose,Whole Blood 117 mg/dL (75-99)
--- NOTE | 2021-10-01 07:35 | CA ---
Transthoracic Echo Report Name: Rene Gonzalez Age: 65 Gender: M : 1955 Exam Date: 09/30/2021 16:00 Exam Location: [facility] Ht (in): 66 Wt (lb): 170 Ordering Physician: Kamar Hinkle DO Attending/Referring Phys: Health Care Social Worker Jalyn Carey RDCS Procedure CPT: Indications: Thrombus Cardiac Hx: Technical Quality: Good Contrast 1: Total Dose (mL): Contrast 2: Total Dose (mL): MEASUREMENTS (Male / Female) Normal Values 2D ECHO LV Diastolic Diameter PLAX 4.7 cm 4.2 - 5.9 / 3.9 - 5.3 cm LV Systolic Diameter PLAX 3.6 cm IVS Diastolic Thickness 1.3 cm 0.6 - 1.0 / 0.6 - 0.9 cm LVPW Diastolic Thickness 1.1 cm 0.6 - 1.0 / 0.6 - 0.9 cm LV Relative Wall Thickness 0.5 RV Internal Dim ED PLAX 2.8 cm LA Systolic Diameter LX 3.3 cm 3.0 - 4.0 / 2.7 - 3.8 cm M-MODE Aortic Root Diameter MM 3.3 cm MV E Point Septal Separation 2.0 cm AV Cusp Separation MM 1.9 cm DOPPLER AV Peak Velocity 116.3 cm/s AV Peak Gradient 5.4 mmHg MV Area PHT 5.9 cm Mitral E Point Velocity 74.9 cm/s Mitral A Point Velocity 93.6 cm/s Mitral E to A Ratio 0.8 MV Deceleration Time 128.5 ms MV E' Velocity 5.6 cm/s Mitral E to MV E' Ratio 13.4 FINDINGS Left Ventricle Mildly increased septal wall thickness. Left ventricular ejection fraction is estimated at 55-60 %. Right Ventricle . Normal right ventricular size and function. Right Atrium Normal right atrial size. Left Atrium Normal left atrial size. Mitral Valve Mitral valve thickened. Aortic Valve Thickened aortic valve without stenosis. Tricuspid Valve Structurally normal tricuspid valve. No tricuspid regurgitation. Pulmonic Valve Trace pulmonic regurgitation. Pericardium No pericardial effusion. Aorta Normal size aortic root and proximal ascending aorta. CONCLUSIONS Normal LV size and systolic function with mild concentric LVH. Doppler exam is suboptimal. No significant abnormality. No pericardial effusion Previewed by: Dr. Bren Harmon MD (Electronically Signed) Final Date: 01 October 2021 07:34
[2021-10-01] MEDS: SODIUM CHLORIDE 0.9% 1,000 ML IV SCH ×2 (07:36→12:51)
[2021-10-01] MEDS: HEPARIN SODIUM,PORCINE/PF 5,000 UNIT/0.5 ML SYRINGE SQ SCH ×2 (08:50→20:58)
[2021-10-01] MEDS: CLOPIDOGREL 75 MG TAB PO SCH (08:50)
[2021-10-01] MEDS: ASPIRIN 325 MG TAB PO SCH (08:50)
[2021-10-01 10:25] LABS: Chol/HDL Ratio 6.02 Ratio; LDL Cholesterol,Calculated 135.3 mg/dL (0.0-131.0)
[2021-10-01] MEDS ORDERED: ACETAMINOPHEN TAB 325 MG TAB PO PRN (10:58)
[2021-10-01] MEDS ORDERED: IBUPROFEN 800 MG TAB PO PRN (10:58)
[2021-10-01] MEDS: Empagliflozin [Jardiance] PO SCH (11:27)
[2021-10-01 11:29] LABS: Glucose,Whole Blood 129 mg/dL (75-99)
[2021-10-01] MEDS: PANTOPRAZOLE 40 MG TABLET PO SCH (12:02)
[2021-10-01] MEDS: metFORMIN 500 MG TAB PO SCH ×2 (12:03→16:26)
[2021-10-01] MEDS: lamoTRIgine 100 MG TAB PO SCH (12:32)
--- NOTE | 2021-10-01 13:06 | P.PN ---
Subjective Progress Note Date: 10/01/21 The patient is seen at bedside and is upset why he did not receive his MRI yet. He feels about the same compared to yesterday. He was upset at his that she brought him to hospital and making accusation that we are draining his insurance. Objective - Vital Signs Vital signs: Vital Signs Temp 99 F 10/01/21 08:00 Pulse 98 10/01/21 12:00 Resp 16 10/01/21 12:00 BP 144/98 10/01/21 12:00 Pulse Ox 98 10/01/21 12:00 Intake & Output 09/30/21 10/01/21 10/01/21 18:59 06:59 18:59 Weight 77.111 kg 76.8 kg Other: # Voids 1 - Exam GENERAL: The patient is lying in bed and is not in acute distress. NEUROLOGICAL: Higher mental function: The patient is awake, alert, oriented to self, place and time. Patient is following commands. No aphasia and no neglect. Cranial nerves: The pupils are round, equal and reactive to light and accommodation. Visual ohara are full to confrontation throughout. Extraocular movement is intact no nystagmus is noted. Facial sensation is normal to touch throughout. The facial strength is normal throughout. Tongue is midline and moved [id number] without any difficulty. No dysarthria is noted. Shoulder shrug is normal bilaterally. Motor: Gait seem normal. The strength is left upper extremity proximally is 4+. Left hand babbitt spinner is 4+ to 5-. Left lower is 5-. Otherwise 5 over 5 throughout. Normal tone and bulk. Cerebellum: Normal finger to nose bilaterally. Sensation: Sensation is normal to touch throughout. Reflexes (right/left): 2+ throughout. Plantars are downgoing bilaterally. NIH stroke scale: 1 (left upper extremity weakness) WORK-UP: Hemoglobin A1c 7.3 Lipid panel is triglyceride of 224, cholesterol of 216, LDL is high and [address] of the head is reported as age-related atrophy and chronic small vessel ischemic change without acute intracranial process seen at this time. I personally could not review the CT of the head since there is no image for re view. 2Decho: Normal left ventricular size and systolic function with mild concentric left ventricular hypertrophy. No significant abnormality. Left atrium is normal in size. Carotid duplex is reported as there is antegrade flow in the vertebral arteries. The images and measurements suggest less than 50% stenosis in both internal carotid arteries. - Labs CBC & Chem 7: 09/30/21 13:52 09/30/21 13:52 Labs: Abnormal Lab Results - Last 24 Hours (Table) 09/30/21 09/30/21 09/30/21 Range/Units 13:52 13:52 13:52 WBC 11.3 H (3.8-10.6) k/uL BUN 21 H (9-20) mg/dL Glucose 116 H (74-99) mg/dL POC Glucose (mg/dL) (75-99) mg/dL Hemoglobin A1c 7.3 H (0.0-6.0) % Triglycerides (0.00-149.00) mg/dL Cholesterol (0.00-200.00) mg/dL LDL Cholesterol, Calc (0.0-131.0) mg/dL VLDL Cholesterol, Calc (5.00-40.00) mg/dL HDL Cholesterol (40.00-60.00) mg/dL 09/30/21 10/01/21 10/01/21 Range/Units 23:01 06:51 11:26 WBC (3.8-10.6) k/uL BUN (9-20) mg/dL Glucose (74-99) mg/dL POC Glucose (mg/dL) 117 H 129 H (75-99) mg/dL Hemoglobin A1c (0.0-6.0) % Triglycerides 224.00 H (0.00-149.00) mg/dL Cholesterol 216.00 H (0.00-200.00) mg/dL LDL Cholesterol, Calc 135.3 H (0.0-131.0) mg/dL VLDL Cholesterol, Calc 44.80 H (5.00-40.00) mg/dL HDL Cholesterol 35.90 L (40.00-60.00) mg/dL Assessment and Plan Assessment: Acute left-sided weakness (and noticed dysarthria) likely due to acute to subacute ischemic stroke. Patient onset of symptoms was is about 3 days ago. No IV TPA since the patient is outside the window and the risk outweighed the b enefits Dyslipidemia Diabetes mellitus (recent HbA1c: 7.3) Sleep apnea Tobacco use (1/2PPD) Plan: Continue aspirin 325 mg daily and Plavix 75mg daily (both new during this admission). Continue Lipitor 80 mg daily at bedtime for secondary stroke prophylaxis MRI of the brain: Pending. I called manager technical services to expedite the MRI. PT, OT and HORSEBACK RIDING INSTRUCTOR are consulted Continue neuro checks. On cardiac monitoring We'll defer the rest of the medical management to the primary team For DVT prophylaxis: Continue subcu heparin 5000 every 12 hours. Upon discharge, the patient needs to follow-up with neurologist as outpatient within 1-2 weeks. Patient agreed to stay for completion of MRI Brain and if negative he is clear for discharge. Otherwise no additional testing needed. The plan is discussed with the patient and his nurse. Dawson Flowers M.D. Neuro-Hospitalist. Time with Patient: Less than 30
--- NOTE | 2021-10-01 14:56 | P.HPIM ---
History of Present Illness H&P Date: 10/01/21 This is a very pleasant 65-year-old male who presented to the emergency department with concerns of left-sided weakness on noticing some slurred speech and brought him to the ER for further evaluation. Patient reports to the onset of symptoms starting proximally 3 days prior to admission and slightly resolved but continued. also reported to some left-sided facial droop. Patient reported having some gait disturbances and feeling as if he was dragging his left leg and also discoordination in his left upper extremity. In the ER brain CT showed age-related atrophic and chronic small muffled feeling change without acute intracranial process and no masses affects or midline shift noted with no evidence of intracranial hemorrhage. Chest x-ray revealed no acute pulmonary process. EKG showed sinus rhythm with a heart rate of 92 and a QT QTc interval of 360/409. Patient also underwent 2-D echo which showed normal LV systolic function with mild concentric left ventricular hypertrophy with no pericardial effusion an EF of 55-60% with some mild increased septal wall thickness noted. Carotid Doppler revealed a mild to moderate plaque formation seen bilateral carotid artery bulbs with no significant stenosis noted. Labs on admission show a WBC of 11.3, hemoglobin 15.7, platelets 426, sodium is 139, potassium 4.4, BUN 21, creatinine 0.82, blood sugar 116, hemoglobin A1c is 7.3 troponin was negative, elevated triglycerides cholesterol and LDL with a low HDL. Patient was admitted for neurological evaluation and will complete the neurological workup. Brain MRI is ordered. Review Of Systems: Constitutional: No fever, no chills, no night sweats. No weight change. No we akness, fatigue or lethargy. No daytime sleepiness. EENT: No headache. No blurred vision or double vision, no loss of vision. No loss of Hearing, no ringing in the ears, no dizziness. No nasal drainage or congestion. No epistaxis. No sore throat. Lungs: No shortness of breath, cough, no sputum production. No wheezing. Cardiovascular: No chest pain, no lower extremity edema. No palpitations. No paroxysmal nocturnal dyspnea. No orthopnea. No lightheadedness or dizziness. No syncopal episodes. Abdominal: No abdominal pain. No nausea, vomiting. No diarrhea. No constipation. No bloody or tarry stools.. No loss of appetite. Genitourinary: No dysuria, increased frequency, urgency. No urinary retention. Musculoskeletal: No myalgias. No muscle weakness, no gait dysfunction, no fr equent falls. No back pain. No neck pain. Integumentary: No wounds, no lesions. No rash or pruritus. No unusual bruising. No change in hair or nails. Neurologic: Reports left facial droop. reported change in mentation. No head injury. No headache. No paralysis. No paresthesia. Reports to slurring of speech, reports left upper extremity weakness and dragging left lower extremity at times Psychiatric: No depression. No anxiety. No mood swings. Endocrine: No abnormal blood sugars. No weight change. No excessive sweating or thirst. No cold intolerance. The rest of the 14 point review of systems is negative except for mentioned above Active Medications Acetaminophen (Acetaminophen Tab 325 Mg Tab) 650 mg PO Q6HR PRN PRN Reason: Mild Pain or Fever > 100.5 Aspirin (Aspirin 325 Mg Tab) 325 mg PO DAILY [facility] Last Admin: 10/01/21 08:50 Dose: 325 mg Documented by: Atorvastatin Calcium (Atorvastatin 80 Mg Tab) 80 mg PO HS [facility] Last Admin: 09/30/21 21:49 Dose: 80 mg Documented by: Budesonide/Formoterol Fumarate (Symbicort 160-4.5 Mcg Inhaler) 2 puff INHALATION RT-BID [facility] Clomipramine HCl (Clomipramine 50 Mg Cap) 225 mg PO DAILY [facility] Last Admin: 10/01/21 12:31 Dose: 225 mg Documented by: Clopidogrel Bisulfate (Clopidogrel 75 Mg Tab) 75 mg PO DAILY [facility] Last Admin: 10/01/21 08:50 Dose: 75 mg Documented by: Heparin Sodium (Porcine) (Heparin Sodium,Porcine/Pf 5,000 Unit/0.5 Ml Syringe) 5,000 unit SQ Q12HR [facility] Last Admin: 10/01/21 08:50 Dose: 5,000 unit Documented by: Ibuprofen (Ibuprofen 800 Mg Tab) 800 mg PO Q8H PRN PRN Reason: Pain Lamotrigine (Lamotrigine 100 Mg Tab) 100 mg PO DAILY [facility] Last Admin: 10/01/21 12:32 Dose: 100 mg Documented by: Metformin HCl (Metformin 500 Mg Tab) 1,000 mg PO BID-W/MEALS [facility] Last Admin: 10/01/21 12:03 Dose: 1,000 mg Documented by: Empagliflozin [ (Jardiance]) 25 mg PO DAILY [facility] Last Admin: 10/01/21 11:27 Dose: Not Given Documented by: Pantoprazole Sodium (Pantoprazole 40 Mg Tablet) 40 mg PO AC-BRKFST [facility] Last Admin: 10/01/21 12:02 Dose: 40 mg Documented by: Quetiapine Fumarate (Quetiapine 400 Mg Tab) 400 mg PO [facility] Temazepam (Temazepam 15 Mg Cap) 30 mg PO HS PRN PRN Reason: Insomnia Physical exam: Gen: This is a 65-year-old male who is awake, alert and oriented 3, well- developed, well-nourished HEENT: Head is atraumatic, normocephalic. Pupils equal, round. Sclerae is anicteric. NECK: Supple. No JVD. No lymphadenopathy. No thyromegaly. LUNGS: Diminished breath sounds bilaterally with no wheezing or rhonchi noted. No intercostal retractions. HEART: Regular rate and rhythm. No murmur. ABDOMEN: Soft. Bowel sounds are present. No masses. No tenderness. EXTREMITIES: No pedal edema. No calf tenderness. NEUROLOGICAL: Patient is awake, alert and oriented x3. Cranial nerves 2 through 12 are grossly intact. Assessment: Left-sided weakness, possibly secondary to acute to subacute ischemic stroke with onset of symptoms 3 days prior Hyperlipidemia diabetes mellitus, type II uncontrolled with hyperglycemia, hemoglobin A1c is 7.3 Sleep apnea Ongoing continued nicotine abuse History of osteoarthritis Bipolar disorder GI prophylaxis DVT prophylaxis Full code Plan: Recommend to continue with ICU monitoring and neurological evaluation. MRI of the brain is ordered and pending at this time. Initially due to stat orders MRI was going to be unavailable until tomorrow and patient requesting to be dis charged having outpatient MRI and this was discussed with neurology and the patient. Patient is high risk and encourage the patient to continue and complete the neurological workup. Patient with some mild left side deficits of the upper extremities noted patient denies any further slurring of speech and passed swallow exam and able to tolerate food and take medications. Appropriate home medications have been resumed. MRI scheduled was changed to 4 this evening and per neurology if negative patient may be discharged and follow-up in the outpatient setting with neurology. Patient will be continued on aspirin, Plavix, statin and strongly encourage the patient to avoid and quit tobacco use. Will await MRI of the brain with possible discharge later this evening if MRI is negative. Guarded prognosis. The impression and plan of care has been dictated by Shonda Sumner, Nurse Practitioner as directed. Dr. Ashish MD I have performed a history and examination and MDM of this patient, discussed the same with the dictator, and agree with the dictator's assessment and plan as written ,documented as a scribe. Based on total visit time, I have performed more than 50% of the visit. Past Medical History Past Medical History: Diabetes Mellitus, Osteoarthritis (OA), Sleep Apnea/CPAP/BIPAP Additional Past Medical History / Comment(s): neck pain numbness left shoulder, hx rapid heart rate,,no cpap,DIABETIC- DIET CONTROLLED with metformin History of Any Multi-Drug Resistant Organisms: None Reported Past Surgical History: Cardiac Ablation Additional Past Surgical History / Comment(s): colonoscopy, PAIN CLINIC INJE CTION Past Anesthesia/Blood Transfusion Reactions: No Reported Reaction Past Psychological History: Bipolar Smoking Status: Current every day smoker Past Alcohol Use History: Occasional Past Drug Use History: Marijuana - Past Family History Mother Family Medical History: No Reported History Medications and Allergies Home Medications Medication Instructions Recorded Confirmed Type clomiPRAMINE HCL 225 mg PO DAILY 12/03/15 09/30/21 History lamoTRIgine [LaMICtal] 100 mg PO DAILY 09/08/16 09/30/21 History Ibuprofen [Motrin] 800 mg PO Q8H PRN 01/13/18 09/30/21 History Budesonide/Formoterol Fumarate 2 puff INHALATION RT-BID 08/19/21 09/30/21 History [Symbicort 160-4.5 Mcg Inhaler] Empagliflozin [Jardiance] 25 mg PO DAILY 08/19/21 09/30/21 History Eszopiclone [Lunesta] 3 mg PO HS 08/19/21 09/30/21 History metFORMIN HCL ER [Glucophage XR] 1,000 mg PO BID 08/19/21 09/30/21 History Acetaminophen Tab [Tylenol] 650 mg PO Q6HR PRN tab 08/26/21 09/30/21 Rx Omeprazole 40 mg PO DAILY 30 Days #30 cap 08/26/21 09/30/21 Rx QUEtiapine [SEROquel] 400 mg PO HS 30 Days #30 tab 08/26/21 09/30/21 Rx Allergies Allergy/AdvReac Type Severity Reaction Status Date / Time No Known Allergies Allergy Verified 09/30/21 12:15 Physical Exam Vitals: Vital Signs Temp Pulse Pulse Resp BP BP Pulse Ox 10/01/21 04:00 98.1 F 92 14 147/93 96 10/01/21 02:00 90 16 09/30/21 23:59 90 16 96 09/30/21 23:30 98.0 F 84 20 157/89 96 09/30/21 21:49 88 18 155/85 98 09/30/21 18:10 93 18 151/90 98 09/30/21 15:21 90 18 149/87 99 09/30/21 15:18 90 18 149/87 98 09/30/21 14:00 86 18 142/84 98 09/30/21 12:15 97.9 F 103 H 18 127/76 97 Intake and Output 09/30/21 10/01/21 10/01/21 22:59 06:59 14:59 Other: # Voids 1 1 Weight 76.8 kg Results CBC & Chem 7: 09/30/21 13:52 09/30/21 13:52 Labs: Abnormal Lab Results - Last 24 Hours (Table) 09/30/21 09/30/21 09/30/21 Range/Units 13:52 13:52 13:52 WBC 11.3 H (3.8-10.6) k/uL BUN 21 H (9-20) mg/dL Glucose 116 H (74-99) mg/dL POC Glucose (mg/dL) (75-99) mg/dL Hemoglobin A1c 7.3 H (0.0-6.0) % 09/30/21 Range/Units 23:01 WBC (3.8-10.6) k/uL BUN (9-20) mg/dL Glucose (74-99) mg/dL POC Glucose (mg/dL) 117 H (75-99) mg/dL Hemoglobin A1c (0.0-6.0) % Thrombosis Risk Factor Assmnt - Choose All That Apply Each Factor Represents 1 point: Obesity (BMI >25) Other Risk Factors: Yes Each Risk Factor Represents 2 Points: Age 61-74 years Thrombosis Risk Factor Assessment Total Risk Factor Score: 3 Thrombosis Risk Factor Assessment Level: Moderate Risk
--- NOTE | 2021-10-01 16:02 | MR ---
EXAMINATION TYPE: MR brain wo con DATE OF EXAM: 10/01/2021 COMPARISON: CT brain 1 day earlier HISTORY: Stroke. Left sided weakness. TECHNIQUE: Multiplanar, multisequence imaging of the brain and brainstem is performed without IV cont rast. FINDINGS: Diffusion weighted images demonstrate subtle 11 x 6 mm area of increased signal on diffusion-weighted images with this minimal signal on ADC mapping showing diminished T1 and increased T2 signal in the right aspect of the central radha system with evolving acute infarct. There is background mild diffuse age-related cerebral atrophy and multifocal and confluent areas of T 2 hyperintensity consistent with moderate to borderline advanced chronic small vessel ischemic change . Midline structures demonstrate normal morphology. The craniocervical junction appears within normal limits. Normal vascular flow voids are present. Mild to moderate mucosal thickening bilateral frontal sinuses and moderate mucosal thickening throughout the ethmoid sinuses bilaterally is redemonstrated . There is mucous retention cyst or polyp anteriorly in the left sphenoid sinus. IMPRESSION: 1. Evolving acute 11 x 6 mm infarct right aspect of radha. 2. Background mild diffuse age-related cerebral atrophy and moderate to borderline advanced chronic s mall vessel ischemic change along with chronic paranasal sinus disease are all redemonstrated.
[2021-10-01 16:23] LABS: Glucose,Whole Blood 153 mg/dL (75-99)
[2021-10-01] MEDS: SYMBICORT 160-4.5 MCG INHALER INHALATION SCH ×2 (19:41→19:42)
[2021-10-01 20:42] LABS: Glucose,Whole Blood 126 mg/dL (75-99)
[2021-10-01] MEDS: ATORVASTATIN 80 MG TAB PO SCH (20:58)
[2021-10-01] MEDS ORDERED: QUEtiapine 400 MG TAB PO SCH (21:00)
[2021-10-01] MEDS ORDERED: TEMAZEPAM 15 MG CAP PO PRN (21:00)
[2021-10-02 06:12] LABS: Glucose,Whole Blood 158 mg/dL (75-99)
[2021-10-02] MEDS: metFORMIN 500 MG TAB PO SCH (06:17)
[2021-10-02] MEDS: PANTOPRAZOLE 40 MG TABLET PO SCH (06:17)
[2021-10-02] MEDS: CLOPIDOGREL 75 MG TAB PO SCH (08:25)
[2021-10-02] MEDS: ASPIRIN 325 MG TAB PO SCH (08:25)
[2021-10-02] MEDS: lamoTRIgine 100 MG TAB PO SCH (08:26)
[2021-10-02] MEDS: HEPARIN SODIUM,PORCINE/PF 5,000 UNIT/0.5 ML SYRINGE SQ SCH (08:27)
[2021-10-02] MEDS: SYMBICORT 160-4.5 MCG INHALER INHALATION SCH (08:37)
[2021-10-02 09:32] VITALS: PULSE 100; TEMP 97.6
[2021-10-02] MEDS: Empagliflozin [Jardiance] PO SCH (10:32)
[2021-10-02 11:35] LABS: Glucose,Whole Blood 235 mg/dL (75-99)
--- NOTE | 2021-10-02 11:52 | P.PN ---
Subjective Progress Note Date: 10/02/21 The patient is seen at bedside and feels about the same and denies any worsening of his neurological condition. Objective - Vital Signs Vital signs: Vital Signs Temp 97.6 F 10/02/21 08:00 Pulse 100 10/02/21 08:00 Resp 16 10/02/21 08:00 BP 98/61 10/02/21 08:00 Pulse Ox 97 10/02/21 08:00 Intake & Output 10/01/21 10/02/21 10/02/21 18:59 06:59 18:59 Intake Total 360 Balance 360 Intake: Oral 360 Other: Voiding Method Toilet # Voids 2 1 - Exam GENERAL: The patient is lying in bed and is not in acute distress. NEUROLOGICAL: Higher mental function: The patient is awake, alert, oriented to self, place and time. Patient is following commands. No aphasia and no neglect. Cranial nerves: The pupils are round, equal and reactive to light and accommodation. Visual ohara are full to confrontation throughout. Extraocular movement is intact no nystagmus is noted. Facial sensation is normal to touch throughout. The facial strength is normal throughout. Tongue is midline and moved [id number] without any difficulty. No dysarthria is noted. Shoulder shrug is normal bilaterally. Motor: Gait seem normal. The strength is left upper extremity proximally is 4+. Left hand or nurse manager is 4+ to 5-. Left lower is 5-. Otherwise 5 over 5 throughout. Normal tone and bulk. Cerebellum: Normal finger to nose bilaterally. Sensation: Sensation is normal to touch throughout. Reflexes (right/left): 2+ throughout. Plantars are downgoing bilaterally. NIH stroke scale: 1 (left upper extremity weakness) WORK-UP: Hemoglobin A1c 7.3 Lipid panel is triglyceride of 224, cholesterol of 216, LDL is high and [address] of the head is reported as age-related atrophy and chronic small vessel ischemic change without acute intracranial process seen at this time. I personally could not review the CT of the head since there is no image for review. 2Decho: Normal left ventricular size and systolic function with mild concentric left ventricular hypertrophy. No significant abnormality. Left atrium is shayan l in size. Carotid duplex is reported as there is antegrade flow in the vertebral arteries. The images and measurements suggest less than 50% stenosis in both internal carotid arteries. MRI Brain is reported as Evolving acute 11X6mm infarct right aspect of radha. Background mild diffuse age-related cerebral atrophy and moderate to borderline advanced chronic small vessel ischemic change along with chronic paranasal sinus disease are all redomonstrated. I personally reviewed MRI and agree there is acute stroke over the right radha. - Labs CBC & Chem 7: 09/30/21 13:52 09/30/21 13:52 Labs: Abnormal Lab Results - Last 24 Hours (Table) 10/01/21 10/01/21 10/02/21 Range/Units 16:21 20:40 06:11 POC Glucose (mg/dL) 153 H 126 H 158 H (75-99) mg/dL 10/02/21 Range/Units 11:27 POC Glucose (mg/dL) 235 H (75-99) mg/dL Assessment and Plan Assessment: Acute ischemic stroke (right radha). Has left-sided weakness (and noticed dysarthria). Patient onset of symptoms was is about 3 days prior to presentation to hospital. No IV TPA since the patient is outside the window and the risk outweighed the benefits. Etiology of stroke seem due to small vessel disease due to his risk factors. Dyslipidemia Diabetes mellitus (recent HbA1c: 7.3) Sleep apnea Tobacco use (1/2PPD) Plan: Continue aspirin 325 mg daily and Plavix 75mg daily (both new during this admission). To be on dual antiplatelets for 21 day then stop Plavix 75mg but continues ASA 325mg. Continue Lipitor 80 mg daily at bedtime for secondary stroke prophylaxis PT, OT and CLAIM CLERK are consulted Continue neuro checks. On cardiac monitoring We'll defer the rest of the medical management to the primary team For DVT prophylaxis: Continue subcu heparin 5000 every 12 hours. Upon discharge, the patient needs to follow-up with neurologist as outpatient within 1-2 weeks. The plan is discussed with patient and primary team. Otherwise no additional testing needed. Patient is clear for discharge from neurological perspective. Dawson Flowers M.D. Neuro-Hospitalist. Time with Patient: Less than 30
[2021-10-02 12:22] VITALS: BP 132/70; RESP 17
--- NOTE | 2021-10-02 14:30 | P.DS ---
Providers Date of admission: 09/30/21 14:11 Expected date of discharge: 10/02/21 Attending physician: Jazmine Ferrer Consults: 09/30/21 14:12 Consult Physician Urgent Consulting Provider: Dawson Flowers Consult Reason/Comments: cva Do you want consulting provider notified?: Yes Primary care physician: Tom Pedro [place] [facility] Course: Final diagnosis Left-sided weakness, secondary to acute to subacute ischemic stroke with onset of symptoms 3 days prior, outside of the TPA window Evolving acute infarct of the right aspect of radha measuring approximately 11 x 6 mm as noted on MRI of the brain Hyperlipidemia diabetes mellitus, type II uncontrolled with hyperglycemia, hemoglobin A1c is 7.3 Sleep apnea Ongoing continued nicotine abuse History of osteoarthritis Bipolar disorder GI prophylaxis DVT prophylaxis Full code Discharge disposition Patient is being discharged in a stable condition with guarded prognosis to home. Patient will follow-up with Dr. Vasquez upon discharge. Patient will continue with aspirin 325 mg daily along with Plavix 75 mg daily for the next 21 days and then may discontinue Plavix and continue with aspirin thereafter. Patient will need close outpatient follow-up with endocrine along with neurology on discharge. Total time taken is greater than 35 minutes. Hospital course This is a 65-year-old male who was recently admitted with some noted left-sided facial droop along with dysphasia and left-sided upper and lower extremity weakness and was being closely monitored. Patient underwent neurological workup for CVA and brain MRI confirmed an evolving acute infarct of the right aspect of radha measuring approximately 11 x 6 mm and was started on a statin, high-dose aspirin, Plavix with neurology following. Patient will continue 21 days of Plavix and aspirin and after that may discontinue Plavix and continue with 325 mg of aspirin daily and discussed with the patient about following up with neurology this week. Patient also to follow-up with his primary care provider and continue with current medications as mentioned below. Patient with some elevated sugars and recommend tighter glycemic control and consistent carb diet with close glucose monitoring at least 4 times daily and keeping a diary for primary care follow-up. Also referred the patient to endocrine and resources were provided and recommend the patient to follow-up in the next 1-2 weeks. Patient with some mild left-sided residual in the left upper extremity and is walking with no difficulties. Patient has been evaluated by neurology this morning and cleared for discharge recommending outpatient follow-up with neurology as discussed. Currently no reports of chest pain, shortness of breath, or palpitations. Patient is afebrile. No reports of nausea or vomiting and patient is tolerating diet. Patient will be discharged home today. Guarded prognosis. Physical exam: Gen: This is a 65-year-old male who is awake, alert and oriented 3, well- developed, well-nourished HEENT: Head is atraumatic, normocephalic. Pupils equal, round. Sclerae is anicteric. NECK: Supple. No JVD. No lymphadenopathy. No thyromegaly. LUNGS: Diminished breath sounds bilaterally with no wheezing or rhonchi noted. No intercostal retractions. HEART: Regular rate and rhythm. No murmur. ABDOMEN: Soft. Bowel sounds are present. No masses. No tenderness. EXTREMITIES: No pedal edema. No calf tenderness. NEUROLOGICAL: Patient is awake, alert and oriented x3. Cranial nerves 2 through 12 are grossly intact. Left side upper extremity weakness that has improved per patient Please refer to medication reconciliation sheet for a list of medications. The impression and plan of care has been dictated by Shonda Sumner, Nurse Practitioner as directed. Dr. Octavio MD I have performed a history and examination and MDM of this patient, discussed the same with the dictator, and agree with the dictator's assessment and plan a s written ,documented as a scribe. Based on total visit time, I have performed more than 50% of the visit. Patient Condition at Discharge: Fair Plan - Discharge Summary Discharge Rx Participant: Yes New Discharge Prescriptions: New Aspirin 325 mg PO DAILY 30 Days #30 tab Clopidogrel [Plavix] 75 mg PO DAILY 21 Days #21 tab Atorvastatin [Lipitor] 80 mg PO HS 30 Days #30 tab Continue clomiPRAMINE HCL 225 mg PO DAILY lamoTRIgine [LaMICtal] 100 mg PO DAILY Ibuprofen [Motrin] 800 mg PO Q8H PRN PRN Reason: Pain Omeprazole 40 mg PO DAILY 30 Days #30 cap Acetaminophen Tab [Tylenol] 650 mg PO Q6HR PRN tab PRN Reason: Mild Pain Or Fever > 100.5 QUEtiapine [SEROquel] 400 mg PO HS 30 Days #30 tab metFORMIN HCL ER [Glucophage XR] 1,000 mg PO BID Budesonide/Formoterol Fumarate [Symbicort 160-4.5 Mcg Inhaler] 2 puff INHALATION RT-BID Eszopiclone [Lunesta] 3 mg PO HS Empagliflozin [Jardiance] 25 mg PO DAILY Discharge Medication List clomiPRAMINE HCL 225 mg PO DAILY 12/03/15 [History] lamoTRIgine [LaMICtal] 100 mg PO DAILY 09/08/16 [History] Ibuprofen [Motrin] 800 mg PO Q8H PRN 01/13/18 [History] Budesonide/Formoterol Fumarate [Symbicort 160-4.5 Mcg Inhaler] 2 puff INHALATION RT-BID 08/19/21 [History] Empagliflozin [Jardiance] 25 mg PO DAILY 08/19/21 [History] Eszopiclone [Lunesta] 3 mg PO HS 08/19/21 [History] metFORMIN HCL ER [Glucophage XR] 1,000 mg PO BID 08/19/21 [History] Acetaminophen Tab [Tylenol] 650 mg PO Q6HR PRN tab 08/26/21 [Rx] Omeprazole 40 mg PO DAILY 30 Days #30 cap 08/26/21 [Rx] QUEtiapine [SEROquel] 400 mg PO HS 30 Days #30 tab 08/26/21 [Rx] Aspirin 325 mg PO DAILY 30 Days #30 tab 10/02/21 [Rx] Atorvastatin [Lipitor] 80 mg PO HS 30 Days #30 tab 10/02/21 [Rx] Clopidogrel [Plavix] 75 mg PO DAILY 21 Days #21 tab 10/02/21 [Rx] Follow up Appointment(s)/Referral(s): Laura Fields MD [REFERRING] - 1 Week (neurologist ) Hank Rhoades MD [REFERRING] - 2 Weeks (for your DM diabetess ) Tom Vasquez DO [Primary Care Provider] - 10/03/21 8:45 am Delmar Doyle MD [Medical Doctor] - 1 Week (neurologist-office will call you to schedule this appointment ) Kitty Fields MD [REFERRING] - 1 Week (neurologist ) Edemlira Marquez MD [STAFF PHYSICIAN] - 2 Weeks (for your DM diabetess ) Patient Instructions/Handouts: Stroke (DC) Activity/Diet/Wound Care/Special Instructions: heart healthy diet , low carbohydrate diet activity is restricted till you see your doctor we recommend to check your glucose 4 times a day before each meal and at bed time , keep the results in a log book and bring it to your doctor upon your appointment date if your glucose is less than 70 or more than 400 then call 911 and come to emergency room Continue taking aspirin and Plavix daily for the next 21 days and then may discontinue Plavix and continue with aspirin 325 mg daily. Follow-up with neurologist in 1 week Follow-up with primary care provider on discharge Continue taking medications as prescribed Follow-up with endocrinology in 1-2 weeks Discharge Disposition: HOME SELF-CARE
== END 2021-10-02 14:00 | disposition home or self-care (01) | DRG 65 ==
LOC: EC 12:12 → 3SCARD 14:11 → 2SICU 21:39 → 3SCARD 10-01 18:36
PROVIDERS: ADMIT Hospitalist; ATTEND Hospitalist
DX: I63.81 Other cerebral infarction due to occlusion or stenosis of small artery (principal); G81.94 Hemiplegia, unspecified affecting left nondominant side; G31.89 Other specified degenerative diseases of nervous system; E11.9 Type 2 diabetes mellitus without complications; R47.1 Dysarthria and anarthria; M19.90 Unspecified osteoarthritis, unspecified site; E78.1 Pure hyperglyceridemia; E78.5 Hyperlipidemia, unspecified; F17.210 Nicotine dependence, cigarettes, uncomplicated; F31.9 Bipolar disorder, unspecified; G47.30 Sleep apnea, unspecified; Z79.51 Long term (current) use of inhaled steroids; Z79.84 Long term (current) use of oral hypoglycemic drugs; Z79.899 Other long term (current) drug therapy; Z98.84 Bariatric surgery status
CPT/HCPCS: 36415; 70450; 70551; 71046; 80053; 80061; 83036; 84484; 85025; 85610; 85730; 93005; 93306; 93880; 99285

== ENCOUNTER 2021-11-07 07:12 | Day surgery (SDC) | payer MEDICARE, BC ==
[~2021-11-07 07:12] MED LIST changes: +LACTATED RINGERS 1,000 ML IV SCH; -SODIUM CHLORIDE 0.9% 500 ML 500 ML IV SCH
--- NOTE | 2021-11-07 07:47 | P.GSHP ---
History of Present Illness H&P Date: 11/07/21 CHIEF COMPLAINT: GERD and colon screen HISTORY OF PRESENT ILLNESS: The patient is a 66-year-old male who presents with gastroesophageal reflux disease and need for colon screen. Upper and lower endoscopy were offered for further evaluation and management. PAST MEDICAL HISTORY: Please see list. PAST SURGICAL HISTORY: Please see list. MEDICATIONS: Please see list. ALLERGIES: Please see list. SOCIAL HISTORY: No illicit drug use FAMILY HISTORY: No reports of Crohn disease or ulcerative colitis. REVIEW OF ORGAN SYSTEMS: CONSTITUTIONAL: No reports of fevers or chills. GI: Denies any blood in stools or constipation. PHYSICAL EXAM: VITAL SIGNS: Stable GENERAL: Well-developed pleasant in no acute distress. HEENT: No scleral icterus. Extraocular movements grossly intact. Moist buccal mucosa. NECK: Supple without lymphadenopathy. CHEST: Unlabored respirations. Equal bilateral excursions. CARDIOVASCULAR: Regular rate and rhythm. Distal 2+ pulses. ABDOMEN: Soft, nondistended. MUSCULOSKELETAL: No clubbing, cyanosis, or edema. ASSESSMENT: 1. Gastroesophageal reflux disease 2. Colon screen. PLAN: 1. Recommend proceeding with an upper and lower endoscopy Past Medical History Past Medical History: Atrial Fibrillation, COPD, CVA/TIA, Diabetes Mellitus, GERD/Reflux, Osteoarthritis (OA), Sleep Apnea/CPAP/BIPAP Additional Past Medical History / Comment(s): hx rapid heart rate,no cpap,DIABETIC- DIET CONTROLLED with metformin, past hx. a fib-had cardiac ablation, past hx. dysphagia, hx. colon polyps, recent adm. for stroke in September- all sx. resolved per pt. History of Any Multi-Drug Resistant Organisms: None Reported Past Surgical History: Cardiac Ablation, Tonsillectomy Additional Past Surgical History / Comment(s): colonoscopy, PAIN CLINIC INJECTION Past Anesthesia/Blood Transfusion Reactions: No Reported Reaction Smoking Status: Current every day smoker - Past Family History Mother Family Medical History: No Reported History Medications and Allergies Home Medications Medication Instructions Recorded Confirmed Type clomiPRAMINE HCL 225 mg PO DAILY 12/03/15 11/05/21 History lamoTRIgine [LaMICtal] 100 mg PO DAILY 09/08/16 11/05/21 History Empagliflozin [Jardiance] 25 mg PO DAILY 08/19/21 11/05/21 History Eszopiclone [Lunesta] 3 mg PO HS 08/19/21 11/05/21 History metFORMIN HCL ER [Glucophage XR] 1,000 mg PO BID 08/19/21 11/05/21 History QUEtiapine [SEROquel] 400 mg PO HS 30 Days #30 tab 08/26/21 11/05/21 Rx Atorvastatin [Lipitor] 80 mg PO HS 30 Days #30 tab 10/02/21 11/05/21 Rx Aspirin 81 mg PO DAILY 11/05/21 11/05/21 History Omeprazole 20 mg PO DAILY 11/05/21 11/05/21 History Tiotropium [place] [Spiriva] 1 cap INHALATION DAILY PRN 11/05/21 11/07/21 History Allergies Allergy/AdvReac Type Severity Reaction Status Date / Time No Known Allergies Allergy Verified 11/07/21 07:32
[2021-11-07] MEDS ORDERED: LIDOCAINE 1% (10MG/ML) FOR IV START INTRADERMA ONE (07:55)
[2021-11-07 08:02] VITALS: TEMP 97.7
[2021-11-07 08:02] LABS: Glucose,Whole Blood 157 mg/dL (75-99)
[2021-11-07] MEDS ORDERED: PROPOFOL 10 MG/ML 20 ML VIAL IV ONE (08:33)
[2021-11-07] MEDS ORDERED: LIDOCAINE 2% INJ 20 MG/ML (2 ML VIAL) ONE (08:33)
--- NOTE | 2021-11-07 08:48 | P.PCN ---
Date of Procedure: 11/07/21 Description of Procedure: PREOPERATIVE DIAGNOSIS: Gastroesophageal reflux disease. POSTOPERATIVE DIAGNOSIS: Gastroesophageal reflux disease. Gastritis with bleeding Diaphragmatic hiatal hernia Demarco's esophagus OPERATION: Esophagogastroduodenoscopy with biopsies along antrum and GE junction SURGEON: Loretta Stoddard MD ANESTHESIA: MAC. INDICATIONS: The patient is a 66-year-old male who presents with reflux disease. Benefits and risks of the procedure were described. Informed consent was obtained. DESCRIPTION: The patient was brought into the endoscopy suite and laid in the left lateral decubitus position. An Olympus gastroscope was passed along the posterior oropharynx down to the distal esophagus where the squamocolumnar junction was encountered at 40 cm from the incisors. The stomach was entered and no bile reflux was found. Additional findings are listed below. Biopsies with cold forceps were obtained of the antrum. The first through third portion of the duodenum was examined. Retroflexion of the scope confirmed Hill grade 3 lower esophageal valve. The squamocolumnar junction demonstrated LA grade B erosive esophagitis. The stomach was desufflated. The patient tolerated the procedure well. FINDINGS: Squamocolumnar junction 40 cm from the incisors. Diaphragmatic hiatus at 43 cm. Hiatal hernia, 3 cm Hill grade 3 lower esophageal valve. LA grade D erosive esophagitis, 3 cm with column erosion 2 No active duodenitis. Chronic gastritis with recent bleeding RECOMMENDATIONS: Repeat upper endoscopy in 1 year
[2021-11-07 09:16] VITALS: RESP 16
--- NOTE | 2021-11-07 09:16 | P.PCN ---
Date of Procedure: 11/07/21 Description of Procedure: PREOPERATIVE DIAGNOSIS: Personal history of colon polyps POSTOPERATIVE DIAGNOSIS: Tubular adenoma cecum Tubular adenoma transverse colon Tubular adenoma rectum Tubular adenoma sigmoid colon OPERATION: Colonoscopy to the ileocecal valve and appendiceal orifice, cecum Colonoscopy with hot snare polypectomy Colonoscopy with cold forceps biopsy SURGEON: Loretta Stoddard MD. ANESTHESIA: MAC. INDICATIONS: The patient is an 66-year-old male who presents personal history of colon polyps. Last colonoscopy 5 years. Benefits and risks were described and informed consent was obtained. DESCRIPTION OF PROCEDURE: The patient had undergone Sutab prep. The patient had been brought into the operating room and laid in the left lateral decubitus position. After adequate intravenous sedation, the rectum was examined with 2% lidocaine jelly. The prostate was unremarkable. External hemorrhoids were encountered. The rectal tone was within normal limits. No lesions were palpated in the rectal vault. An Olympus colonoscope was advanced until the cecum, ileocecal valve and appendiceal orifice were clearly viewed. The prep was good. No sigmoid diverticulosis was encountered. Colonic polyps were found and removed. No evidence of focal colitis was found. Retroflexion of the scope demonstrated grade 2 internal hemorrhoids without active bleeding or inflammation. The colon was desufflated. The patient had tolerated the procedure well. Withdrawal time was over 6 minutes. FINDINGS: Aronchick preparation quality scale 2 (1-5) Internal hemorrhoids, grade 2 External hemorrhoids, grade 2. No arteriovenous malformations. No sigmoid diverticulosis Removal of 9 polyps: - Snare polypectomy 10 cm from the anal verge x 5, 4 to 6 mm tubulovillous adenoma polyp. - Snare polypectomy 20 cm from the anal verge x 2, 6 to 8 mm flat villous adenoma polyp. - Snare polypectomy midtransverse colon, 4 mm flat villous adenoma polyp. - Snare polypectomy cecum, 6 mm flat villous adenoma polyp. No focal colitis. RECOMMENDATIONS: Given severity of tubular adenomas, recommend repeat colonoscopy 1 year. Plan - Discharge Summary Discharge Rx Participant: No New Discharge Prescriptions: Continue clomiPRAMINE HCL 225 mg PO DAILY lamoTRIgine [LaMICtal] 100 mg PO DAILY QUEtiapine [SEROquel] 400 mg PO HS 30 Days #30 tab Aspirin 81 mg PO DAILY Omeprazole 20 mg PO DAILY metFORMIN HCL ER [Glucophage XR] 1,000 mg PO BID Eszopiclone [Lunesta] 3 mg PO HS Empagliflozin [Jardiance] 25 mg PO DAILY Atorvastatin [Lipitor] 80 mg PO HS 30 Days #30 tab Tiotropium [place] [Spiriva] 1 cap INHALATION DAILY PRN PRN Reason: Shortness Of Breath Discharge Medication List clomiPRAMINE HCL 225 mg PO DAILY 12/03/15 [History] lamoTRIgine [LaMICtal] 100 mg PO DAILY 09/08/16 [History] Empagliflozin [Jardiance] 25 mg PO DAILY 08/19/21 [History] Eszopiclone [Lunesta] 3 mg PO HS 08/19/21 [History] metFORMIN HCL ER [Glucophage XR] 1,000 mg PO BID 08/19/21 [History] QUEtiapine [SEROquel] 400 mg PO HS 30 Days #30 tab 08/26/21 [Rx] Atorvastatin [Lipitor] 80 mg PO HS 30 Days #30 tab 10/02/21 [Rx] Aspirin 81 mg PO DAILY 11/05/21 [History] Omeprazole 20 mg PO DAILY 11/05/21 [History] Tiotropium [place] [Spiriva] 1 cap INHALATION DAILY PRN 11/05/21 [History] Follow up Appointment(s)/Referral(s): Loretta Stoddard MD [STAFF PHYSICIAN] - 12/03/21 Patient Instructions/Handouts: Colorectal Polyps (GEN), Demarco Esophagus (DC), Hiatal Hernia (DC) Activity/Diet/Wound Care/Special Instructions: Repeat upper and lower endoscopy in one year, 2022 Discharge Disposition: HOME SELF-CARE
[2021-11-07 09:37] VITALS: BP 117/83; PULSE 83
== END 2021-11-07 09:45 | disposition home or self-care (01) ==
LOC: ORWHC2ENDO 07:12
PROVIDERS: ATTEND Surgery Plastic and Reconstructive Surgery
DX: Z12.11 Encounter for screening for malignant neoplasm of colon (principal); D12.3 Benign neoplasm of transverse colon; D12.0 Benign neoplasm of cecum; K63.5 Polyp of colon; K22.10 Ulcer of esophagus without bleeding; K64.4 Residual hemorrhoidal skin tags; K64.1 Second degree hemorrhoids; K21.9 Gastro-esophageal reflux disease without esophagitis; K29.51 Unspecified chronic gastritis with bleeding; K31.9 Disease of stomach and duodenum, unspecified; K31.A19 Gastric intestinal metaplasia without dysplasia, unspecified site; K22.70 Barrett's esophagus without dysplasia; K44.9 Diaphragmatic hernia without obstruction or gangrene; I48.91 Unspecified atrial fibrillation; J44.9 Chronic obstructive pulmonary disease, unspecified; E11.9 Type 2 diabetes mellitus without complications; Z97.2 Presence of dental prosthetic device (complete) (partial); Z86.73 Personal history of transient ischemic attack (TIA), and cerebral infarction without residual deficits; M19.90 Unspecified osteoarthritis, unspecified site; G47.33 Obstructive sleep apnea (adult) (pediatric); Z86.010 Personal history of colon polyps; Z98.890 Other specified postprocedural states; F17.200 Nicotine dependence, unspecified, uncomplicated; Z79.84 Long term (current) use of oral hypoglycemic drugs; Z79.82 Long term (current) use of aspirin; Z79.899 Other long term (current) drug therapy; Z79.4 Long term (current) use of insulin
CPT/HCPCS: 88305; 88312; 88342; 45385; 43239; J2704; J2001

== ENCOUNTER → 2021-12-11 | Outpatient (CLI) | payer MEDICARE, BC ==
--- NOTE | 2021-12-11 08:08 | US ---
EXAMINATION TYPE: US gallbladder DATE OF EXAM: 12/11/2021 COMPARISON: CT abdomen and pelvis August 20, 2021 CLINICAL HISTORY: K81.1 CHRONIC CHOLECYSTITIS. heartburn and reflux. EXAM MEASUREMENTS: Liver Length: 17.3 cm Gallbladder Wall: 0.3 cm CBD: 0.4 cm Right Kidney: 9.6 x 5.1 x 4.5 cm Pancreas: Obscured by bowel gas Liver: attenuating, unable to penetrate, hypoechoic area adjacent to GB = 2.9cm - focal sparing Gallbladder: no evidence of stones Evidence for sonographic Wagner's sign: no CBD: limited evaluation, appears wnl Right Kidney: no evidence of hydronephrosis Pancreas obscured by overlying bowel gas on initial images saved. Visualized liver is markedly hetero geneously hyperechoic. Evaluation for focal masses suboptimal due to the heterogeneity. Gallbladder s een without mobile shadowing gallstones. No right-sided hydronephrosis. No biliary dilatation. IMPRESSION: No gallstones or ultrasound evidence for acute cholecystitis. Marked fatty infiltration o f the liver is redemonstrated.
== END | disposition home or self-care (01) ==
LOC: RADUSWWP 07:25
PROVIDERS: ATTEND Surgery Plastic and Reconstructive Surgery
DX: K76.0 Fatty (change of) liver, not elsewhere classified (principal)
CPT/HCPCS: 76705

== ENCOUNTER → 2022-01-23 | Outpatient (CLI) | payer MEDICARE, BC ==
--- NOTE | 2022-01-23 12:09 | XR ---
EXAMINATION TYPE: XR Hip Complete RT DATE OF EXAM: 01/23/2022 CLINICAL HISTORY: pain TECHNIQUE: AP and frogleg views of the right hip are obtained. COMPARISON: None. FINDINGS: There is no acute fracture/dislocation evident. The joint space appears mildly narrow. The overlying soft tissue appears unremarkable. IMPRESSION: 1. There is no acute fracture or dislocation. ICD 10 NO FRACTURE, INITIAL EVALUATION
== END | disposition home or self-care (01) ==
LOC: RADXRMAIN 09:56
PROVIDERS: ATTEND Family Medicine
DX: M25.551 Pain in right hip (principal)
CPT/HCPCS: 73502

== ENCOUNTER → 2022-09-17 | Outpatient (CLI) | payer MEDICARE, BC ==
[2022-09-17 14:01] LABS: African American GFR (CKD) >90 (>60 ml/min/1.73 sqM); Blood Urea Nitrogen 26 mg/dL (9-20); Non-African American GFR(CKD) 86 (>60 ml/min/1.73 sqM)
--- NOTE | 2022-09-17 16:28 | CT ---
EXAMINATION TYPE: CT urogram wo/w con CT DLP: 3390 mGycm, Automated exposure control for dose reduction was used. DATE OF EXAM: 09/17/2022 3:05 PM COMPARISON: CT abdomen pelvis most recent from 08/20/2021. CLINICAL INDICATION:Male, 66 years old with history of R31.0; hematuria TECHNIQUE: Urogram with imaging of the abdomen and pelvis. Coronal and sagittal reformats were performed. 2D and 3D reconstructions are performed to assist visualization of the urinary tract on a separate workstat ion. Contrast used:100 mL of Isovue 300 with IV Contrast, Oral contrast used: None. FINDINGS: LOWER CHEST: No significant findings. GENITOURINARY: RIGHT KIDNEY AND URETER: No calculi. No hydronephrosis or hydroureter. No renal mass or other lesions . No urothelial lesions: no filling defect, dilation, stricture or wall thickening. LEFT KIDNEY AND URETER: No calculi. No hydronephrosis or hydroureter. No renal mass or other lesions. No urothelial lesions: no filling defect, dilation, stricture or wall thickening. URINARY BLADDER: REPRODUCTIVE: The prostate gland is enlarged measuring up to 45 mm. Small left hydrocele is noted. ABDOMEN LIVER: Diffusely hypoattenuating, consistent with hepatic steatosis.. GALLBLADDER AND BILE DUCTS: Unremarkable PANCREAS: Lipomatous atrophy changes of the pancreatic parenchyma. SPLEEN: Unremarkable. ADRENAL GLANDS: Unremarkable. STOMACH AND BOWEL: . No evidence of bowel obstruction. Appendix is normal. PERITONEUM: No evidence of pneumoperitoneum, free fluid, or adenopathy. Increased ayleen mesentery co mpared to 08/20/2021. VASCULATURE: No evidence of aortic aneurysm. MUSCULOSKELETAL: No acute osseous abnormalities LYMPH NODES: No gross evidence for lymphadenopathy. SOFT TISSUE/ABDOMINAL WALL: Bilateral fat-containing inguinal hernias. IMPRESSION: 1. No evidence of urolithiasis or renal/urothelial neoplasm. 2. New ayleen mesentery which could represent sclerosing panniculitis versus edema from an enteritis.
== END | disposition home or self-care (01) ==
LOC: RADCTMAIN 13:17
PROVIDERS: ATTEND Urology
DX: R31.0 Gross hematuria (principal)
CPT/HCPCS: 82565; 84520; 74178; 36415; 74400; Q9967

== ENCOUNTER → 2023-01-23 | Outpatient (CLI) | payer MEDICARE, BC ==
--- NOTE | 2023-01-23 14:53 | CTL ---
EXAMINATION TYPE: CT Low Dose Lung DATE OF EXAM ORDERED: 01/23/2023 HISTORY: Malignant neoplasm respiratory tract. Lung cancer screening CT DLP: 91.[address] CTDI: 2.60 mGy Automated exposure control for dose reduction was used. SCREENING VISIT: Initial COMPARISON: None TECHNIQUE: Low dose computed tomography scan was performed through the chest at 1 mm thick sections a nd reconstructed images in the coronal plane at [address] DIAGNOSTIC QUALITY: Satisfactory FINDINGS: LUNG NODULES: None. 1. There is pleural calcification within the posterior medial right apex. Example image series 4, мария ge 46. 2. There is punctate peripheral nodule right upper lung field. Series 4 image 88. 3. There is a 0.4 cm nodule which may be within the major fissure at the right hilar region. Series 4 image 175. LUNGS: COPD: Severity: None Fibrosis: Severity: None Lymph nodes: None Other findings: None RIGHT PLEURAL SPACE: Effusion: None Calcification: Mild Thickening: None Pneumothorax: None LEFT PLEURAL SPACE: Effusion: None Calcification: None Thickening: None Pneumothorax: None HEART: Heart Size: Normal Coronary calcification: Mild Pericardial effusion: None OTHER FINDINGS: Upper abdomen: Normal Bony thorax: Normal Supraclavicular region: Normal Other: Ascending thoracic aorta at the level the main pulmonary artery measures 3.2 cm. The main pul monary artery at the bifurcation measures 2.5 cm. IMPRESSION: 1. Small benign-appearing nodules right lung. FOLLOW UP CT CHEST RECOMMENDATION: Low-dose CT chest [address] LUNG RAD: Lung-Rad 2 Benign Appearance or Behavior
== END | disposition home or self-care (01) ==
LOC: RADCTMAIN 06:37
PROVIDERS: ATTEND Family Medicine
DX: Z12.2 Encounter for screening for malignant neoplasm of respiratory organs (principal); R91.8 Other nonspecific abnormal finding of lung field; F17.210 Nicotine dependence, cigarettes, uncomplicated
CPT/HCPCS: 71271

== ENCOUNTER 2023-01-29 07:04 | Day surgery (SDC) | payer MEDICARE, BC ==
[~2023-01-29 07:04] MED LIST changes: -LACTATED RINGERS 1,000 ML IV SCH; +LIDOCAINE 1% (10MG/ML) FOR IV START INTRADERMA PRN
[2023-01-29 07:27] VITALS: TEMP 96.7
[2023-01-29 07:35] LABS: Glucose,Whole Blood 137 mg/dL (70-110)
[2023-01-29] MEDS: LACTATED RINGERS 1,000 ML IV SCH ×2 (07:35→07:54)
[2023-01-29] MEDS ORDERED: LIDOCAINE 2% INJ 20 MG/ML (2 ML VIAL) ONE (07:56)
[2023-01-29] MEDS ORDERED: PROPOFOL 10 MG/ML 20 ML VIAL IV ONE (07:56)
--- NOTE | 2023-01-29 08:02 | P.GSHP ---
History of Present Illness H&P Date: 01/29/23 CHIEF COMPLAINT: Colon screen HISTORY OF PRESENT ILLNESS: The patient is a 67-year-old male who presents for colon screen. Lower endoscopy was offered for further evaluation and management. PAST MEDICAL HISTORY: Please see list. PAST SURGICAL HISTORY: Please see list. MEDICATIONS: Please see list. ALLERGIES: Please see list. SOCIAL HISTORY: No illicit drug use FAMILY HISTORY: No reports of Crohn disease or ulcerative colitis. REVIEW OF ORGAN SYSTEMS: CONSTITUTIONAL: No reports of fevers or chills. PHYSICAL EXAM: VITAL SIGNS: Stable GENERAL: Well-developed pleasant in no acute distress. HEENT: No scleral icterus. Extraocular movements grossly intact. Moist buccal mucosa. NECK: Supple without lymphadenopathy. CHEST: Unlabored respirations. Equal bilateral excursions. CARDIOVASCULAR: Regular rate and rhythm. Distal 2+ pulses. ABDOMEN: Soft, nontender, nondistended. MUSCULOSKELETAL: No clubbing, cyanosis, or edema. ASSESSMENT: 1. Colon screen. PLAN: 1. Recommend proceeding with a lower endoscopy Past Medical History Past Medical History: Atrial Fibrillation, COPD, CVA/TIA, Diabetes Mellitus, GERD/Reflux, Osteoarthritis (OA), Sleep Apnea/CPAP/BIPAP Additional Past Medical History / Comment(s): No cpap. NIDDM. PAST hx. a fib, dysphagia, colon polyps. FOR stroke in September-all sx. resolved per pt. CHRONIC LOW BACK PAIN History of Any Multi-Drug Resistant Organisms: None Reported Past Surgical History: Cardiac Ablation, Tonsillectomy Additional Past Surgical History / Comment(s): colonoscopy, PAIN CLINIC IN [facility] Past Anesthesia/Blood Transfusion Reactions: No Reported Reaction Past Psychological History: Bipolar Smoking Status: Current every day smoker Past Alcohol Use History: Occasional Additional Past Alcohol Use History / Comment(s): STARTED SMOKING AT AGE 14 SMOKES, 1PPD Past Drug Use History: Marijuana Additional Drug Use History / Comment(s): OCCASIONAL USE of edibles - Past Family History Mother Family Medical History: No Reported History Medications and Allergies Home Medications Medication Instructions Recorded Confirmed Type clomiPRAMINE HCL 225 mg PO DAILY 12/03/15 01/27/23 History lamoTRIgine [LaMICtal] 100 mg PO HS 09/08/16 01/27/23 History Empagliflozin [Jardiance] 25 mg PO QAM 08/19/21 01/27/23 History QUEtiapine [SEROquel] 400 mg PO HS 30 Days #30 tab 08/26/21 01/27/23 Rx Atorvastatin [Lipitor] 80 mg PO HS 30 Days #30 tab 10/02/21 01/27/23 Rx Aspirin 81 mg PO DAILY 11/05/21 01/27/23 History Tiotropium [place] [Spiriva] 1 cap INHALATION DAILY PRN 11/05/21 01/27/23 History Losartan [Cozaar] 25 mg PO QAM 01/27/23 01/27/23 History Omeprazole [PriLOSEC] 40 mg PO QAM 01/27/23 01/27/23 History sitaGLIPtin PHOS/metFORMIN HCL 1 tab PO BID 01/27/23 01/27/23 History [Janumet 50-1,000 mg Tablet] Allergies Allergy/AdvReac Type Severity Reaction Status Date / Time No Known Allergies Allergy Verified 01/29/23 07:21 Surgical - Exam Vital Signs Temp Pulse Resp BP Pulse Ox 96.7 F L 96 20 171/82 97 01/29/23 07:26 01/29/23 07:26 01/29/23 07:26 01/29/23 07:26 01/29/23 07:26 Results - Labs Abnormal Lab Results - Last 24 Hours (Table) 01/29/23 Range/Units 07:33 POC Glucose (mg/dL) 137 H (70-110) mg/dL
[2023-01-29 08:29] VITALS: RESP 16
[2023-01-29 08:48] VITALS: BP 139/76; PULSE 82
--- NOTE | 2023-01-29 08:54 | P.PCN ---
Date of Procedure: 01/29/23 Description of Procedure: PREOPERATIVE DIAGNOSIS: Personal history of colon polyps Colonoscopy screening POSTOPERATIVE DIAGNOSIS: Tubular adenoma descending colon Tubular adenoma sigmoid colon Internal hemorrhoids, grade 2 OPERATION: Colonoscopy to the ileocecal valve and appendiceal orifice, cecum Colonoscopy with hot snare polypectomy SURGEON: Loretta Stoddard MD. ANESTHESIA: MAC. INDICATIONS: The patient is an 67-year-old male who presents personal history of colon polyps. Last colonoscopy 5 years. Benefits and risks were described and informed consent was obtained. DESCRIPTION OF PROCEDURE: The patient had undergone Suprep. The patient had been brought into the operating room and laid in the left lateral decubitus position. After adequate intravenous sedation, the rectum was examined with 2% lidocaine jelly. The prostate was unremarkable. External hemorrhoids were encountered. The rectal tone was within normal limits. No lesions were palpated in the rectal vault. An Olympus colonoscope was advanced until the cecum, ileocecal valve and appendiceal orifice were clearly viewed. The prep was good. No large sigmoid diverticulosis was encountered. Colonic polyps were found and removed. No evidence of focal colitis was found. Retroflexion of the scope demonstrated grade 2 internal hemorrhoids without active bleeding or inflammation. The colon was desufflated. The patient had tolerated the procedure well. Withdrawal time was over 6 minutes. FINDINGS: Aronchick preparation quality scale 1+ (1-5) Internal hemorrhoids, grade 2 External hemorrhoids, grade 2. No arteriovenous malformations. No large sigmoid diverticulosis Removal of 2 polyps: - Snare polypectomy 20 cm from the anal verge, 8 mm tubulovillous adenoma, sigmoid colon - Snare polypectomy 40 cm from the anal verge, 5 mm flat villous adenoma, descending colon No focal colitis. RECOMMENDATIONS: 1. Repeat colonoscopy 3 years, 2025 Plan - Discharge Summary Discharge Rx Participant: No New Discharge Prescriptions: Continue clomiPRAMINE HCL 225 mg PO DAILY lamoTRIgine [LaMICtal] 100 mg PO HS QUEtiapine [SEROquel] 400 mg PO HS 30 Days #30 tab Aspirin 81 mg PO DAILY Empagliflozin [Jardiance] 25 mg PO QAM Atorvastatin [Lipitor] 80 mg PO HS 30 Days #30 tab Tiotropium [place] [Spiriva] 1 cap INHALATION DAILY PRN PRN Reason: Shortness Of Breath Omeprazole [PriLOSEC] 40 mg PO QAM Losartan [Cozaar] 25 mg PO QAM sitaGLIPtin PHOS/metFORMIN HCL [Janumet 50-1,000 mg Tablet] 1 tab PO BID Discharge Medication List clomiPRAMINE HCL 225 mg PO DAILY 12/03/15 [History] lamoTRIgine [LaMICtal] 100 mg PO HS 09/08/16 [History] Empagliflozin [Jardiance] 25 mg PO QAM 08/19/21 [History] QUEtiapine [SEROquel] 400 mg PO HS 30 Days #30 tab 08/26/21 [Rx] Atorvastatin [Lipitor] 80 mg PO HS 30 Days #30 tab 10/02/21 [Rx] Aspirin 81 mg PO DAILY 11/05/21 [History] Tiotropium [place] [Spiriva] 1 cap INHALATION DAILY PRN 11/05/21 [History] Losartan [Cozaar] 25 mg PO QAM 01/27/23 [History] Omeprazole [PriLOSEC] 40 mg PO QAM 01/27/23 [History] sitaGLIPtin PHOS/metFORMIN HCL [Janumet 50-1,000 mg Tablet] 1 tab PO BID 01/27/23 [History] Follow up Appointment(s)/Referral(s): Loretta Stoddard MD [STAFF PHYSICIAN] - As Needed Patient Instructions/Handouts: *Surgery [facility] - (Anesthesia) Discharge Instructions Outpatient Surgery, Colonoscopy (DC), Colorectal Polyps (GEN) Activity/Diet/Wound Care/Special Instructions: Repeat colonoscopy in 3 years, 2025
== END 2023-01-29 09:07 | disposition home or self-care (01) ==
LOC: ORWHC2ENDO 07:04
PROVIDERS: ATTEND Surgery Plastic and Reconstructive Surgery
DX: Z12.11 Encounter for screening for malignant neoplasm of colon (principal); D12.4 Benign neoplasm of descending colon; D12.5 Benign neoplasm of sigmoid colon; K64.1 Second degree hemorrhoids; J44.9 Chronic obstructive pulmonary disease, unspecified; E11.9 Type 2 diabetes mellitus without complications; K21.9 Gastro-esophageal reflux disease without esophagitis; F17.210 Nicotine dependence, cigarettes, uncomplicated; G47.33 Obstructive sleep apnea (adult) (pediatric); Z86.010 Personal history of colon polyps; Z79.84 Long term (current) use of oral hypoglycemic drugs; Z86.59 Personal history of other mental and behavioral disorders; Z79.82 Long term (current) use of aspirin; Z79.899 Other long term (current) drug therapy
CPT/HCPCS: 88305; 45385; J2704; J2001

== ENCOUNTER 2024-01-20 15:25 | Emergency (ER) | payer MEDICARE, BC ==
[2024-01-20] MEDS ORDERED: SODIUM CHLORIDE 0.9% 1,000 ML BAG ONE (16:15)
[2024-01-20] MEDS ORDERED: DILTIAZEM 5 MG/ML 5 ML VIAL ONE (16:21)
== END 2024-01-20 21:12 | disposition home or self-care (01) ==
LOC: EC 15:25
CPT/HCPCS: 93005; 96374; 99285

== ENCOUNTER 2024-01-22 13:30 | Inpatient (IN) | payer MEDICARE, BC ==
[~2024-01-22 13:30] MED LIST changes: +ASPIRIN 325 MG TAB ONE; +DILTIAZEM 125 MG/25 ML VIAL IV ONE; +DILTIAZEM 5 MG/ML 5 ML VIAL ONE; +HYDROmorphone 0.5 MG/0.5 ML SYRINGE ONE; -LIDOCAINE 1% (10MG/ML) FOR IV START INTRADERMA PRN; +SODIUM CHLORIDE 0.9% 100 ML BAG ONE; +SODIUM CHLORIDE 0.9% 500 ML BAG ONE
[2024-01-22] MEDS ORDERED: HYDROmorphone 0.5 MG/0.5 ML SYRINGE ONE (13:46)
[2024-01-22] MEDS ORDERED: HEPARIN SOD,PORK IN 0.45% NACL 250 ML IV ONE (13:46)
[2024-01-22] MEDS ORDERED: HEPARIN SODIUM 1,000 UN/ML (10ML VL) ONE (13:46)
[2024-01-22] MEDS ORDERED: PANTOPRAZOLE 40 MG/10 ML VIAL ONE (22:35)
[2024-01-22] MEDS ORDERED: methylPREDNISolone SOD SUCCI 125 MG/2 ML VIAL ONE (22:35)
[2024-01-22] MEDS ORDERED: INSULIN ASPART (NovoLOG) 100 UNIT/ML VIAL SQ ONE (22:35)
[2024-01-23] MEDS ORDERED: MORPHINE SULFATE 2 MG/ML SYRINGE ONE ×2 (00:35→00:37)
[2024-01-23] MEDS ORDERED: TEMAZEPAM 15 MG CAP ONE (02:14)
[2024-01-23] MEDS ORDERED: methylPREDNISolone SOD SUCCI 125 MG/2 ML VIAL ONE ×3 (07:16→12:18)
[2024-01-23] MEDS ORDERED: SODIUM CHLORIDE 0.9% 100 ML BAG IV ONE (08:00)
[2024-01-23] MEDS ORDERED: DILTIAZEM 125 MG/25 ML VIAL IV ONE (08:00)
[2024-01-23] MEDS ORDERED: ACETAMINOPHEN TAB 325 MG TAB ONE (09:16)
[2024-01-23] MEDS ORDERED: LOSARTAN 25 MG TAB ONE (09:16)
[2024-01-23] MEDS ORDERED: PANTOPRAZOLE 40 MG/10 ML VIAL ONE (09:16)
[2024-01-23] MEDS ORDERED: ASPIRIN 81 MG ONE (09:16)
[2024-01-23] MEDS ORDERED: DAPAGLIFLOZIN PROPANEDIOL 5 MG TABLET ONE (09:17)
[2024-01-23] MEDS ORDERED: LINAGLIPTIN 5 MG TABLET ONE (09:17)
[2024-01-23] MEDS ORDERED: INSULIN ASPART (NovoLOG) 100 UNIT/ML VIAL SQ ONE (12:18)
[2024-01-23] MEDS ORDERED: AMIODARONE 200 MG TAB ONE (13:44)
[2024-01-23] MEDS ORDERED: APIXABAN 5 MG TAB ONE (13:45)
[2024-01-23] MEDS ORDERED: IPRATROPIUM-ALBUTEROL 3 ML NEB ONE (16:09)
--- NOTE | 2024-02-12 13:43 | CT ---
Patient Rene Gonzalez ID [id number] Order # [id number] CHEST EXAMINATION TYPE: CT chest angio for PE DATE OF EXAM: 01/22/2024 INDICATION: Heart palpitations positive d-dimer CT DLP: 319.2 mGycm, Automated exposure control for dose reduction was used. CONTRAST: Patient injected with 60 mL of Isovue 370. COMPARISON: No comparison available on downtime PACS. TECHNIQUE: CT of the chest is performed on a spiral scan at 2 mm thick sections. Study is performed with intravenous contrast timed for evaluation for pulmonary embolism. This will limit additional po rtions of the evaluation. 3-D MIP images reconstructed by the technologist are reviewed on the compu ter in the coronal and sagittal planes. FINDINGS: No persistent filling defects are evident to suggest an acute pulmonary embolism. No mediastinal or hilar adenopathy enlarged by CT criteria is evident. The ascending aorta diameter at the level of the main pulmonary artery is 3.2 cm. The main pulmonary artery diameter at the bifurcation is 2.5 cm. Some minimal infiltrate along the mediastinal border in the lingula is present, series [address] sections were through the upper abdomen. There is fatty infiltration and atrophy of the p ancreas. IMPRESSION: 1. No acute pulmonary embolism. 2. Minimal infiltrate lingula correlate for atelectasis.
--- NOTE | 2024-02-22 14:03 | CA ---
Transthoracic Echo Report Name: Rene Gonzalez Age: 68 Gender: O : 1955 Exam Date: 01/22/2024 16:10 Exam Location: [facility] Ht (in): 67 Wt (lb): 170 Ordering Physician: Attending/Referring Phys: Lens Engraver Jalyn Carey RDCS Procedure CPT: Indications: Cardiac Hx: hx of oblation Technical Quality: Good Contrast 1: Definity Total Dose (mL): 2 Contrast 2: Total Dose (mL): MEASUREMENTS (Male / Female) Normal Values 2D ECHO LV Diastolic Diameter PLAX 5.0 cm 4.2 - 5.9 / 3.9 - 5.3 cm LV Systolic Diameter PLAX 4.2 cm IVS Diastolic Thickness 1.0 cm 0.6 - 1.0 / 0.6 - 0.9 cm LVPW Diastolic Thickness 1.0 cm 0.6 - 1.0 / 0.6 - 0.9 cm LV Relative Wall Thickness 0.4 RV Internal Dim ED PLAX 3.4 cm LA Systolic Diameter LX 3.9 cm 3.0 - 4.0 / 2.7 - 3.8 cm LA Volume 61.7 cm??? 18 - 58 / 22 - 52 cm??? LA Volume Index 32.0 cm???/m??? 16 - 28 cm???/m??? M-MODE Aortic Root Diameter MM 2.9 cm AV Cusp Separation MM 1.8 cm DOPPLER AV Peak Velocity 123.6 cm/s AV Peak Gradient 6.1 mmHg MV Area PHT 5.5 cm??? MR Peak Velocity 482.8 cm/s MR Peak Gradient 93.2 mmHg MV Deceleration Time 94.3 ms TR Peak Velocity 262.3 cm/s TR Peak Gradient 27.5 mmHg Right Ventricular Systolic Press 31.7 mmHg FINDINGS Left Ventricle Left ventricular ejection fraction is estimated at 35-40 %. Left ventricular cavity size normal. Left ventricular wall thickness normal. Moderately reduced global left ventricular systolic function. Right Ventricle Mild right ventricular dilatation. Right ventricular systolic pressure within normal limits. Right Atrium Normal right atrial size. No right atrial thrombus or mass seen. Left Atrium Mildly increased left atrial volume. Mildly increased left atrial area. Mitral Valve Mitral valve thickened. Mild mitral annular calcification. Moderate mitral regurgitation. Aortic Valve Trileaflet aortic valve. Thickened aortic valve without stenosis. Tricuspid Valve Structurally normal tricuspid valve. Mild tricuspid regurgitation. Pulmonic Valve Structurally normal pulmonic valve. Trace pulmonic regurgitation. Pericardium No pericardial or pleural effusion. Aorta Normal size aortic root and proximal ascending aorta. CONCLUSIONS Left ventricular ejection fraction 35-40% RVSP 31 Mildly dilated left atrium Mild mitral regurgitation Mild tricuspid regurgitation Previewed by: Dr. Renny Schmid DO (Electronically Signed) Final Date: 23 January 2024 12:33
--- NOTE | 2024-02-23 07:50 | XR ---
Site ID [facility] Rene Ramirez ID [id number] Order # Procedure XR chest 2V EXAMINATION TYPE: XR chest 2V DATE OF EXAM: 01/22/2024 11:19 AM CLINICAL INDICATION: chest pain, hx afib COMPARISON: None TECHNIQUE: XR chest 2V Frontal view of the chest. FINDINGS: Lungs/Pleura: There is no evidence of pleural effusion, focal consolidation, or pneumothorax. Pulmonary vascularity: Unremarkable. Heart/mediastinum: Cardiomediastinal silhouette is unremarkable. Musculoskeletal: No acute osseous pathology. IMPRESSION: No acute cardiopulmonary disease/process.
--- NOTE | 2024-02-26 12:49 | XR ---
EXAM: XR Abdomen, 1 View and XR Chest, 1 View CLINICAL HISTORY: Abd pain/distention TECHNIQUE: Frontal view of the chest and abdomen/pelvis. COMPARISON: No relevant prior studies available. FINDINGS: Lungs:Unremarkable. No consolidation. Pleural space:Unremarkable. No pneumothorax. Heart: Mildly prominent heart size. Mediastinum:Unremarkable. Normal mediastinal contour. Intraperitoneal space:No free air. Gastrointestinal tract:Non obstructed bowel gas pattern. Bones/joints:Diffuse osseous demineralization. No acute fracture or subluxation. IMPRESSION: Non obstructed bowel gas pattern. Radiologist: Slim Isaac MD Electronically Signed: 01/23/24 02:18 Study ready at 00:12 and initial results transmitted at 02:18 [facility]
== END 2024-01-23 13:00 | disposition home or self-care (01) | DRG 310 ==
LOC: 3SCARD 13:30
PROVIDERS: ADMIT Urology; ATTEND Urology
DX: I48.0 Paroxysmal atrial fibrillation (principal); E11.9 Type 2 diabetes mellitus without complications; I10 Essential (primary) hypertension; R29.6 Repeated falls; E78.5 Hyperlipidemia, unspecified; J44.9 Chronic obstructive pulmonary disease, unspecified; Z86.73 Personal history of transient ischemic attack (TIA), and cerebral infarction without residual deficits; Z79.899 Other long term (current) drug therapy
CPT/HCPCS: 71046; 71275; 74018; 85652; 93005; 93306; 94640; 94760; 96361; 96374; 96375; 99291